=== PATIENT | female | born 1980 | race Caucasian/White ===

== ENCOUNTER 2016-06-19 16:59 | Emergency (ER) | payer OTHER ==
[~2016-06-19 16:59] MED LIST: AMOX500C PO; DOCU10CA PO; IBUP80TA PO; LEXA1TAB PO; LIDO1PAD EX; LINZ290C PO; MOTR200T44; MYLI40DR PO; PERCOCET PO; VICO5TAB16 PO
[2016-06-19] MEDS ORDERED: KETOROLAC 30 MG/ML VIAL (J1885) As Ordered ONE (17:57)
[2016-06-19] MEDS ORDERED: ACETAMINOPHEN 325 MG TAB As Ordered ONE (17:57)
[2016-06-19] MEDS ORDERED: TRIMETHOBENZAMIDE HCL INJ 200 MG/2 ML VIAL (J3250) As Ordered ONE (18:08)
[2016-06-19 18:15] LABS: BASO % 0.1 % (0.0-1.0); EOS # 0.1 K/mm3 (0.0-0.50); EOS % 0.8 % (0.0-3.0); LARGE UNSTAINED CELL # 0.1 K/mm3 (0.0-0.4); LARGE UNSTAINED CELL % 0.8 % (0.0-4.0); LYMPH # 0.5 K/mm3 (1.5-4.5); LYMPH % 3.9 % (24.0-44.0); MEAN CORPUSCULAR HEMOGLOBIN 31.6 pg (27.0-33.0); MEAN CORPUSCULAR HGB CONC 34.8 g/dl (32.0-36.5); MEAN CORPUSCULAR VOLUME 90.7 fl (80.0-96.0); MONO # 0.2 K/mm3 (0.0-0.8); MONO % 1.9 % (0.0-5.0); NEUTROPHILS # 11.1 K/mm3 (1.8-7.7); NEUTROPHILS % 92.5 % (36.0-66.0); PLATELET COUNT, AUTOMATED 286 k/mm3 (150-450); RED CELL DISTRIBUTION WIDTH 12.2 % (11.5-14.5)
[2016-06-19] MEDS ORDERED: GASTROGRAFIN SOLUTION 30ML (Q9963) As Ordered ONE (18:34)
--- NOTE | 2016-06-19 18:38 | REP ---
TWO VIEW CHEST: COMPARISON: 01/11/2004 There is no evidence of acute infiltrate. No pleural effusion is seen. The heart is normal in size. The mediastinal silhouette is unremarkable. The visualized osseous structures are intact. IMPRESSION: No acute pulmonary disease. Signed by Arnol Ames MD 06/19/2016 07:42 P
[2016-06-19 18:43] LABS: ALBUMIN 3.9 GM/DL (3.2-5.2); ALBUMIN/GLOBULIN RATIO 1.03 (1.00-1.93); ALKALINE PHOSPHATASE 67 U/L (45-117); ALT/SGPT 48 U/L (12-78); AMYLASE 23 U/L (25-115); ANION GAP 9 MEQ/L (8-16); AST/SGOT 21 U/L (15-37); BILIRUBIN,DIRECT 0.2 MG/DL (0.0-0.2); BILIRUBIN,TOTAL 1.5 MG/DL (0.2-1.0); BLOOD UREA NITROGEN 12 MG/DL (7-18); CALCIUM LEVEL 8.9 MG/DL (8.5-10.1); CARBON DIOXIDE LEVEL 26 MEQ/L (21-32); CHLORIDE LEVEL 104 MEQ/L (98-107); CREATININE FOR GFR 0.93 MG/DL (0.55-1.02); GLOMERULAR FILTRATION RATE > 60.0 (>60); GLUCOSE, FASTING 109 MG/DL (70-105); POTASSIUM SERUM 3.8 MEQ/L (3.5-5.1); SODIUM LEVEL 139 MEQ/L (136-145); TOTAL PROTEIN 7.7 GM/DL (6.4-8.2)
[2016-06-19] MEDS ORDERED: ISOVUE-370 76% 100ML VIAL (Q9967) As Ordered ONE (20:52)
--- NOTE | 2016-06-19 22:20 | REPUSA ---
CLINICAL HISTORY: Periumbilical pain TECHNIQUE : A CT of the abdomen and pelvis was performed following the administration of oral and int ravenous contrast from the level of the heart to the proximal femoral diaphyses. Multiplanar reformat s were also obtained in coronal and sagittal projections. COMPARISON: None FINDINGS: LOWER CHEST: The lung bases are clear. Heart is normal in size. No pleural or pericardial effusion is seen. LIVER: The liver is normal in size and contour. No hepatic lesion is seen. The portal and hepatic vei ns are patent. BILIARY SYSTEM: No intrahepatic biliary ductal dilatation is seen. The common duct is normal in calib er. The gallbladder is unremarkable with no focal or diffuse wall thickening seen. No pericholecystic fluid is seen. No calcified biliary calculi are identified. PANCREAS: The pancreas is normal in size, contour and density. No solid or cystic pancreatic mass is seen. No pancreatic duct dilatation is seen. SPLEEN: The spleen is normal in size and without focal lesion. ADRENALS: The adrenal glands are unremarkable. KIDNEYS/URETERS: The kidneys are normal in size and enhance normally. No calcified renal or ureteral calculi are seen. No suspicious renal mass or hydronephrosis is seen. The ureters are not dilated. URINARY BLADDER: The urinary bladder is unremarkable without calcified stone, wall thickening or dive rticula seen. UTERUS/ADNEXA: Uterus is absent. Bilateral adnexa. Within normal limits with corpus luteal cyst on le ft AORTA AND ILIAC ARTERIES: No aneurysmal dilatation of the aorta or iliac arteries is seen. INFERIOR VENA CAVA AND PELVIC VEINS: No deep venous thrombosis is seen. LYMPH NODES: No enlarged adenopathy. GASTROINTESTINAL: Stomach, duodenum , and bowel normal in caliber. PERITONEUM/RETROPERITONEUM: No ascites or suspicious fluid collection, extraluminal air, or suspiciou s mass. ABDOMINAL/PELVIC WALL: No hernia is identified. OSSEOUS STRUCTURES/SOFT TISSUES: No suspicious osseous lesion, acute fracture, or soft tissue abnorma lity. IMPRESSION : No acute intra-abdominal pelvic abnormality
[2016-06-19] MEDS ORDERED: ONDANSETRON 4MG/2ML VIAL (J2405) As Ordered ONE (22:50)
--- NOTE | 2016-06-19 23:01 | EDDOCDS ---
Nurse's Notes [facility] Name: Modesta Carson Age: 36 yrs Sex: Female : 1980 Arrival Date: 06/19/2016 Time: 16:59 Bed I1 / M1 Private MD: Alan [facility] [place] Diagnosis: Right lower quadrant abdominal tenderness;Diarrhea, unspecified;Acute upper respiratory infection, unspecified Presentation: 06/19 17:09 Presenting complaint: Patient states: Had some nasal congestion yesterday. Today has jo3 body aches and vomiting/diarrhea. Adult Sepsis Screening: The patient does not have new or worsening altered mentation. Patient's respiratory rate is less than 22. Systolic blood pressure is greater than 100. Patient has a qSOFA score of 0- Negative Sepsis Screen. Suicide/Homicide risk assessment- the patient denies having any suicidal and/or homicidal ideations and does not present with any other emotional, behavioral or mental health complaints. Status:. Status: The patient is a dependent. Transition of care: patient was not received from another setting of care. 17:09 Acuity: RAYSA Level 3 jo3 17:09 Method Of Arrival: Walkin/Carried/Asstd jo3 Triage Assessment: 17:12 General: Appears in no apparent distress, Behavior is appropriate for age, cooperative, jo3 pleasant. Pain: Pain currently is 8 out of 10 on a pain scale. HIV screening NA for this visit Offered previously. Neurological: Level of Consciousness is awake, alert, Oriented to person, place, time. Respiratory: Airway is patent Respiratory effort is even, unlabored. Derm: Skin is pink, warm & dry. HOSPITAL AIDE: 17:12 LMP N/A - Hysterectomy jo3 Historical: - Allergies: No known drug Allergies; - Home Meds: 1. Lexapro 20 mg Oral tab 1 tab once daily 2. Vitamin D 5000mg Oral daily 3. Linzess 145 mcg oral cap 1 cap once daily 4. Fish Oil 1,000 mg Oral cap daily - PMHx: IBS; Depression; Anxiety; - PSHx: Hysterectomy (2013); - Family history: Not pertinent. Screenin:53 Screening information is obtained from the patient. Fall risk: No risks identified. kc3 Assistance ADL's: requires no assistance with activities of daily living. Abuse/DV Screen: The patient / caregiver reports he/she is: not in a situation that causes fear, pain or injury. Nutritional screening: No deficits noted. home support is adequate. 22:58 Advance Directives: There is no active DNR order. mb9 Assessment: 19:06 General: Appears skin hot and dry. no resp distress noted. chest CTA. ABD soft and non jmk distended with bs + x 4. diffusely tender and describes nausea without active vomiting. GI: Bowel sounds present X 4 quads. Abd is tender to palpation X 4 quads. 19:38 General: Appears in no apparent distress, Behavior is appropriate for age, cooperative. mb9 Respiratory: Airway is patent Respiratory effort is even, unlabored. 21:14 Reassessment: Patient appears in no apparent distress at this time. General: Behavior mb9 is appropriate for age, cooperative. Respiratory: Airway is patent Respiratory effort is even, unlabored. 22:58 Reassessment: Patient appears in no apparent distress at this time. General: Appears in mb9 no apparent distress, Behavior is appropriate for age, cooperative. Respiratory: Airway is patent Respiratory effort is even, unlabored. GI: Reports nausea. Vital Signs: 17:01 BP 135 / 82; Pulse 123; Resp 18 S; Temp 100.2(O); Pulse Ox 97% on R/A; Weight 90.72 kg gr2 (R); Height 5 ft. 8 in. (172.72 cm) (R); Pain 4/10; 18:58 BP 123 / 69 LA Supine (auto/lg); Pulse 88; Resp 20; Temp 99.5; Pulse Ox 97% on R/A; bnb Pain 0/10; 22:58 BP 156 / 79; Pulse 74; Resp 17; Temp 98(O); Pulse Ox 99% ; mb9 17:01 Body Mass Index 30.41 (90.72 kg, 172.72 cm) gr2 Vitals: 17:01 Log In Time: June 19, 2016 at 17:01. gr2 ED Course: 17:01 Patient visited by Arabella Sandy. gr2 17:01 Alan [facility] [place] is Private Physician. gr2 17:01 Patient moved to Waiting gr2 17:02 Patient visited by Arabella Sandy. gr2 17:02 Patient moved to Pre RCE gr2 17:10 Triage Initiated jo3 17:16 Nikki Slaughter PA-C is PHCP. dt4 17:16 Martin Emerson MD is Attending Physician. dt4 17:16 Patient visited by Nikki Slaughter PA-C. dt4 17:16 Patient moved to Triage 1 ck1 17:28 Patient moved to I1 / M1 nb2 17:56 [facility] Payment Agreement was scanned into [employer] and attached to record. zo 18:12 PHCP role handed off by Nikki Slaughter PA-C mo1 18:12 Gabino Blake PA is PHCP. mo1 18:25 Patient visited by Beverly Chau RN. kc3 18:30 Inserted saline lock: 20 gauge in right antecubital area. jmk 18:54 Patient visited by Beverly Chau RN. kc3 18:58 Patient visited by Liliana Landers PCA. bnb 19:22 Chest, 2 View (pa\E\lat) Returned. EDMS 20:10 Patient visited by Gabino Marquis RN. mb9 20:27 Chest, 2 View (pa\E\lat) Returned. EDMS 21:14 Patient visited by Gabino Marquis RN. mb9 22:28 Alan [facility] [place] is Referral Physician. mo1 22:38 CT ABD & PELVIS: IV and Oral Contrast Returned. EDMS 22:58 The patient / caregiver is instructed regarding the plan of care and ED course. mb9 22:58 Discontinued IV lock intact, bleeding controlled, pressure dressing applied, No mb9 redness/swelling at site. No procedures done that require assistance. Administered Medications: 18:22 Drug: Tigan 200 mg [Tigan 100 mg/mL intramuscular solution (2 mL)] Route: IM; Site: kc3 right gluteus; 18:23 Drug: NS 0.9% 1000 ml [sodium chloride 0.9 % intravenous solution] Route: IV; Rate: kc3 bolus; Site: right antecubital; 18:23 Drug: ketorolac 30 mg [ketorolac 30 mg/mL (1 mL) injection solution (1 mL)] Route: IVP; kc3 Site: right antecubital; 18:23 Drug: Acetaminophen 975 mg [acetaminophen 325 mg tablet (3 tabs)] Route: PO; kc3 18:51 Drug: Diatrizoate Meglumine & Sodium 10 ml [diatrizoate meglumine and diat.sodium 66 kc3 %-10 % oral solution (10 mL)] Route: PO; 19:19 Drug: Diatrizoate Meglumine & Sodium 10 ml [diatrizoate meglumine and diat.sodium 66 mb9 %-10 % oral solution (10 mL)] Route: PO; 22:58 Drug: Ondansetron 4 mg [ondansetron HCl 2 mg/mL intravenous solution (2 mL)] Route: mb9 IVP; Site: right forearm; Order Results: Lab Order: Amylase; SPEC'M 06/19/16 18:01 Test: AMYLASE; Value: 23; Range: 25-115; Abnormal: Below low normal; Units: U/L; Status: F Lab Order: Basic Metabolic Profile; SPEC'M 06/19/16 18:01 Test: GLUCOSE, FASTING; Value: 109; Range: 70-105; Abnormal: Above high normal; Units: MG/DL; Status: F Test: BLOOD UREA NITROGEN; Value: 12; Range: 7-18; Units: MG/DL; Status: F Test: CREATININE FOR GFR; Value: 0.93; Range: 0.55-1.02; Units: MG/DL; Status: F Test: GLOMERULAR FILTRATION RATE; Value: > 60.0; Range: >60; Status: F Test: SODIUM LEVEL; Value: 139; Range: 136-145; Units: MEQ/L; Status: F Test: POTASSIUM SERUM; Value: 3.8; Range: 3.5-5.1; Units: MEQ/L; Status: F Test: CHLORIDE LEVEL; Value: 104; Range: 98-107; Units: MEQ/L; Status: F Test: CARBON DIOXIDE LEVEL; Value: 26; Range: 21-32; Units: MEQ/L; Status: F Test: ANION GAP; Value: 9; Range: 8-16; Units: MEQ/L; Status: F Test: CALCIUM LEVEL; Value: 8.9; Range: 8.5-10.1; Units: MG/DL; Status: F Test Note: ; Units are mL/min/1.73 m2 Chronic Kidney Disease Staging per NKF: Stage I & II GFR >=60 Normal to Mildly Decreased Stage III GFR 30-59 Moderately Decreased Stage IV GFR 15-29 Severely Decreased Stage V GFR <15 Very Little GFR Left ESRD GFR <15 on DIRECTOR OF PUPIL PERSONNEL PROGRAM Lab Order: CBC with Diff; SPEC'M 06/19/16 18:01 Test: WHITE BLOOD COUNT; Value: 12.0; Range: 4.0-10.0; Abnormal: Above high normal; Units: K/mm3; Status: F Test: RED BLOOD COUNT; Value: 5.11; Range: 4.00-5.40; Units: M/mm3; Status: F Test: HEMOGLOBIN; Value: 16.1; Range: 12.0-16.0; Abnormal: Above high normal; Units: g/dl; Status: F Test: HEMATOCRIT; Value: 46.4; Range: 36.0-47.0; Units: %; Status: F Test: MEAN CORPUSCULAR VOLUME; Value: 90.7; Range: 80.0-96.0; Units: fl; Status: F Test: MEAN CORPUSCULAR HEMOGLOBIN; Value: 31.6; Range: 27.0-33.0; Units: pg; Status: F Test: MEAN CORPUSCULAR HGB CONC; Value: 34.8; Range: 32.0-36.5; Units: g/dl; Status: F Test: RED CELL DISTRIBUTION WIDTH; Value: 12.2; Range: 11.5-14.5; Units: %; Status: F Test: PLATELET COUNT, AUTOMATED; Value: 286; Range: 150-450; Units: k/mm3; Status: F Test: NEUTROPHILS %; Value: 92.5; Range: 36.0-66.0; Abnormal: Above high normal; Units: %; Status: F Test: LYMPH %; Value: 3.9; Range: 24.0-44.0; Abnormal: Below low normal; Units: %; Status: F Test: MONO %; Value: 1.9; Range: 0.0-5.0; Units: %; Status: F Test: EOS %; Value: 0.8; Range: 0.0-3.0; Units: %; Status: F Test: BASO %; Value: 0.1; Range: 0.0-1.0; Units: %; Status: F Test: LARGE UNSTAINED CELL %; Value: 0.8; Range: 0.0-4.0; Units: %; Status: F Test: NEUTROPHILS #; Value: 11.1; Range: 1.8-7.7; Abnormal: Above high normal; Units: K/mm3; Status: F Test: LYMPH #; Value: 0.5; Range: 1.5-4.5; Abnormal: Below low normal; Units: K/mm3; Status: F Test: MONO #; Value: 0.2; Range: 0.0-0.8; Units: K/mm3; Status: F Test: EOS #; Value: 0.1; Range: 0.0-0.50; Units: K/mm3; Status: F Test: BASO #; Value: 0.0; Range: 0.0-0.2; Units: K/mm3; Status: F Test: LARGE UNSTAINED CELL #; Value: 0.1; Range: 0.0-0.4; Units: K/mm3; Status: F Lab Order: Lipase; [facility]' 06/19/16 18:01 Test: LIPASE; Value: 109; Range: 73-393; Units: U/L; Status: F Lab Order: Liver Profile; SPEC' 06/19/16 18:01 Test: AST/SGOT; Value: 21; Range: 15-37; Units: U/L; Status: F Test: ALT/SGPT; Value: 48; Range: 12-78; Units: U/L; Status: F Test: ALKALINE PHOSPHATASE; Value: 67; Range: 45-117; Units: U/L; Status: F Test: BILIRUBIN,TOTAL; Value: 1.5; Range: 0.2-1.0; Abnormal: Above high normal; Units: MG/DL; Status: F Test: BILIRUBIN,DIRECT; Value: 0.2; Range: 0.0-0.2; Units: MG/DL; Status: F Test: TOTAL PROTEIN; Value: 7.7; Range: 6.4-8.2; Units: GM/DL; Status: F Test: ALBUMIN; Value: 3.9; Range: 3.2-5.2; Units: GM/DL; Status: F Test: ALBUMIN/GLOBULIN RATIO; Value: 1.03; Range: 1.00-1.93; Status: F Lab Order: Urinalysis; SPEC' 06/19/16 19:08 Test: APPEARANCE, URINE; Value: HAZY; Range: CLEAR; Status: F Test: COLOR, URINE; Value: YELLOW; Range: YELLOW; Status: F Test: PH,URINE; Value: 5.0; Range: 5.0-9.0; Units: UNITS; Status: F Test: SPECIFIC GRAVITY URINE AUTO; Value: 1.023; Range: 1.002-1.035; Status: F Test: PROTEIN, URINE AUTO; Value: NEGATIVE; Range: NEGATIVE; Units: mg/dL; Status: F Test: GLUCOSE, URINE (UA) AUTO; Value: NEGATIVE; Range: NEGATIVE; Units: mg/dL; Status: F Test: KETONE, URINE AUTO; Value: TRACE; Range: NEGATIVE; Abnormal: Above high normal; Units: mg/dL; Status: F Test: UROBILINOGEN, URINE AUTO; Value: 2.0; Range: 0.0-2.0; Abnormal: Above high normal; Units: mg/dL; Status: F Test: BILIRUBIN, URINE AUTO; Value: NEGATIVE; Range: NEGATIVE; Status: F Test: NITRITE, URINE AUTO; Value: NEGATIVE; Range: NEGATIVE; Status: F Test: LEUKOCYTE ESTERASE, URINE AUTO; Value: NEGATIVE; Range: NEGATIVE; Status: F Test: BLOOD, URINE BLOOD; Value: NEGATIVE; Range: NEGATIVE; Status: F Test: WBC, URINE AUTO; Value: 1; Range: 0-3; Units: /HPF; Status: F Test: RBC, URINE AUTO; Value: 0; Range: 0-3; Units: /HPF; Status: F Test: BACTERIA, URINE AUTO; Value: NEGATIVE; Range: NEGATIVE; Status: F Test: SQUAMOUS EPITHELIAL CELL UR AU; Value: 1; Range: 0-6; Units: /HPF; Status: F Test: MUCUS, URINE; Value: SMALL; Range: NEGATIVE; Status: F Test: HYALINE CAST, URINE AUTO; Value: 0; Range: 0-1; Units: /LPF; Status: F Lab Order: CRP; SPEC'M 06/19/16 18:01 Test: C REACTIVE PROTEIN QUANTITATIV; Value: 3.76; Range: 0.00-0.30; Abnormal: Above high normal; Units: MG/DL; Status: F Lab Order: -Influenza A&B Rapid Antigen - Nose; SPEC'M 06/19/16 18:01 Test: INFLUENZA A RAPID SCR by ICA; Value: INFLUENZA A RESULTS NEGATIVE; Status: F Test: INFLUENZA A RAPID SCR by ICA; Value: Comments:; Status: F Test: INFLUENZA B RAPID SCR by ICA; Value: INFLUENZA B RESULTS NEGATIVE; Status: F Test Note: ; The Influenza test is a direct rapid immunoassay for the qualitative detection of Influenza viral antigen. Cell culture (Viral Culture) testing should be considered to confirm NEGATIVE results and to assist in detecting other viruses that can provide similar clinical symptoms. Please contact the lab within 24 hours ([phone]) if confirmatory testing is desired. Radiology Order: CT ABD & PELVIS: IV and Oral Contrast Test: CT ABD & PELVIS: IV and Oral Contrast REASON FOR EXAMINATION: PERIUMBILICAL PAIN; ; CLINICAL HISTORY: Periumbilical pain; TECHNIQUE : A CT of the abdomen and pelvis was performed following the administration of oral and int; ravenous contrast from the level of the heart to the proximal femoral diaphyses. Multiplanar reformat; s were also obtained in coronal and sagittal projections.; COMPARISON: None; FINDINGS:; LOWER CHEST: The lung bases are clear. Heart is normal in size. No pleural or pericardial effusion is; seen.; LIVER: The liver is normal in size and contour. No hepatic lesion is seen. The portal and hepatic vei; ns are patent.; BILIARY SYSTEM: No intrahepatic biliary ductal dilatation is seen. The common duct is normal in calib; er. The gallbladder is unremarkable with no focal or diffuse wall thickening seen. No pericholecystic; fluid is seen. No calcified biliary calculi are identified.; PANCREAS: The pancreas is normal in size, contour and density. No solid or cystic pancreatic mass is; seen. No pancreatic duct dilatation is seen.; SPLEEN: The spleen is normal in size and without focal lesion.; ADRENALS: The adrenal glands are unremarkable.; KIDNEYS/URETERS: The kidneys are normal in size and enhance normally. No calcified renal or ureteral; calculi are seen. No suspicious renal mass or hydronephrosis is seen. The ureters are not dilated.; URINARY BLADDER: The urinary bladder is unremarkable without calcified stone, wall thickening or dive; rticula seen.; UTERUS/ADNEXA: Uterus is absent. Bilateral adnexa. Within normal limits with corpus luteal cyst on le; ft; AORTA AND ILIAC ARTERIES: No aneurysmal dilatation of the aorta or iliac arteries is seen.; INFERIOR VENA CAVA AND PELVIC VEINS: No deep venous thrombosis is seen.; LYMPH NODES: No enlarged adenopathy.; GASTROINTESTINAL: Stomach, duodenum , and bowel normal in caliber.; PERITONEUM/RETROPERITONEUM: No ascites or suspicious fluid collection, extraluminal air, or suspiciou; s mass.; ABDOMINAL/PELVIC WALL: No hernia is identified.; OSSEOUS STRUCTURES/SOFT TISSUES: No suspicious osseous lesion, acute fracture, or soft tissue abnorma; lity.; IMPRESSION :; No acute intra-abdominal pelvic abnormality; ; Radiology Order: Chest, 2 View (pa\E\lat) Test: Chest, 2 View (pa\E\lat) REASON FOR EXAMINATION: FEVER;Cough; TWO VIEW CHEST:; ; COMPARISON: 01/11/2004; ; There is no evidence of acute infiltrate.; ; No pleural effusion is seen.; ; The heart is normal in size.; ; The mediastinal silhouette is unremarkable.; ; The visualized osseous structures are intact.; ; IMPRESSION:; ; No acute pulmonary disease.; ; ; Signed by; Arnol Ames MD 06/19/2016 07:42 P; Outcome: 22:28 Discharge ordered by Provider. mo1 22:58 Discharge Assessment: Patient awake, alert and oriented x 3. No cognitive and/or mb9 functional deficits noted. Patient verbalized understanding of disposition instructions. patient administered narcotics - no. The following High Risk Discharge criteria are identified: None. Discharged to home ambulatory. Condition: good Condition: stable Condition: improved. Discharge instructions given to patient, Instructed on discharge instructions, follow up and referral plans. medication usage, Demonstrated understanding of instructions, medications, Pt was receptive of discharge instructions/ teaching. No special radiology studies were completed. Property :Personal belongings accompany Pt. 23:00 Patient left the ED. mb9 Signatures: Dispatcher [employer] EDMS Yao Nevarez RN RN jmk Kim-Ashcraft, Connie, RN RN ck1 Modesta Haas RN RN jo3 Olin, Zoeann zo Raymond, Gainslee gr2 Gabino Blake PA PA mo1 Nikki Slaughter PA-C PA-C dt4 Gabino Marquis,RN RN mb9 Beverly Chau,HANK RN kc3 Keyla Kaba nb2 Liliana Landers, CLIENT ADVISOR CLIENT ADVISOR bnb MTDD
--- NOTE | 2016-06-19 23:01 | EDDOCDS ---
Physician Documentation [facility] Name: Modesta Carson Age: 36 yrs Sex: Female : 1980 Arrival Date: 06/19/2016 Time: 16:59 Bed I1 / M1 Private MD: RACH Phillips Disposition: 06/19/16 22:28 Discharged to Home/Self Care. Impression: Right lower quadrant abdominal tenderness, Diarrhea, unspecified, Acute upper respiratory infection, unspecified. - Condition is Stable. - Discharge Instructions: Abdominal Pain, Adult, Upper Respiratory Infection, Adult. - Prescriptions for ZOFRAN ODT 4 mg - dissolve 1 tablet by ORAL route 4 times per day As needed do not chew, do not swallow whole; 10 tablet. - Medication Reconciliation, Local Pharmacy Hours form. - Follow up: RACH Phillips; When: Call to arrange an appointment; Reason: Recheck today's complaints, Continuance of care. - Problem is new. - Symptoms are unchanged. Historical: - Allergies: No known drug Allergies; - Home Meds: 1. Lexapro 20 mg Oral tab 1 tab once daily 2. Vitamin D 5000mg Oral daily 3. Linzess 145 mcg oral cap 1 cap once daily 4. Fish Oil 1,000 mg Oral cap daily - PMHx: IBS; Depression; Anxiety; - PSHx: Hysterectomy (2013); - Family history: Not pertinent. 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 8 in. (172.72 cm) (R); Pain 4/10; 18:58 BP 123 / 69 LA Supine (auto/lg); Pulse 88; Resp 20; Temp 99.5; Pulse Ox 97% on R/A; bnb Pain 0/10; 22:58 BP 156 / 79; Pulse 74; Resp 17; Temp 98(O); Pulse Ox 99% ; mb9 17:01 Body Mass Index 30.41 (90.72 kg, 172.72 cm) gr2 MDM: 17:33 NS 0.9% 1000 ml IV at bolus once ordered. dt4 17:33 ketorolac 30 mg IVP once ordered. dt4 17:33 IV Saline Lock ordered. dt4 17:33 Undress patient appropriately for examination ordered. dt4 17:33 Obtain sample by nasopharyngeal swab ordered. dt4 17:33 Acetaminophen Tablet 975 mg PO once ordered. dt4 17:33 Tigan 200 mg IM once ordered. dt4 17:34 Amylase Ordered. EDMS 17:34 Basic Metabolic Profile Ordered. EDMS 17:34 CBC with Diff Ordered. EDMS 17:34 Lipase Ordered. EDMS 17:34 Liver Profile Ordered. EDMS 17:34 Urinalysis Ordered. EDMS 17:34 CRP Ordered. EDMS 17:34 Urine Culture Ordered. EDMS 17:34 -Influenza A&B Rapid Antigen - Nose Ordered. EDMS 17:35 Chest, 2 View (pa\E\lat) Ordered. EDMS 17:35 CT ABD & PELVIS: IV and Oral Contrast Ordered. EDMS 17:35 NOTHING BY MOUTH+DIET ordered. EDMS 17:56 Financial registration complete. zo 17:56 [facility] Payment Agreement was scanned into [employer] and attached to record. zo 18:19 CBC with Diff Reviewed. mo1 18:31 -Influenza A&B Rapid Antigen - Nose Reviewed. mo1 18:51 Diatrizoate Meglumine & Sodium Liquid 10 ml PO once; mix in 290cc of water ordered. kc3 18:51 Diatrizoate Meglumine & Sodium Liquid 10 ml PO once; mix in 290cc of water - given at kc3 1910 ordered. 19:10 CRP Reviewed. mo1 19:11 Liver Profile Reviewed. mo1 19:11 Basic Metabolic Profile Reviewed. mo1 19:11 Amylase Reviewed. mo1 19:11 Lipase Reviewed. mo1 19:25 Chest, 2 View (pa\E\lat) Reviewed. mo1 19:25 Urinalysis Reviewed. mo1 22:42 Chest, 2 View (pa\E\lat) Reviewed. mo1 22:42 CT ABD & PELVIS: IV and Oral Contrast Reviewed. mo1 22:50 Ondansetron 4 mg IVP once ordered. mo1 Administered Medications: 18:22 Drug: Tigan 200 mg [Tigan 100 mg/mL intramuscular solution (2 mL)] Route: IM; Site: kc3 right gluteus; 18:23 Drug: NS 0.9% 1000 ml [sodium chloride 0.9 % intravenous solution] Route: IV; Rate: kc3 bolus; Site: right antecubital; 18:23 Drug: ketorolac 30 mg [ketorolac 30 mg/mL (1 mL) injection solution (1 mL)] Route: IVP; kc3 Site: right antecubital; 18:23 Drug: Acetaminophen 975 mg [acetaminophen 325 mg tablet (3 tabs)] Route: PO; kc3 18:51 Drug: Diatrizoate Meglumine & Sodium 10 ml [diatrizoate meglumine and diat.sodium 66 kc3 %-10 % oral solution (10 mL)] Route: PO; 19:19 Drug: Diatrizoate Meglumine & Sodium 10 ml [diatrizoate meglumine and diat.sodium 66 mb9 %-10 % oral solution (10 mL)] Route: PO; 22:58 Drug: Ondansetron 4 mg [ondansetron HCl 2 mg/mL intravenous solution (2 mL)] Route: mb9 IVP; Site: right forearm; Signatures: Dispatcher [employer] EDYao Campbell,RN RN Modesta CobbRN RN jo3 Precious Mcdonough Michael, PA PA mo1 Nikki Slaughter, PATomasz PATomasz saeed4 Gabino Marquis,RN RN mb9 Beverly Chau RN RN kc3 The chart was reviewed and I authenticate all verbal orders and agree with the evaluation and treatment provided.Corrections: (The following items were deleted from the chart) 17:44 17:33 UCG by Nursing ordered. dixie conway Attachments: 17:56 [facility] [place] zo MTDD
--- NOTE | 2016-06-22 00:01 | EDDOCDS ---
Physician Documentation [facility] Name: Modesta Carson Age: 36 yrs Sex: Female : 1980 Arrival Date: 06/19/2016 Time: 16:59 Bed I1 / M1 Private MD: RACH Phillips Disposition: 06/19/16 22:28 Discharged to Home/Self Care. Impression: Right lower quadrant abdominal tenderness, Diarrhea, unspecified, Acute upper respiratory infection, unspecified. - Condition is Stable. - Discharge Instructions: Abdominal Pain, Adult, Upper Respiratory Infection, Adult. - Prescriptions for ZOFRAN ODT 4 mg - dissolve 1 tablet by ORAL route 4 times per day As needed do not chew, do not swallow whole; 10 tablet. - Medication Reconciliation, Local Pharmacy Hours form. - Follow up: RACH Phillips; When: Call to arrange an appointment; Reason: Recheck today's complaints, Continuance of care. - Problem is new. - Symptoms are unchanged. Historical: - Allergies: No known drug Allergies; - Home Meds: 1. Lexapro 20 mg Oral tab 1 tab once daily 2. Vitamin D 5000mg Oral daily 3. Linzess 145 mcg oral cap 1 cap once daily 4. Fish Oil 1,000 mg Oral cap daily - PMHx: IBS; Depression; Anxiety; - PSHx: Hysterectomy (2013); - Family history: Not pertinent. WELFARE OFFICER: 06/19 17:12 LMP N/A - Hysterectomy jo3 Vital Signs: 17:01 BP 135 / 82; Pulse 123; Resp 18 S; Temp 100.2(O); Pulse Ox 97% on R/A; Weight 90.72 kg gr2 / 200 lbs (R); Height 5 ft. 8 in. (172.72 cm) (R); Pain 4/10; 18:58 BP 123 / 69 LA Supine (auto/lg); Pulse 88; Resp 20; Temp 99.5; Pulse Ox 97% on R/A; bnb Pain 0/10; 22:58 BP 156 / 79; Pulse 74; Resp 17; Temp 98(O); Pulse Ox 99% ; mb9 17:01 Body Mass Index 30.41 (90.72 kg, 172.72 cm) gr2 MDM: 17:33 NS 0.9% 1000 ml IV at bolus once ordered. dt4 17:33 ketorolac 30 mg IVP once ordered. dt4 17:33 IV Saline Lock ordered. dt4 17:33 Undress patient appropriately for examination ordered. dt4 17:33 Obtain sample by nasopharyngeal swab ordered. dt4 17:33 Acetaminophen Tablet 975 mg PO once ordered. dt4 17:33 Tigan 200 mg IM once ordered. dt4 17:34 Amylase Ordered. EDMS 17:34 Basic Metabolic Profile Ordered. EDMS 17:34 CBC with Diff Ordered. EDMS 17:34 Lipase Ordered. EDMS 17:34 Liver Profile Ordered. EDMS 17:34 Urinalysis Ordered. EDMS 17:34 CRP Ordered. EDMS 17:34 Urine Culture Ordered. EDMS 17:34 -Influenza A&B Rapid Antigen - Nose Ordered. EDMS 17:35 Chest, 2 View (pa\E\lat) Ordered. EDMS 17:35 CT ABD & PELVIS: IV and Oral Contrast Ordered. EDMS 17:35 NOTHING BY MOUTH+DIET ordered. EDMS 17:56 Financial registration complete. zo 17:56 COUNT INCLUDES THE [facility] Payment Agreement was scanned into [employer] and attached to record. zo 18:19 CBC with Diff Reviewed. mo1 18:31 -Influenza A&B Rapid Antigen - Nose Reviewed. mo1 18:51 Diatrizoate Meglumine & Sodium Liquid 10 ml PO once; mix in 290cc of water ordered. kc3 18:51 Diatrizoate Meglumine & Sodium Liquid 10 ml PO once; mix in 290cc of water - given at kc3 1910 ordered. 19:10 CRP Reviewed. mo1 19:11 Liver Profile Reviewed. mo1 19:11 Basic Metabolic Profile Reviewed. mo1 19:11 Amylase Reviewed. mo1 19:11 Lipase Reviewed. mo1 19:25 Chest, 2 View (pa\E\lat) Reviewed. mo1 19:25 Urinalysis Reviewed. mo1 22:42 Chest, 2 View (pa\E\lat) Reviewed. mo1 22:42 CT ABD & PELVIS: IV and Oral Contrast Reviewed. mo1 22:50 Ondansetron 4 mg IVP once ordered. mo1 06/20 10:06 T-Sheet-- Draft Copy was scanned into [employer] and attached to record. gb 10:06 Radiology Report was scanned into [employer] and attached to record. gb Administered Medications: 06/19 18:22 Drug: Tigan 200 mg [Tigan 100 mg/mL intramuscular solution (2 mL)] Route: IM; Site: kc3 right gluteus; 18:23 Drug: NS 0.9% 1000 ml [sodium chloride 0.9 % intravenous solution] Route: IV; Rate: kc3 bolus; Site: right antecubital; 18:23 Drug: ketorolac 30 mg [ketorolac 30 mg/mL (1 mL) injection solution (1 mL)] Route: IVP; kc3 Site: right antecubital; 18:23 Drug: Acetaminophen 975 mg [acetaminophen 325 mg tablet (3 tabs)] Route: PO; kc3 18:51 Drug: Diatrizoate Meglumine & Sodium 10 ml [diatrizoate meglumine and diat.sodium 66 kc3 %-10 % oral solution (10 mL)] Route: PO; 19:19 Drug: Diatrizoate Meglumine & Sodium 10 ml [diatrizoate meglumine and diat.sodium 66 mb9 %-10 % oral solution (10 mL)] Route: PO; 22:58 Drug: Ondansetron 4 mg [ondansetron HCl 2 mg/mL intravenous solution (2 mL)] Route: mb9 IVP; Site: right forearm; Signatures: Dispatcher [employer] EDYao Campbell,RN Adelaida Purdy, Modesta Bee RN RN jo3 Olin, Zoeann zo O'Hagan, Michael, PA PA mo1 Tschudi, Diane, PA-Mat PA-Gabino Quarles RN RN mb9 Beverly Chau RN RN kc3 The chart was reviewed and I authenticate all verbal orders and agree with the evaluation and treatment provided.Corrections: (The following items were deleted from the chart) 17:44 17:33 UCG by Nursing ordered. dixie conway Attachments: 17:56 COUNT INCLUDES THE [facility] Payment Agreement zo 06/20 10:06 T-Sheet-- Draft Copy gb Chart Complete MTDD
--- NOTE | 2016-06-22 00:01 | EDDOCDS ---
Nurse's Notes [facility] Name: Modesta Carson Age: 36 yrs Sex: Female : 1980 Arrival Date: 06/19/2016 Time: 16:59 Bed I1 / M1 Private MD: Alan [facility] Diagnosis: Right lower quadrant abdominal tenderness;Diarrhea, unspecified;Acute upper respiratory infection, unspecified Presentation: 06/19 17:09 Presenting complaint: Patient states: Had some nasal congestion yesterday. Today has jo3 body aches and vomiting/diarrhea. Adult Sepsis Screening: The patient does not have new or worsening altered mentation. Patient's respiratory rate is less than 22. Systolic blood pressure is greater than 100. Patient has a qSOFA score of 0- Negative Sepsis Screen. Suicide/Homicide risk assessment- the patient denies having any suicidal and/or homicidal ideations and does not present with any other emotional, behavioral or mental health complaints. Status:. Status: The patient is a dependent. Transition of care: patient was not received from another setting of care. 17:09 Acuity: RAYSA Level 3 jo3 17:09 Method Of Arrival: Walkin/Carried/Asstd jo3 Triage Assessment: 17:12 General: Appears in no apparent distress, Behavior is appropriate for age, cooperative, jo3 pleasant. Pain: Pain currently is 8 out of 10 on a pain scale. HIV screening NA for this visit Offered previously. Neurological: Level of Consciousness is awake, alert, Oriented to person, place, time. Respiratory: Airway is patent Respiratory effort is even, unlabored. Derm: Skin is pink, warm & dry. SLATE PICKER: 17:12 LMP N/A - Hysterectomy jo3 Historical: - Allergies: No known drug Allergies; - Home Meds: 1. Lexapro 20 mg Oral tab 1 tab once daily 2. Vitamin D 5000mg Oral daily 3. Linzess 145 mcg oral cap 1 cap once daily 4. Fish Oil 1,000 mg Oral cap daily - PMHx: IBS; Depression; Anxiety; - PSHx: Hysterectomy (2013); - Family history: Not pertinent. Screenin:53 Screening information is obtained from the patient. Fall risk: No risks identified. kc3 Assistance ADL's: requires no assistance with activities of daily living. Abuse/DV Screen: The patient / caregiver reports he/she is: not in a situation that causes fear, pain or injury. Nutritional screening: No deficits noted. home support is adequate. 22:58 Advance Directives: There is no active DNR order. mb9 Assessment: 19:06 General: Appears skin hot and dry. no resp distress noted. chest CTA. ABD soft and non jmk distended with bs + x 4. diffusely tender and describes nausea without active vomiting. GI: Bowel sounds present X 4 quads. Abd is tender to palpation X 4 quads. 19:38 General: Appears in no apparent distress, Behavior is appropriate for age, cooperative. mb9 Respiratory: Airway is patent Respiratory effort is even, unlabored. 21:14 Reassessment: Patient appears in no apparent distress at this time. General: Behavior mb9 is appropriate for age, cooperative. Respiratory: Airway is patent Respiratory effort is even, unlabored. 22:58 Reassessment: Patient appears in no apparent distress at this time. General: Appears in mb9 no apparent distress, Behavior is appropriate for age, cooperative. Respiratory: Airway is patent Respiratory effort is even, unlabored. GI: Reports nausea. Vital Signs: 17:01 BP 135 / 82; Pulse 123; Resp 18 S; Temp 100.2(O); Pulse Ox 97% on R/A; Weight 90.72 kg gr2 (R); Height 5 ft. 8 in. (172.72 cm) (R); Pain 4/10; 18:58 BP 123 / 69 LA Supine (auto/lg); Pulse 88; Resp 20; Temp 99.5; Pulse Ox 97% on R/A; bnb Pain 0/10; 22:58 BP 156 / 79; Pulse 74; Resp 17; Temp 98(O); Pulse Ox 99% ; mb9 17:01 Body Mass Index 30.41 (90.72 kg, 172.72 cm) gr2 Vitals: 17:01 Log In Time: June 19, 2016 at 17:01. gr2 ED Course: 17:01 Patient visited by Arabella Sandy. gr2 17:01 Alan [facility] [place] Private Physician. gr2 17:01 Patient moved to Waiting gr2 17:02 Patient visited by Arabella Sandy. gr2 17:02 Patient moved to Pre RCE gr2 17:10 Triage Initiated jo3 17:16 Nikki Slaughter PA-C is PHCP. dt4 17:16 Martin Emerson MD is Attending Physician. dt4 17:16 Patient visited by Nikki Slaughter PA-C. dt4 17:16 Patient moved to Triage 1 ck1 17:28 Patient moved to I1 / M1 nb2 17:56 [facility] Payment Agreement was scanned into [employer] and attached to record. zo 18:12 PHCP role handed off by Nikki Slaughter PA-C mo1 18:12 Gabino Blake PA is PHCP. mo1 18:25 Patient visited by Beverly Chau RN. kc3 18:30 Inserted saline lock: 20 gauge in right antecubital area. jmk 18:54 Patient visited by Beverly Chau RN. kc3 18:58 Patient visited by Liliana Landers PCA. bnb 19:22 Chest, 2 View (pa\E\lat) Returned. EDMS 20:10 Patient visited by Gabino Marquis RN. mb9 20:27 Chest, 2 View (pa\E\lat) Returned. EDMS 21:14 Patient visited by Gabino Marquis RN. mb9 22:28 Alan [facility] [place] Referral Physician. mo1 22:38 CT ABD & PELVIS: IV and Oral Contrast Returned. EDMS 22:58 The patient / caregiver is instructed regarding the plan of care and ED course. mb9 22:58 Discontinued IV lock intact, bleeding controlled, pressure dressing applied, No mb9 redness/swelling at site. No procedures done that require assistance. 06/20 10:06 T-Sheet-- Draft Copy was scanned into [employer] and attached to record. gb 10:06 Radiology Report was scanned into [employer] and attached to record. gb Administered Medications: 06/19 18:22 Drug: Tigan 200 mg [Tigan 100 mg/mL intramuscular solution (2 mL)] Route: IM; Site: kc3 right gluteus; 18:23 Drug: NS 0.9% 1000 ml [sodium chloride 0.9 % intravenous solution] Route: IV; Rate: kc3 bolus; Site: right antecubital; 18:23 Drug: ketorolac 30 mg [ketorolac 30 mg/mL (1 mL) injection solution (1 mL)] Route: IVP; kc3 Site: right antecubital; 18:23 Drug: Acetaminophen 975 mg [acetaminophen 325 mg tablet (3 tabs)] Route: PO; kc3 18:51 Drug: Diatrizoate Meglumine & Sodium 10 ml [diatrizoate meglumine and diat.sodium 66 kc3 %-10 % oral solution (10 mL)] Route: PO; 19:19 Drug: Diatrizoate Meglumine & Sodium 10 ml [diatrizoate meglumine and diat.sodium 66 mb9 %-10 % oral solution (10 mL)] Route: PO; 22:58 Drug: Ondansetron 4 mg [ondansetron HCl 2 mg/mL intravenous solution (2 mL)] Route: mb9 IVP; Site: right forearm; Order Results: Lab Order: Amylase; SPEC'M 06/19/16 18:01 Test: AMYLASE; Value: 23; Range: 25-115; Abnormal: Below low normal; Units: U/L; Status: F Lab Order: Basic Metabolic Profile; SPEC' 06/19/16 18:01 Test: GLUCOSE, FASTING; Value: 109; Range: 70-105; Abnormal: Above high normal; Units: MG/DL; Status: F Test: BLOOD UREA NITROGEN; Value: 12; Range: 7-18; Units: MG/DL; Status: F Test: CREATININE FOR GFR; Value: 0.93; Range: 0.55-1.02; Units: MG/DL; Status: F Test: GLOMERULAR FILTRATION RATE; Value: > 60.0; Range: >60; Status: F Test: SODIUM LEVEL; Value: 139; Range: 136-145; Units: MEQ/L; Status: F Test: POTASSIUM SERUM; Value: 3.8; Range: 3.5-5.1; Units: MEQ/L; Status: F Test: CHLORIDE LEVEL; Value: 104; Range: 98-107; Units: MEQ/L; Status: F Test: CARBON DIOXIDE LEVEL; Value: 26; Range: 21-32; Units: MEQ/L; Status: F Test: ANION GAP; Value: 9; Range: 8-16; Units: MEQ/L; Status: F Test: CALCIUM LEVEL; Value: 8.9; Range: 8.5-10.1; Units: MG/DL; Status: F Test Note: ; Units are mL/min/1.73 m2 Chronic Kidney Disease Staging per NKF: Stage I & II GFR >=60 Normal to Mildly Decreased Stage III GFR 30-59 Moderately Decreased Stage IV GFR 15-29 Severely Decreased Stage V GFR <15 Very Little GFR Left ESRD GFR <15 on SECOND SHIFT SUPERVISOR Lab Order: CBC with Diff; SPEC'M 06/19/16 18:01 Test: WHITE BLOOD COUNT; Value: 12.0; Range: 4.0-10.0; Abnormal: Above high normal; Units: K/mm3; Status: F Test: RED BLOOD COUNT; Value: 5.11; Range: 4.00-5.40; Units: M/mm3; Status: F Test: HEMOGLOBIN; Value: 16.1; Range: 12.0-16.0; Abnormal: Above high normal; Units: g/dl; Status: F Test: HEMATOCRIT; Value: 46.4; Range: 36.0-47.0; Units: %; Status: F Test: MEAN CORPUSCULAR VOLUME; Value: 90.7; Range: 80.0-96.0; Units: fl; Status: F Test: MEAN CORPUSCULAR HEMOGLOBIN; Value: 31.6; Range: 27.0-33.0; Units: pg; Status: F Test: MEAN CORPUSCULAR HGB CONC; Value: 34.8; Range: 32.0-36.5; Units: g/dl; Status: F Test: RED CELL DISTRIBUTION WIDTH; Value: 12.2; Range: 11.5-14.5; Units: %; Status: F Test: PLATELET COUNT, AUTOMATED; Value: 286; Range: 150-450; Units: k/mm3; Status: F Test: NEUTROPHILS %; Value: 92.5; Range: 36.0-66.0; Abnormal: Above high normal; Units: %; Status: F Test: LYMPH %; Value: 3.9; Range: 24.0-44.0; Abnormal: Below low normal; Units: %; Status: F Test: MONO %; Value: 1.9; Range: 0.0-5.0; Units: %; Status: F Test: EOS %; Value: 0.8; Range: 0.0-3.0; Units: %; Status: F Test: BASO %; Value: 0.1; Range: 0.0-1.0; Units: %; Status: F Test: LARGE UNSTAINED CELL %; Value: 0.8; Range: 0.0-4.0; Units: %; Status: F Test: NEUTROPHILS #; Value: 11.1; Range: 1.8-7.7; Abnormal: Above high normal; Units: K/mm3; Status: F Test: LYMPH #; Value: 0.5; Range: 1.5-4.5; Abnormal: Below low normal; Units: K/mm3; Status: F Test: MONO #; Value: 0.2; Range: 0.0-0.8; Units: K/mm3; Status: F Test: EOS #; Value: 0.1; Range: 0.0-0.50; Units: K/mm3; Status: F Test: BASO #; Value: 0.0; Range: 0.0-0.2; Units: K/mm3; Status: F Test: LARGE UNSTAINED CELL #; Value: 0.1; Range: 0.0-0.4; Units: K/mm3; Status: F Lab Order: Lipase; [facility]' 06/19/16 18:01 Test: LIPASE; Value: 109; Range: 73-393; Units: U/L; Status: F Lab Order: Liver Profile; [facility] 06/19/16 18:01 Test: AST/SGOT; Value: 21; Range: 15-37; Units: U/L; Status: F Test: ALT/SGPT; Value: 48; Range: 12-78; Units: U/L; Status: F Test: ALKALINE PHOSPHATASE; Value: 67; Range: 45-117; Units: U/L; Status: F Test: BILIRUBIN,TOTAL; Value: 1.5; Range: 0.2-1.0; Abnormal: Above high normal; Units: MG/DL; Status: F Test: BILIRUBIN,DIRECT; Value: 0.2; Range: 0.0-0.2; Units: MG/DL; Status: F Test: TOTAL PROTEIN; Value: 7.7; Range: 6.4-8.2; Units: GM/DL; Status: F Test: ALBUMIN; Value: 3.9; Range: 3.2-5.2; Units: GM/DL; Status: F Test: ALBUMIN/GLOBULIN RATIO; Value: 1.03; Range: 1.00-1.93; Status: F Lab Order: Urinalysis; SPEC'M 06/19/16 19:08 Test: APPEARANCE, URINE; Value: HAZY; Range: CLEAR; Status: F Test: COLOR, URINE; Value: YELLOW; Range: YELLOW; Status: F Test: PH,URINE; Value: 5.0; Range: 5.0-9.0; Units: UNITS; Status: F Test: SPECIFIC GRAVITY URINE AUTO; Value: 1.023; Range: 1.002-1.035; Status: F Test: PROTEIN, URINE AUTO; Value: NEGATIVE; Range: NEGATIVE; Units: mg/dL; Status: F Test: GLUCOSE, URINE (UA) AUTO; Value: NEGATIVE; Range: NEGATIVE; Units: mg/dL; Status: F Test: KETONE, URINE AUTO; Value: TRACE; Range: NEGATIVE; Abnormal: Above high normal; Units: mg/dL; Status: F Test: UROBILINOGEN, URINE AUTO; Value: 2.0; Range: 0.0-2.0; Abnormal: Above high normal; Units: mg/dL; Status: F Test: BILIRUBIN, URINE AUTO; Value: NEGATIVE; Range: NEGATIVE; Status: F Test: NITRITE, URINE AUTO; Value: NEGATIVE; Range: NEGATIVE; Status: F Test: LEUKOCYTE ESTERASE, URINE AUTO; Value: NEGATIVE; Range: NEGATIVE; Status: F Test: BLOOD, URINE BLOOD; Value: NEGATIVE; Range: NEGATIVE; Status: F Test: WBC, URINE AUTO; Value: 1; Range: 0-3; Units: /HPF; Status: F Test: RBC, URINE AUTO; Value: 0; Range: 0-3; Units: /HPF; Status: F Test: BACTERIA, URINE AUTO; Value: NEGATIVE; Range: NEGATIVE; Status: F Test: SQUAMOUS EPITHELIAL CELL UR AU; Value: 1; Range: 0-6; Units: /HPF; Status: F Test: MUCUS, URINE; Value: SMALL; Range: NEGATIVE; Status: F Test: HYALINE CAST, URINE AUTO; Value: 0; Range: 0-1; Units: /LPF; Status: F Lab Order: Urine Culture; SPEC'M 06/19/16 19:08 Test: URINE CULTURE; Value: <EXTERNAL COMMENT eCWMed> FULL REPORT IN LAB NOTES (eCW and Medent).; Status: F Test: URINE CULTURE; Value: URINE CULTURE RESULT NO GROWTH; Status: F Lab Order: CRP; SPEC'M 06/19/16 18:01 Test: C REACTIVE PROTEIN QUANTITATIV; Value: 3.76; Range: 0.00-0.30; Abnormal: Above high normal; Units: MG/DL; Status: F Lab Order: -Influenza A&B Rapid Antigen - Nose; SPEC'M 06/19/16 18:01 Test: INFLUENZA A RAPID SCR by ICA; Value: INFLUENZA A RESULTS NEGATIVE; Status: F Test: INFLUENZA A RAPID SCR by ICA; Value: Comments:; Status: F Test: INFLUENZA B RAPID SCR by ICA; Value: INFLUENZA B RESULTS NEGATIVE; Status: F Test Note: ; The Influenza test is a direct rapid immunoassay for the qualitative detection of Influenza viral antigen. Cell culture (Viral Culture) testing should be considered to confirm NEGATIVE results and to assist in detecting other viruses that can provide similar clinical symptoms. Please contact the lab within 24 hours ([phone]) if confirmatory testing is desired. Radiology Order: CT ABD & PELVIS: IV and Oral Contrast Test: CT ABD & PELVIS: IV and Oral Contrast REASON FOR EXAMINATION: PERIUMBILICAL PAIN; ; CLINICAL HISTORY: Periumbilical pain; TECHNIQUE : A CT of the abdomen and pelvis was performed following the administration of oral and int; ravenous contrast from the level of the heart to the proximal femoral diaphyses. Multiplanar reformat; s were also obtained in coronal and sagittal projections.; COMPARISON: None; FINDINGS:; LOWER CHEST: The lung bases are clear. Heart is normal in size. No pleural or pericardial effusion is; seen.; LIVER: The liver is normal in size and contour. No hepatic lesion is seen. The portal and hepatic vei; ns are patent.; BILIARY SYSTEM: No intrahepatic biliary ductal dilatation is seen. The common duct is normal in calib; er. The gallbladder is unremarkable with no focal or diffuse wall thickening seen. No pericholecystic; fluid is seen. No calcified biliary calculi are identified.; PANCREAS: The pancreas is normal in size, contour and density. No solid or cystic pancreatic mass is; seen. No pancreatic duct dilatation is seen.; SPLEEN: The spleen is normal in size and without focal lesion.; ADRENALS: The adrenal glands are unremarkable.; KIDNEYS/URETERS: The kidneys are normal in size and enhance normally. No calcified renal or ureteral; calculi are seen. No suspicious renal mass or hydronephrosis is seen. The ureters are not dilated.; URINARY BLADDER: The urinary bladder is unremarkable without calcified stone, wall thickening or dive; rticula seen.; UTERUS/ADNEXA: Uterus is absent. Bilateral adnexa. Within normal limits with corpus luteal cyst on le; ft; AORTA AND ILIAC ARTERIES: No aneurysmal dilatation of the aorta or iliac arteries is seen.; INFERIOR VENA CAVA AND PELVIC VEINS: No deep venous thrombosis is seen.; LYMPH NODES: No enlarged adenopathy.; GASTROINTESTINAL: Stomach, duodenum , and bowel normal in caliber.; PERITONEUM/RETROPERITONEUM: No ascites or suspicious fluid collection, extraluminal air, or suspiciou; s mass.; ABDOMINAL/PELVIC WALL: No hernia is identified.; OSSEOUS STRUCTURES/SOFT TISSUES: No suspicious osseous lesion, acute fracture, or soft tissue abnorma; lity.; IMPRESSION :; No acute intra-abdominal pelvic abnormality; ; Radiology Order: Chest, 2 View (pa\E\lat) Test: Chest, 2 View (pa\E\lat) REASON FOR EXAMINATION: FEVER;Cough; TWO VIEW CHEST:; ; COMPARISON: 01/11/2004; ; There is no evidence of acute infiltrate.; ; No pleural effusion is seen.; ; The heart is normal in size.; ; The mediastinal silhouette is unremarkable.; ; The visualized osseous structures are intact.; ; IMPRESSION:; ; No acute pulmonary disease.; ; ; Signed by; Arnol Ames MD 06/19/2016 07:42 P; Outcome: 22:28 Discharge ordered by Provider. mo1 22:58 Discharge Assessment: Patient awake, alert and oriented x 3. No cognitive and/or mb9 functional deficits noted. Patient verbalized understanding of disposition instructions. patient administered narcotics - no. The following High Risk Discharge criteria are identified: None. Discharged to home ambulatory. Condition: good Condition: stable Condition: improved. Discharge instructions given to patient, Instructed on discharge instructions, follow up and referral plans. medication usage, Demonstrated understanding of instructions, medications, Pt was receptive of discharge instructions/ teaching. No special radiology studies were completed. Property :Personal belongings accompany Pt. 23:00 Patient left the ED. mb9 Signatures: Dispatcher MedHost EDMS Yao Nevarez,RN RN Adelaida Benson, Reg Reg gb GerryYoanna JoeRN RN ck1 Modesta HaasRN RN jo3 Precious Mcdonough Gainslee gr2 Gabino Blake PA PA mo1 Nikki Slaughter PAEvaristoC PA-C dt4 Gabino MarquisRN RN mb9 Beverly ChauRN RN john3 Keyla Kaba2 Liliana Landers, [employer] CLINICIAN bnb Chart Complete TAMIRD
--- NOTE | 2016-06-22 00:01 | EDDOCDS ---
Physician Documentation [facility] Name: Modesta Carson Age: 36 yrs Sex: Female : 1980 Arrival Date: 06/19/2016 Time: 16:59 Bed I1 / M1 Private MD: RACH Phillips Disposition: 06/19/16 22:28 Discharged to Home/Self Care. Impression: Right lower quadrant abdominal tenderness, Diarrhea, unspecified, Acute upper respiratory infection, unspecified. - Condition is Stable. - Discharge Instructions: Abdominal Pain, Adult, Upper Respiratory Infection, Adult. - Prescriptions for ZOFRAN ODT 4 mg - dissolve 1 tablet by ORAL route 4 times per day As needed do not chew, do not swallow whole; 10 tablet. - Medication Reconciliation, Local Pharmacy Hours form. - Follow up: RACH Phillips; When: Call to arrange an appointment; Reason: Recheck today's complaints, Continuance of care. - Problem is new. - Symptoms are unchanged. Historical: - Allergies: No known drug Allergies; - Home Meds: 1. Lexapro 20 mg Oral tab 1 tab once daily 2. Vitamin D 5000mg Oral daily 3. Linzess 145 mcg oral cap 1 cap once daily 4. Fish Oil 1,000 mg Oral cap daily - PMHx: IBS; Depression; Anxiety; - PSHx: Hysterectomy (2013); - Family history: Not pertinent. [employer]: 06/19 17:12 LMP N/A - Hysterectomy jo3 Vital Signs: 17:01 BP 135 / 82; Pulse 123; Resp 18 S; Temp 100.2(O); Pulse Ox 97% on R/A; Weight 90.72 kg gr2 / 200 lbs (R); Height 5 ft. 8 in. (172.72 cm) (R); Pain 4/10; 18:58 BP 123 / 69 LA Supine (auto/lg); Pulse 88; Resp 20; Temp 99.5; Pulse Ox 97% on R/A; bnb Pain 0/10; 22:58 BP 156 / 79; Pulse 74; Resp 17; Temp 98(O); Pulse Ox 99% ; mb9 17:01 Body Mass Index 30.41 (90.72 kg, 172.72 cm) gr2 MDM: 17:33 NS 0.9% 1000 ml IV at bolus once ordered. dt4 17:33 ketorolac 30 mg IVP once ordered. dt4 17:33 IV Saline Lock ordered. dt4 17:33 Undress patient appropriately for examination ordered. dt4 17:33 Obtain sample by nasopharyngeal swab ordered. dt4 17:33 Acetaminophen Tablet 975 mg PO once ordered. dt4 17:33 Tigan 200 mg IM once ordered. dt4 17:34 Amylase Ordered. EDMS 17:34 Basic Metabolic Profile Ordered. EDMS 17:34 CBC with Diff Ordered. EDMS 17:34 Lipase Ordered. EDMS 17:34 Liver Profile Ordered. EDMS 17:34 Urinalysis Ordered. EDMS 17:34 CRP Ordered. EDMS 17:34 Urine Culture Ordered. EDMS 17:34 -Influenza A&B Rapid Antigen - Nose Ordered. EDMS 17:35 Chest, 2 View (pa\E\lat) Ordered. EDMS 17:35 CT ABD & PELVIS: IV and Oral Contrast Ordered. EDMS 17:35 NOTHING BY MOUTH+DIET ordered. EDMS 17:56 Financial registration complete. zo 17:56 [facility] Payment Agreement was scanned into [employer] and attached to record. zo 18:19 CBC with Diff Reviewed. mo1 18:31 -Influenza A&B Rapid Antigen - Nose Reviewed. mo1 18:51 Diatrizoate Meglumine & Sodium Liquid 10 ml PO once; mix in 290cc of water ordered. kc3 18:51 Diatrizoate Meglumine & Sodium Liquid 10 ml PO once; mix in 290cc of water - given at kc3 1910 ordered. 19:10 CRP Reviewed. mo1 19:11 Liver Profile Reviewed. mo1 19:11 Basic Metabolic Profile Reviewed. mo1 19:11 Amylase Reviewed. mo1 19:11 Lipase Reviewed. mo1 19:25 Chest, 2 View (pa\E\lat) Reviewed. mo1 19:25 Urinalysis Reviewed. mo1 22:42 Chest, 2 View (pa\E\lat) Reviewed. mo1 22:42 CT ABD & PELVIS: IV and Oral Contrast Reviewed. mo1 22:50 Ondansetron 4 mg IVP once ordered. mo1 06/20 10:06 T-Sheet-- Draft Copy was scanned into [employer] and attached to record. gb 10:06 Radiology Report was scanned into [employer] and attached to record. gb Administered Medications: 06/19 18:22 Drug: Tigan 200 mg [Tigan 100 mg/mL intramuscular solution (2 mL)] Route: IM; Site: kc3 right gluteus; 18:23 Drug: NS 0.9% 1000 ml [sodium chloride 0.9 % intravenous solution] Route: IV; Rate: kc3 bolus; Site: right antecubital; 18:23 Drug: ketorolac 30 mg [ketorolac 30 mg/mL (1 mL) injection solution (1 mL)] Route: IVP; kc3 Site: right antecubital; 18:23 Drug: Acetaminophen 975 mg [acetaminophen 325 mg tablet (3 tabs)] Route: PO; kc3 18:51 Drug: Diatrizoate Meglumine & Sodium 10 ml [diatrizoate meglumine and diat.sodium 66 kc3 %-10 % oral solution (10 mL)] Route: PO; 19:19 Drug: Diatrizoate Meglumine & Sodium 10 ml [diatrizoate meglumine and diat.sodium 66 mb9 %-10 % oral solution (10 mL)] Route: PO; 22:58 Drug: Ondansetron 4 mg [ondansetron HCl 2 mg/mL intravenous solution (2 mL)] Route: mb9 IVP; Site: right forearm; Signatures: Dispatcher [employer] EDYao Campbell,RN Adelaida Purdy, Modesta Bee RN RN jo3 Olin, Zoeann zo O'Hagan, Michael, PA PA mo1 Tschudi, Diane, PA-Mat PA-Gabino Quarles RN RN mb9 Beverly Chau RN RN kc3 The chart was reviewed and I authenticate all verbal orders and agree with the evaluation and treatment provided.Corrections: (The following items were deleted from the chart) 17:44 17:33 UCG by Nursing ordered. dixie conway Attachments: 17:56 [facility] Payment Agreement zo 06/20 10:06 T-Sheet-- Draft Copy gb Chart Complete MTDD
== END 2016-06-19 23:00 | disposition home or self-care (01) ==
LOC: M ED 16:59
DX: K52.9 Noninfective gastroenteritis and colitis, unspecified (principal); E86.0 Dehydration; J06.9 Acute upper respiratory infection, unspecified; K58.9 Irritable bowel syndrome, unspecified; F33.9 Major depressive disorder, recurrent, unspecified; F41.9 Anxiety disorder, unspecified; Z79.899 Other long term (current) drug therapy
CPT/HCPCS: 36415; 71020; 74177; 80048; 80076; 81001; 82150; 83690; 85025; 86140; 87086; 87804; 96372; 96374; 96375; 99284; J1885; J2405; J3250; Q9963; Q9967

== ENCOUNTER 2016-08-25 23:52 | Emergency (ER) | payer OTHER ==
[~2016-08-25] VITALS: Ht 172.7 cm; Wt 90.7 kg
[2016-08-25 23:56] VITALS: BP 157/91
[2016-08-26] MEDS ORDERED: LEXA1TAB2 PO (00:04)
[2016-08-26] MEDS ORDERED: BUSP10TA PO (00:04)
[2016-08-26] MEDS ORDERED: VITA400C29 PO (00:04)
[2016-08-26] MEDS ORDERED: ZANA2CAP PO (00:04)
== END 2016-08-26 01:26 | disposition left against medical advice (07) ==
LOC: M ED 08-26 01:08
DX: R20.9 Unspecified disturbances of skin sensation (principal); Z53.21 Procedure and treatment not carried out due to patient leaving prior to being seen by health care provider

== ENCOUNTER 2016-08-28 13:44 | Emergency (ER) | payer OTHER ==
[~2016-08-28] VITALS: Ht 172.7 cm; Wt 90.7 kg
[2016-08-28] MEDS ORDERED: NS 1,000 ML IV ONE (15:45)
[2016-08-28] MEDS ORDERED: GASTROGRAFIN SOLUTION 30ML (Q9963) PO ONE ×2 (16:00)
[2016-08-28 16:33] LABS: BASO # 0.1 K/mm3 (0.0-0.2); EOS # 0.2 K/mm3 (0.0-0.50); EOS % 3.1 % (0.0-3.0); LARGE UNSTAINED CELL # 0.2 K/mm3 (0.0-0.4); LARGE UNSTAINED CELL % 2.3 % (0.0-4.0); LYMPH # 2.7 K/mm3 (1.5-4.5); LYMPH % 37.8 % (24.0-44.0); MEAN CORPUSCULAR HEMOGLOBIN 31.7 pg (27.0-33.0); MEAN CORPUSCULAR HGB CONC 34.6 g/dl (32.0-36.5); MEAN CORPUSCULAR VOLUME 91.5 fl (80.0-96.0); MONO # 0.4 K/mm3 (0.0-0.8); MONO % 5.6 % (0.0-5.0); NEUTROPHILS # 3.4 K/mm3 (1.8-7.7); NEUTROPHILS % 50.3 % (36.0-66.0); PLATELET COUNT, AUTOMATED 284 k/mm3 (150-450); RED CELL DISTRIBUTION WIDTH 12.6 % (11.5-14.5); WHITE BLOOD COUNT 6.7 K/mm3 (4.0-10.0)
[2016-08-28 17:01] LABS: ALBUMIN/GLOBULIN RATIO 1.33 (1.00-1.93); ALKALINE PHOSPHATASE 55 U/L (45-117); ALT/SGPT 41 U/L (12-78); ANION GAP 7 MEQ/L (8-16); AST/SGOT 19 U/L (15-37); BILIRUBIN,DIRECT 0.2 MG/DL (0.0-0.2); BILIRUBIN,TOTAL 0.7 MG/DL (0.2-1.0); BLOOD UREA NITROGEN 15 MG/DL (7-18); CALCIUM LEVEL 8.3 MG/DL (8.5-10.1); CARBON DIOXIDE LEVEL 28 MEQ/L (21-32); CHLORIDE LEVEL 104 MEQ/L (98-107); CREATININE FOR GFR 0.84 MG/DL (0.55-1.02); GLOMERULAR FILTRATION RATE > 60.0 (>60); GLUCOSE, FASTING 125 MG/DL (70-105); POTASSIUM SERUM 3.9 MEQ/L (3.5-5.1); SODIUM LEVEL 139 MEQ/L (136-145)
[2016-08-28] MEDS ORDERED: ISOVUE-370 76% 100ML VIAL (Q9967) As Ordered ONE (17:23)
[2016-08-28 17:37] LABS: INR 0.89
[2016-08-28] MEDS ORDERED: MORPHINE 4 MG/ML 1ML SYRINGE IV ONE (18:30)
[2016-08-28 19:07] VITALS: BP 114/77
--- NOTE | 2016-08-28 19:49 | REP ---
CT ABDOMEN PELVIS WITH IV AND ORAL CONTRAST: 08/28/2016: Clinical history: Right upper and right lower quadrant pain, diarrhea, rectal bleed. Comparison: 06/19/2016, CT with contrast. Technique: Bolus of 100 mL as Isovue-370 with oral Gastrografin mixture 10 mL in 290 mL flavored water for two doses per our bowel contrast protocol. Coronal and sagittal reconstructions after scanning through the abdomen pelvis performed. CT abdomen: Some minor dependent atelectatic changes posteriorly in the lower lung zones. No effusion, infiltrate or mass. Heart not enlarged. There is no hiatal hernia. No pericardial effusion or thickening. There is no hepatosplenomegaly, focal hepatic or splenic mass nor intrahepatic biliary dilatation. Gallbladder without calcified stone or mass. Pancreas and adrenal glands are normal. Kidneys show lobation without mass, cyst, stone or hydronephrosis. Ureters show normal course to the bladder without stone or dilatation. No aortic aneurysm. No periaortic or retroperitoneal pathologic adenopathy noted. The colon and small bowel loops are not dilated. The small bowel loops are not dilated. No inflammatory changes about colon or small bowel on the study today. Contrast reaches the distal ileum but not the terminal ileum or cecum. There are no inflammatory changes adjacent to the cecum that would suggest appendicitis. No abscess or ascites. Lung window review of all CT abdomen pelvis slices shows no perforation or free air. Bone windows show lumbar and lower thoracic spine without acute compression deformity or destructive lesion. There is no spondylolysis or spondylolisthesis. Visualized ribs were intact. CT pelvis: Sacrum, SI joints, iliac bones and hips are without acute finding. Bladder without wall thickening, mass or stone. The distal ureters are without dilatation or stone. Distal left colon was intact. There is a trace amount of free fluid in the pelvis which may be physiologic. Uterus absent. Vaginal cuff intact. No adnexal mass. Tubal clamps are noted in both sides of the pelvis. There is no ventral or inguinal hernia nor pathologic sized inguinal adenopathy. Distal small bowel loops or contrast or fluid-filled without acute inflammatory changes. Impression: 1. Status post hysterectomy and a trace amount of free fluid in the deep pelvis anterior to the rectum. This may be physiologic. I do not see adnexal mass or cyst. No free air. 2. No colitis, diverticulitis, stricture, mass or pericecal inflammatory change. 3. No adenopathy and the colon shows stool and gas scattered throughout without obstruction or acute finding. 4. Solid organs in the upper abdomen were unremarkable. Bones are intact. Lung bases clear. Signed by Jigar Temple MD 08/29/2016 02:50 P
== END 2016-08-28 19:15 | disposition home or self-care (01) ==
LOC: M ED 15:58
DX: K92.2 Gastrointestinal hemorrhage, unspecified (principal); K21.9 Gastro-esophageal reflux disease without esophagitis; K58.9 Irritable bowel syndrome, unspecified; F32.9 Major depressive disorder, single episode, unspecified; F41.9 Anxiety disorder, unspecified; M54.5 Low back pain; Z79.899 Other long term (current) drug therapy; M50.222 Other cervical disc displacement at C5-C6 level; M50.223 Other cervical disc displacement at C6-C7 level
CPT/HCPCS: 72125; 74177; 80048; 80076; 81001; 83690; 85025; 85610; 85730; 86850; 86900; 86901; 87086; 87507; 96374; 99283; Q9963; Q9967

== ENCOUNTER → 2016-08-28 | Outpatient (CLI) | payer OTHER ==
[~2016-08-28] MED LIST changes: +BUSP10TA PO; +LEXA1TAB2 PO; +VITA400C29 PO; +ZANA2CAP PO
--- NOTE | 2016-08-28 09:12 | REP ---
CT STUDY OF THE CERVICAL SPINE WITHOUT CONTRAST: HISTORY: Acute onset back and neck pain left shoulder pain and left hand numbness. Decreased sensation in the left C8 distribution. No comparison MR. No comparison plain radiographs available. TECHNIQUE: Helical scanning is acquired. 2 mm axial high resolution images are reformatted. Coronal and sagittal multiplanar re-formation images are generated and reviewed. CT FINDINGS: There is reversal of the normal cervical lordosis and slight straightening. Cervical vertebral body heights are preserved. Alignment is normal. There is mild disc space narrowing at the C5-6 disc level. Mild posterior osteophytic ridging is seen with mild bilateral neural foraminal narrowing left more so than right. There is no evidence of disc protrusion at C5-6. Canal size appears to be adequate. There is also mild uncovertebral spurring on the right less prominent. At C6-7, there is minimal disc space narrowing as well. Central disc bulging is seen at C6-7. No neural foraminal narrowing is seen. There is a small accessory ossicle at the superior articular facet of C7 on the left. This does not appear acute. No other significant radiographic abnormality is seen. No extra spinal abnormality is observed. No bony destructive lesion is seen. IMPRESSION: Degenerative disc changes C5-6 and C6-7. Left-sided neural foraminal narrowing at C5-6. There is a small old accessory ossicle at the left superior articular facet of C7. Signed by Ludin Barrientos MD 08/28/2016 10:43 A
== END ==
LOC: M RAD 07:15
PROVIDERS: ATTEND Physician Assistant
DX: M50.222 Other cervical disc displacement at C5-C6 level (principal); M50.223 Other cervical disc displacement at C6-C7 level

== ENCOUNTER 2016-09-03 14:09 | Emergency (ER) | payer OTHER ==
[~2016-09-03] VITALS: Ht 172.7 cm; Wt 90.7 kg
[2016-09-03 14:09] VITALS: BP 139/80
[2016-09-03] MEDS ORDERED: FISH100049 PO (14:16)
[2016-09-03] MEDS ORDERED: METHOCARBAMOL 500 MG TAB PO ONE (15:30)
[2016-09-03] MEDS ORDERED: IBUPROFEN 600 MG TAB PO ONE (15:30)
[2016-09-03] MEDS ORDERED: ROBA500T PO (15:31)
[2016-09-03] MEDS ORDERED: NORCOTAB PO (15:31)
== END 2016-09-03 15:50 | disposition home or self-care (01) ==
LOC: M ED 15:15
DX: M54.12 Radiculopathy, cervical region (principal); M54.5 Low back pain; M50.90 Cervical disc disorder, unspecified, unspecified cervical region; F33.9 Major depressive disorder, recurrent, unspecified; K58.9 Irritable bowel syndrome, unspecified; Q07.00 Arnold-Chiari syndrome without spina bifida or hydrocephalus; Z79.899 Other long term (current) drug therapy; Z87.891 Personal history of nicotine dependence

== ENCOUNTER 2016-10-05 13:56 | Emergency (ER) | payer OTHER ==
[~2016-10-05] VITALS: Ht 172.7 cm; Wt 86.2 kg
[2016-10-05 13:56] VITALS: BP 141/85
[~2016-10-05 13:56] MED LIST changes: +FISH100049 PO; +NORCOTAB PO; +ROBA500T PO
[2016-10-05] MEDS ORDERED: AMBI10TA PO (14:10)
[2016-10-05] MEDS ORDERED: NORCO, ANEXSIA 5/325MG TABLET (HYDROcodone/ACETAMINOPHEN) PO ONE (14:30)
[2016-10-05] MEDS ORDERED: IBUPROFEN 600 MG TAB PO ONE (14:30)
[2016-10-05] MEDS ORDERED: METHOCARBAMOL 500 MG TAB PO ONE (14:30)
[2016-10-05] MEDS ORDERED: ROBA500T PO (14:32)
[2016-10-05] MEDS ORDERED: NORCOTAB PO (14:32)
== END 2016-10-05 14:48 | disposition home or self-care (01) ==
LOC: M ED 14:42
DX: S39.012A Strain of muscle, fascia and tendon of lower back, initial encounter (principal); M54.16 Radiculopathy, lumbar region; M54.41 Lumbago with sciatica, right side; X58.XXXA Exposure to other specified factors, initial encounter; Y92.019 Unspecified place in single-family (private) house as the place of occurrence of the external cause; Y93.89 Activity, other specified; Y99.8 Other external cause status; Q07.00 Arnold-Chiari syndrome without spina bifida or hydrocephalus; K58.9 Irritable bowel syndrome, unspecified; G40.909 Epilepsy, unspecified, not intractable, without status epilepticus; Z90.79 Acquired absence of other genital organ(s); Z79.899 Other long term (current) drug therapy; Z85.41 Personal history of malignant neoplasm of cervix uteri

== ENCOUNTER 2016-10-08 22:17 | Emergency (ER) | payer OTHER ==
[~2016-10-08] VITALS: Ht 172.7 cm; Wt 90.7 kg
[2016-10-08 22:17] VITALS: BP 152/75
[~2016-10-08 22:17] MED LIST changes: +AMBI10TA PO
[2016-10-09] MEDS ORDERED: MAGN400T PO (16:24)
[2016-10-09] MEDS ORDERED: ESCI10TA2 PO (16:24)
[2016-10-09] MEDS ORDERED: ZOLP5TAB PO (16:24)
[2016-10-09] MEDS ORDERED: VITMTA PO (16:24)
[2016-10-09] MEDS ORDERED: TOPI50TA4 PO (16:24)
[2016-10-09] MEDS ORDERED: VITA500046 PO (16:24)
[2016-10-09] MEDS ORDERED: VITATAB11 PO (16:24)
== END 2016-10-09 01:36 | disposition left against medical advice (07) ==
LOC: M ED 23:38
DX: M54.9 Dorsalgia, unspecified (principal); Z53.21 Procedure and treatment not carried out due to patient leaving prior to being seen by health care provider

== ENCOUNTER 2016-10-09 11:50 | Inpatient (IN) | payer OTHER ==
[~2016-10-09] VITALS: Ht 172.7 cm; Wt 99.5 kg
[2016-10-09] MEDS ORDERED: NS 1,000 ML IV SCH (12:41)
[2016-10-09] MEDS ORDERED: MORPHINE 4 MG/ML 1ML SYRINGE IV ONE ×2 (12:45→15:00)
[2016-10-09 13:21] LABS: BASO # 0.1 K/mm3 (0.0-0.2); BASO % 0.8 % (0.0-1.0); EOS # 0.3 K/mm3 (0.0-0.50); EOS % 3.8 % (0.0-3.0); LARGE UNSTAINED CELL # 0.2 K/mm3 (0.0-0.4); LARGE UNSTAINED CELL % 2.1 % (0.0-4.0); LYMPH # 2.9 K/mm3 (1.5-4.5); LYMPH % 34.7 % (24.0-44.0); MEAN CORPUSCULAR HEMOGLOBIN 32.3 pg (27.0-33.0); MEAN CORPUSCULAR HGB CONC 34.6 g/dl (32.0-36.5); MEAN CORPUSCULAR VOLUME 93.4 fl (80.0-96.0); MONO # 0.4 K/mm3 (0.0-0.8); MONO % 5.1 % (0.0-5.0); NEUTROPHILS # 4.2 K/mm3 (1.8-7.7); NEUTROPHILS % 53.6 % (36.0-66.0); PLATELET COUNT, AUTOMATED 275 k/mm3 (150-450); RED CELL DISTRIBUTION WIDTH 12.7 % (11.5-14.5); WHITE BLOOD COUNT 7.8 K/mm3 (4.0-10.0)
[2016-10-09 13:27] LABS: ANION GAP 6 MEQ/L (8-16); BLOOD UREA NITROGEN 12 MG/DL (7-18); CALCIUM LEVEL 9.1 MG/DL (8.5-10.1); CARBON DIOXIDE LEVEL 26 MEQ/L (21-32); CHLORIDE LEVEL 107 MEQ/L (98-107); GLOMERULAR FILTRATION RATE > 60.0 (>60); GLUCOSE, FASTING 96 MG/DL (70-105); POTASSIUM SERUM 4.1 MEQ/L (3.5-5.1); SODIUM LEVEL 139 MEQ/L (136-145)
--- NOTE | 2016-10-09 15:11 | REP ---
MRI lumbar spine without contrast: History: Low back pain right lower extremity radicular pain. Numbness. Comparison study September 13, 2016. Technique: Sagittal and axial T1 and T2-weighted scans are acquired in the usual fashion with and without fat saturation. Sequences include spin echo, turbo spin-echo, and STIR imaging sequences. MRI findings: Incidental note is made of somewhat prominent common bile duct in the head of the pancreas measuring up to 8 mm in diameter. Recent CT study of the abdomen shows a 5-6 mm common bile duct caliber. There is straightening of the normal lumbar lordosis as before. Cortical and medullary bone signal intensity are normal. Lumbar vertebral body heights are preserved. Conus medullaris remains normal in position and appearance at L1. Axial and sagittal images at the L1-2 level show no significant abnormality. At L2-3, there is no evidence of disc herniation, central canal stenosis or neural foraminal narrowing. At L3-4, there is minimal disc bulging. No central canal stenosis or neural foraminal lesion is seen. At L4-5, there is broad-based disc bulge with small central annulus tear. Mild central canal stenosis is seen at L4-5. The midline sagittal AP dimension of the thecal sac at the 4-5 level is 7 mm. Pedicles are developmentally somewhat short. Facets are unremarkable. No neural foraminal compromise. No significant change from the comparison MR study of September 13, 2016. At L5-S1, there is a left central focal disc protrusion again noted, unchanged in size or appearance. This contacts the ventral margin of the thecal sac, but does not appear to compress it. There is minimal left-sided neural foraminal compromise due to facet hypertrophy, which is slightly more prominent on the left than the right at L5-S1. No central canal stenosis is seen. Impression: Diffuse disc bulging at L4-5 and left central disc protrusion at L5-S1, unchanged from the recent prior study of September 13, 2016. Left-sided neural foraminal narrowing at L5-S1, unchanged. Incidental note is made of a somewhat prominent common bile duct measuring up to 8 mm in transverse dimension. Recent CT study showed normal 6 mm dimension. Uncertain significance. Signed by Ludin Barrientos MD 10/09/2016 03:50 P
[2016-10-09] MEDS ORDERED: MAGN400T PO (16:24)
[2016-10-09] MEDS ORDERED: TOPI50TA4 PO (16:24)
[2016-10-09] MEDS ORDERED: VITA500046 PO (16:24)
[2016-10-09] MEDS ORDERED: VITATAB11 PO (16:24)
[2016-10-09] MEDS ORDERED: ESCI10TA2 PO (16:24)
[2016-10-09] MEDS ORDERED: ZOLP5TAB PO (16:24)
[2016-10-09] MEDS ORDERED: VITMTA PO (16:24)
[2016-10-09] MEDS ORDERED: ONDANSETRON 4MG/2ML VIAL (J2405) IV PRN (16:45)
[2016-10-09] MEDS ORDERED: ACETAMINOPHEN TAB 650MG DOSE (2X325MG) PO PRN (16:45)
[2016-10-09] MEDS: PERCOCET 5MG/325MG TAB PO PRN (17:38)
[2016-10-09 18:00] VITALS: BP 146/82
[2016-10-09 20:00] VITALS: BP 119/58
[2016-10-09] MEDS: SENOKOT S TAB PO SCH (20:56)
[2016-10-09] MEDS: busPIRone 10 MG TAB PO SCH (20:56)
[2016-10-09] MEDS: TOPIRAMATE (TopAMAX) 25 MG TAB PO SCH (20:56)
[2016-10-09] MEDS: MAGNESIUM OXIDE 400 MG TAB (MAG-OX) PO SCH (20:57)
[2016-10-09] MEDS: tiZANidine 4 MG TAB PO SCH (20:57)
[2016-10-09] MEDS: LIDOCAINE 5% OINT 30 GM TOP SCH (20:58)
--- NOTE | 2016-10-09 21:28 | HPE ---
DATE OF ADMISSION: 10/09/2016 PRIMARY CARE PROVIDER: Junior Russell CHIEF COMPLAINT: Lower back pain and unable to ambulate. HISTORY OF PRESENT ILLNESS: This is a 36-year-old female patient with underlying medical history of irritable bowel syndrome, gastroesophageal reflux disease (GERD), chronic back pain, which has been present since 2005, has been seen by multiple specialists. As per patient, on Friday, the patient acutely developed 10/10 lower back pain. As per patient, was shocking and worsening with bending over and movement with no significant relieving factors, unable to ambulate. Was seen in the emergency room and sent home with Percocet. Was seen on Friday with an episode of bowel incontinence. Denies any urinary incontinence and any further episodes of bowel incontinence. The patient reported also numbing sensation in the lateral aspect of the right lower thigh and also reported pain radiating down her right lower extremity. Denies any chest pain, pressure, discomfort. Denies any abdominal pain. Able to move bilateral lower extremities. Denies any fevers or chills. Denies any history of trauma to her back. ALLERGIES: No known drug allergies. PAST MEDICAL HISTORY: 1. Gastroesophageal reflux disease (GERD). 2. Irritable bowel syndrome. 3. Chronic back pain. PAST SURGICAL HISTORY: Hysterectomy. SOCIAL HISTORY: The patient works in [employer] on [address]. Denies smoking. Drinks one to two glasses of wine per week. Denies any illicit drug use. REVIEW OF SYSTEMS: Reported bilateral lower back pain, one episode of bowel incontinence. All other review of systems are negative. HOME MEDICATIONS: - vitamin B one tablet by mouth daily - buspirone 10 mg by mouth at night - vitamin D 5000 units by mouth daily - Lexapro 10 mg by mouth daily - fish oil one capsule by mouth daily - 290 mcg capsule by mouth daily - magnesium oxide 400 mg by mouth twice a day - multivitamin one tablet by mouth daily - Zanaflex 2 mg by mouth at night - topiramate 50 mg by mouth at night - Ambien 5 mg by mouth at night as needed PHYSICAL EXAMINATION: VITAL SIGNS: Temperature 97.9, pulse 65, respirations 20, blood pressure 146/82, pulse oximetry 97% on room air. GENERAL: The patient is alert and oriented times three, in no acute distress. Obese. PULMONARY: Bilaterally clear to auscultation. BACK: Lumbar, L4-L5, point tenderness. No deformities. CARDIAC: Regular rate and rhythm. Normal S1, S2. ABDOMEN: Soft and nontender and nondistended. EXTREMITIES: No edema in bilateral lower extremities. Straight leg test positive for right lower extremities. Able to move bilateral upper and lower extremities. Strength is symmetrical and intact. Sensation in bilateral upper and lower extremities is symmetrical and intact to light touch. Rectal tone intact. LABORATORY DATA: WBC 7.8, hemoglobin and hematocrit 14/40.6, platelets 275. Chemistry: Sodium 139, potassium 4.1, chloride 107, bicarbonate 26, BUN 12, creatinine 0.9. MRI of the lumbar spine showed diffuse disc bulging at L4-5, left central disc protrusion L5-S1, unchanged from previous examination from 09/13/2016. Left sided neural foraminal narrowing L5-S1, unchanged. Incidental note is made of somewhat prominent common bile duct measuring 8 mm in transverse dimension. ASSESSMENT AND PLAN: This is a 36-year-old female patient with underlying medical history of irritable bowel syndrome, gastroesophageal reflux disease (GERD), chronic lower back pain that presented with intractable lower back pain and unable to ambulate. 1. Intractable lower back pain, unable to ambulate with degenerative disc disease. MRI appreciated with no focal change. Consulted neurosurgery. Followup bladder volume and neuro checks. Pain medicine consulted. Pain medication as ordered. Bowel regimen as ordered. Physical therapy (PT). Neurosurgery consulted. 2. Depression. Continue current medications. 3. Obesity complicating care. 4. Deep vein thrombosis (DVT) prophylaxis. Lovenox subcutaneously. DISPOSITION PLANNING: Pending clinical improvement, neurosurgery consultation, pain management consultation and physical therapy (PT).
[2016-10-09] MEDS: zolPIDEM TARTRATE 5 MG TAB PO PRN (21:50)
[2016-10-09] MEDS: MORPHINE 2 MG/ML 1ML SYRINGE IV PRN (21:51)
[2016-10-10] VITALS: BP 114/59
[2016-10-10] MEDS: PERCOCET 5MG/325MG TAB PO PRN ×4 (07:12→20:25)
[2016-10-10 07:37] LABS: MEAN CORPUSCULAR HEMOGLOBIN 32.7 pg (27.0-33.0); MEAN CORPUSCULAR HGB CONC 35.2 g/dl (32.0-36.5); MEAN CORPUSCULAR VOLUME 93.1 fl (80.0-96.0); RED CELL DISTRIBUTION WIDTH 12.6 % (11.5-14.5); WHITE BLOOD COUNT 7.8 K/mm3 (4.0-10.0)
[2016-10-10 07:55] LABS: ANION GAP 7 MEQ/L (8-16); BLOOD UREA NITROGEN 11 MG/DL (7-18); CALCIUM LEVEL 7.8 MG/DL (8.5-10.1); CARBON DIOXIDE LEVEL 26 MEQ/L (21-32); CHLORIDE LEVEL 108 MEQ/L (98-107); CREATININE FOR GFR 0.89 MG/DL (0.55-1.02); GLOMERULAR FILTRATION RATE > 60.0 (>60); GLUCOSE, FASTING 93 MG/DL (70-105); POTASSIUM SERUM 4.2 MEQ/L (3.5-5.1); SODIUM LEVEL 141 MEQ/L (136-145)
[2016-10-10 08:00] VITALS: BP 131/86
[2016-10-10] MEDS: MORPHINE 2 MG/ML 1ML SYRINGE IV PRN ×5 (09:22→21:44)
[2016-10-10] MEDS: ENOXAPARIN 30 MG/0.3 ML SYR (J1650) SC SCH (09:23)
[2016-10-10] MEDS: OMEGA-3 1050MG CAPSULE PO SCH (09:23)
[2016-10-10] MEDS: VITAMIN D 1,000 INTERNATIONAL UNITS TABLET PO SCH (09:23)
[2016-10-10] MEDS: MULTIVITAMINS/MINERALS THERAP 1 TAB PO SCH (09:23)
[2016-10-10] MEDS: MAGNESIUM OXIDE 400 MG TAB (MAG-OX) PO SCH ×2 (09:23→20:24)
[2016-10-10] MEDS: VITAMIN B COMPLEX/VIT C CAP PO SCH (09:23)
[2016-10-10] MEDS: ESCITALOPRAM OXALATE 10 MG TAB (LEXAPRO) PO SCH (09:24)
[2016-10-10] MEDS: LIDOCAINE 5% OINT 30 GM TOP SCH ×2 (09:25→20:25)
--- NOTE | 2016-10-10 10:43 | IPN ---
DATE: 10/10/2016 36-year-old female, seen at bedside, resting comfortably. She feels that her back pain is a more better controlled today. She is having no issues with bladder or bowel incontinence and is having regular bowel movements, and no saddle paresthesias noted. OBJECTIVE: Temperature is 98.4, pulse 68, respiratory rate 16, blood pressure (BP) 131/86, SpO2 is 98% on room air. General: The patient appears to be in no acute distress. She is pleasant. HEENT: Unremarkable. Lungs: Clear. Heart: Regular rate and rhythm. Abdomen: Soft. Extremities: No edema. No calf tenderness. No motor or sensory deficits noted. LABORATORIES: White count 7.8, hemoglobin 13.4, platelets 247,000. Sodium 141 , chloride 108, bicarbonate 26, anion gap 7, BUN is 11, creatinine 0.89, glucose is 93. ASSESSMENT AND PLAN: 1. Intractable lower back pain, difficulty with ambulating, with degenerative disc disease. MRI did not show any focal change. Neurosurgery consult is pending at this time. Will continue with bladder volume checks as well as neuro checks. Pain medicine consult is in place as well. Bowel regimen ordered. Physical therapy (PT) evaluation and treatment as well is pending. 2. Depression. Continue with current medications. 3. Obesity. Can complicate medical care. 4. Gastroesophageal reflux disease (GERD) is stable. 5. Irritable bowel syndrome. No current issues. 6. Deep venous thrombosis (DVT) prophylaxis with Lovenox. DISPOSITION: We will see how she does with physical therapy. Anticipate further evaluations by pain management and neurosurgery. MARKUS
[2016-10-10] MEDS: SENOKOT S TAB PO SCH ×2 (11:15→20:23)
[2016-10-10] MEDS ORDERED: LIDOCAINE 1% SDV 5 ML VIAL As Ordered ONE (13:40)
[2016-10-10] MEDS ORDERED: LIDOCAINE 1% SDV 5 ML VIAL SC ONE (13:45)
--- NOTE | 2016-10-10 15:23 | REP ---
CERVICAL SPINE, SEVEN VIEW: HISTORY: Spondylosis. There is no acute fracture or subluxation. The C5-6 intervertebral disc is decreased in height consistent with disc degeneration. There is narrowing of the C5 neural foramina secondary to uncinate process hypertrophy. IMPRESSION: Degenerative change as described above. Signed by Jimbo Callahan MD 10/10/2016 03:36 P
--- NOTE | 2016-10-10 15:25 | REP ---
LUMBAR SPINE, SIX VIEWS: HISTORY: Spondylosis. COMPARISON: 08/23/2014 There is no acute fracture. The L4-5 and L5-S1 intervertebral discs are decreased in height consistent with disc degeneration. Osteophytes are present on L4 and L5. The facet joints are normal in appearance. There are 3 mm of retrolisthesis of L5 on S1. There is loss of the normal lordotic curve. IMPRESSION: Degenerative change as described above. Signed by Jimbo Callahan MD 10/10/2016 03:37 P
--- NOTE | 2016-10-10 15:26 | REP ---
Clinical: Right upper quadrant pain. Technique: Real time montilla scale ultrasound examination using curved array transducer. Findings: Liver demonstrates fatty infiltration without focal hepatic lesion. The pancreas is incompletely evaluated due to interposed bowel gas, but visualized portions appear normal. Gallbladder demonstrates small amount of layering sludge without wall thickening or pericholecystic fluid, but a sonographic Nieves's sign was elicited. No biliary ductal dilatation is appreciated and the common bile duct measures 6 mm diameter. Right kidney is normal in reniform shape without hydronephrosis and measures 12.5 x 5.6 x 4.0 cm. No ascites. Impression: 1. Layering sludge in the gallbladder with positive sonographic Nieves's sign is nonspecific and requires correlation. No associated biliary ductal dilatation. 2. Hepatosteatosis Signed by Channing Juarez MD 10/10/2016 03:17 P
[2016-10-10 16:00] VITALS: BP 138/87
[2016-10-10 20:00] VITALS: BP 127/79
[2016-10-10] MEDS: tiZANidine 4 MG TAB PO SCH (20:23)
[2016-10-10] MEDS: TOPIRAMATE (TopAMAX) 25 MG TAB PO SCH (20:23)
[2016-10-10] MEDS: busPIRone 10 MG TAB PO SCH (20:25)
[2016-10-10] MEDS: zolPIDEM TARTRATE 5 MG TAB PO PRN (21:43)
[2016-10-11] VITALS: BP 107/54
[2016-10-11] MEDS: MORPHINE 2 MG/ML 1ML SYRINGE IV PRN ×2 (01:03→07:31)
[2016-10-11] MEDS: PERCOCET 5MG/325MG TAB PO PRN ×3 (03:37→13:38)
[2016-10-11 06:48] LABS: MEAN CORPUSCULAR HEMOGLOBIN 32.3 pg (27.0-33.0); MEAN CORPUSCULAR HGB CONC 34.8 g/dl (32.0-36.5); MEAN CORPUSCULAR VOLUME 92.8 fl (80.0-96.0); RED CELL DISTRIBUTION WIDTH 12.5 % (11.5-14.5); WHITE BLOOD COUNT 6.8 K/mm3 (4.0-10.0)
[2016-10-11 07:05] LABS: ANION GAP 9 MEQ/L (8-16); BLOOD UREA NITROGEN 18 MG/DL (7-18); CALCIUM LEVEL 8.3 MG/DL (8.5-10.1); CARBON DIOXIDE LEVEL 25 MEQ/L (21-32); CHLORIDE LEVEL 108 MEQ/L (98-107); CREATININE FOR GFR 1.07 MG/DL (0.55-1.02); GLOMERULAR FILTRATION RATE > 60.0 (>60); GLUCOSE, FASTING 110 MG/DL (70-105); POTASSIUM SERUM 3.8 MEQ/L (3.5-5.1); SODIUM LEVEL 142 MEQ/L (136-145)
[2016-10-11 08:00] VITALS: BP 143/67
[2016-10-11] MEDS: LIDOCAINE 5% OINT 30 GM TOP SCH (09:00)
--- NOTE | 2016-10-11 09:09 | REP ---
MRI CERVICAL SPINE WITHOUT CONTRAST: FINDINGS: A disc bulge is present at the C5-6 level. There is minimal effacement of the thecal sac without spinal cord compression. The C5 neural foramina are patent. A disc bulge with associated osteophyte formation is present at the C6-7 level. There is minimal effacement of the thecal without spinal cord compression. Uncinate process hypertrophy is present on the left. This produces mild narrowing of the left C6 neural foramen. The left C6 neural foramen is patent. There is no other disc bulge or herniation. The remaining neural foramina are patent. The spinal cord is normal in signal intensity. Normal signal intensity is present in the cervical vertebral bodies. IMPRESSION: There is cervical spondylosis at the C5-6 and C6-7 levels without spinal cord compression. The findings at the C6-7 level are new. Signed by Jimbo Callahan MD 10/11/2016 09:18 A
--- NOTE | 2016-10-11 09:39 | REP ---
MR BRAIN WITHOUT CONTRAST: HISTORY: Elaina-Danlos Syndrome. There are no areas of abnormal signal intensity in the brain. There is no intraparenchymal hemorrhage, infarct, mass or midline shift. The ventricular system is normal in appearance. There is no extracerebral collection. The cerebellar tonsils extend 5 mm inferior through the foramen magnum consistent with cerebellar tonsillar ectopia. There is no syrinx in the visualized cervical spinal cord. The sinuses are clear. IMPRESSION: Cerebellar tonsillar ectopia. ? Signed by Jimbo Callahan MD 10/11/2016 09:43 A
[2016-10-11] MEDS: SENOKOT S TAB PO SCH (09:46)
[2016-10-11] MEDS: MULTIVITAMINS/MINERALS THERAP 1 TAB PO SCH (09:46)
[2016-10-11] MEDS: OMEGA-3 1050MG CAPSULE PO SCH (09:46)
[2016-10-11] MEDS: VITAMIN B COMPLEX/VIT C CAP PO SCH (09:46)
[2016-10-11] MEDS: MAGNESIUM OXIDE 400 MG TAB (MAG-OX) PO SCH (09:46)
[2016-10-11] MEDS: ESCITALOPRAM OXALATE 10 MG TAB (LEXAPRO) PO SCH (09:46)
[2016-10-11] MEDS: ENOXAPARIN 30 MG/0.3 ML SYR (J1650) SC SCH (09:47)
[2016-10-11] MEDS: VITAMIN D 1,000 INTERNATIONAL UNITS TABLET PO SCH (09:47)
[2016-10-11] MEDS ORDERED: PERCOCET 5MG/325MG TAB PO PRN (14:30)
[2016-10-11] MEDS ORDERED: PERCOCET 5MG/325MG TAB PO ONE (14:45)
[2016-10-11] MEDS ORDERED: PERCOCET PO (15:18)
[2016-10-11] MEDS ORDERED: LIDO5OI TOP (15:18)
[2016-10-11 16:45] VITALS: BP 116/60
--- NOTE | 2016-10-11 17:34 | DSES ---
DATE OF ADMISSION: 10/09/2016 DATE OF DISCHARGE: 10/11/2016 PRIMARY CARE PROVIDER: [facility] CONSULTATIONS: Dr. Singh as well as Pain Management/Tanesha Flores. PROCEDURES: None. COMPLICATIONS: None. SPECIAL TESTS AND IMAGIN. Brain MRI. 2. Cervical spine MRI spondylosis of C5-6, C5-7 without spinal cord compression. The findings at C6-7 are new. 3. Cervical spine x-ray degenerative changes were described. 4. Lumbar spine x-ray degenerative changes described. 5. Gallbladder ultrasound layering of sludge in gallbladder with positive sonographic Nieves sign, nonspecific and required correlation. No associated biliary duct dilation. 6. Lumbar spine MRI diffuse disc bulge of L4-5 and left central disc protrusion of L5-S1 unchanged from recent prior studies on 09/13/2016. Left sided neural foraminal narrowing of L5-S1, unchanged. Incidental note made of somewhat prominent common bile duct measuring 8 mm in transverse dimension. Recent CT scan showed a normal from 6 mm dimension with uncertain significance. COMPLICATIONS: None. ADMISSION/DISCHARGE DIAGNOSES: 1. Acute on chronic low back pain with intractable lower back pain now much improved with physical therapy, pain management and neurosurgery. 2. Depression. Stable. 3. Obesity, which can complicate medical care. 4. Abdominal pain with right upper quadrant pain and gallbladder sludge without any cholelithiasis or cholecystitis noted. 5. Gastroesophageal reflux disease (GERD), stable. 6. Irrigable bowel syndrome. BRIEF HOSPITAL COURSE: Ms. Carson is a 36-year-old female presented to the emergency department on 10/09/2016 with intractable back pain with known history of degenerative changes as well as recently being established with [facility] [place]. She was admitted for better pain control was given some morphine as well as Percocet as started on baclofen. MRI findings discussed above and Dr. Singh had seen the patient on evaluation as well. He was concerned that she may have some restless leg syndrome, possible sleep apnea which we need outpatient followup and can be scheduled through her primary care provider. Additional issues include Arnold Chiari malformation which she will need outpatient followup with Dr. Singh's office for. She did progress well did well with physical therapy on day of discharge was felt to be appropriate for discharge. She has not had any bladder or bowel and no saddle paresthesias. No motor or sensory deficits noted on exam. PHYSICAL EXAMINATION: VITALS: Temperature is 97.5, pulse 67, respiratory rate 18, BP 143/67, SPO2 is 95% on room air. GENERAL: The patient appears to be in no acute distress. She is alert and pleasant. HEENT: Unremarkable. LUNGS: Clear. HEART: Regular rhythm. ABDOMEN: Soft. EXTREMITIES: No edema and no calf tenderness. LABORATORY DATA: White count 6.8, hemoglobin 13.6, platelets 277. Sodium 142, potassium 3.8, chloride 108, bicarb 25, anion gap 8, BUN is 18, creatinine is 1.07, glucose 110, magnesium 2.0. DISCHARGE CONDITION: Good. DISPOSITION: Discharge to home. DISCHARGE MEDICATIONS: - Percocet 5/325 1-2 every 4-6 hours as needed, prescribed by pain management. - Flexor 10 mg three times a day a needed, prescribed by pain management. - vitamin B complex one daily - Buspirone 10 mg at night - vitamin D 5000 units daily - Lexapro 10 mg daily - fish oil 1 capsule daily - Linzess 290 mcg daily - mag oxide 4 mg twice a day - topiramate 50 mg at night - zolpidem 5 mg at night as needed for sleep - multivitamin 1 tablet daily - Zanaflex 2 mg at night DISCHARGE INSTRUCTIONS: Discharge to home. Activity as tolerated. Follow up with her primary care provider at [facility]. She was given some instructions on her dietary issues regarding gallbladder to avoid fatty fried foods. If her symptoms should become worse she may need to referral to general surgery but she does not demonstrate any signs of cholelithiasis or cholecystitis at this time. Keep followup with Dr. Singh, pain management as well as orthopedic followup which is scheduled for next week. She should seek medical attention if symptoms worsen or progress. She voices understanding. Discharge took 35 minutes.
--- NOTE | 2016-10-11 18:14 | CR.PDOC ---
[facility] Pain Clinic Consultation General Date of Consultation: 10/11/16 Consultation Report For: JADIEL CHACON DO Chief Complaint The patient is a 36-year-old female admitted with a reason for visit of Intractable Low Back Pain. Pain Management is asked to see for possible interventional therapy and other options for pain control. History of Present Illness Modesta Carson is a 36 year old white female admitted [facility] for intactible back pain on 10/09/16. She has experienced back pain for at least the last 10 years and has previously been offered surgical intervention. States that she has been to [facility] and has had interventional treatment several years ago which did help with her pain control. This most recent exacerbation of her back pain followed a daily walking and bending and pain has not returned to baseline. Was seen in the emergency room on 10/08/2016 and then returned on . She reports she did have an episode of bowel incontinence. States that she has been having increasing weakness, particularly in the right lower extremity, all which predated the increase in back pain. Notes sensory changes in the right leg from the hip to the foot. She is also noting pain at the right hip with radiation into the groin. Denies any recent falls or trauma. 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 Notes she is having some difficulty with urinary urgency. During her hospitalization she did have updated imaging done of the low back. She was also seen by Dr. Singh for neurosurgical evaluation. Following his evaluation. 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 Home Medications Scheduled B1/B2/B3/B5/B6 (Vitamin B Complex) 1 Tab Tab, 1 TAB PO DAILY, (Reported) Buspirone HCl (Buspirone HCl) 10 Mg Tab, 10 MG PO QHS, (Reported) Cholecalciferol (Vitamin D) 5,000 Unit Tab, 5,000 UNIT PO DAILY, (Reported) Escitalopram Oxalate (Escitalopram Oxalate) 10 Mg Tab, 10 MG PO DAILY, (Reported ) Fish Oil (Fish Oil 1000 mg) 1 Cap Cap, 1 CAP PO DAILY, (Reported) Linaclotide Base (Linzess) 290 Mcg Cap, 290 MCG PO DAILY, (Reported) Magnesium Oxide (Magnesium Oxide) 400 Mg Tab, 400 MG PO BID, (Reported) Multivitamins *[facility] STOCKED* (Thera M Plus *[facility] STOCKED*) 1 Tab Tab, 1 TAB PO DAILY, (Reported) Tizanidine Hydrochloride (Zanaflex) 2 Mg Cap, 2 MG PO QHS, (Reported) Topiramate (Topiramate) 50 Mg Tab, 50 MG PO QHS, (Reported) Scheduled PRN Zolpidem Tartrate (Zolpidem Tartrate) 5 Mg Tab, 5 MG PO QHS PRN for SLEEP, ( Reported) Allergies Coded Allergies: No Known Drug Allergy (Verified Allergy, Unknown, 08/21/12) Past Medical History Medical History Significant for GERD, irritable bowel syndrome. Denies coronary artery disease or cardiac murmurs. Denies asthma. Denies COPD. Denies migraines or seizures. Does note hyper flexible joints. Does note intermittent disc location of the right hip. Does have very high arches of both feet. Denies any skin rashes or irritation. Family History Family History Hyper flexible joints in several relatives. Otherwise noncontributory Social History Social History Denies tobacco use or any illicit substance use. Alcohol intake is 1-2 servings per week. Physical Examination Physical Examination Vital Signs/I&O Vital Signs Date Time Temp Pulse Resp B/P (MAP) Pulse Ox O2 Delivery O2 Flow Rate FiO2 10/11/16 16:45 97.2 60 16 116/60 (78) 100 Room Air I&O- Last 24 Hours up to 6 AM 10/11/16 06:00 Intake Total 1500 ml Output Total 2425 ml Balance -925 ml Recent Travel/Sick Contacts: Denies: Recent travel, Recent sick contacts General Exam: Positive: alert, attentive ENT EXAM: Positive: normocephalic Neck Exam: Positive: Full range of motion, Negative: Lymphadenopathy, Thyromegaly Chest Exam: Positive: Clear to auscultation, Negative: Wheezing, Rales Heart Exam: Positive: Regular rate and rhythm, Normal S1, S2, Negative: Murmurs, Rubs Abdominal Exam: Positive: Normal bowel sounds, Soft, Nondistended Extremity Exam: Positive: Other (high arches noted both feet.), Negative: Edema Skin Exam: Positive: Warm, Dry, Negative: Rashes, Lesions Neuro Exam: Positive: Other (decreased sensation noted over the anterior and lateral right thigh, calf and lateral aspect right foot. DTRs 1+ bilateral upper extremity 3+ right lower extremity 2+ left lower extremity) Psych Exam: Positive: Alert and oriented x 3 Inspection of spine Point tenderness with palpation over lumbar spinous processes and across the lumbosacral axis. Right side greater than left. Specific tenderness elicited with palpation over the right sacroiliac joint. Musculoskeletal Able to flex to 15 on able to extend spine to 5-10 only. Significant pain noted with rotation of spine to the right. Able to rise to a full upright position. Posture is upright. Gait is mildly antalgic with right leg limp noted. Pain is noted with Jigar's testing right side with pain radiating into the groin. Straight leg raise positive right side at 15. Laboratory Data CBC/BMP Laboratory Tests 10/11/16 06:31 Red Blood Count 4.20, Mean Corpuscular Volume 92.8, Mean Corpuscular Hemoglobin 32.3, Mean Corpuscular Hemoglobin Concent 34.8, Red Cell Distribution Width 12.5 , Calcium Level 8.3 L Diagnostic and Imaging Studies MRI lumbar spine completed on 10/09/2016. This demonstrates disc diffuse disc bulge at L4-5 and left central disc protrusion at L5-S1. There is left-sided neural foraminal narrowing at L5-S1. There is incidental note made of somewhat prominent common bile duct. At L4-5 there is a broad-based disc bulge with small central annulus tear. There is mild central canal stenosis seen at L4-5. There is straightening of the normal lumbar lordosis. Assessment 1. Lumbar disc displacement. 2. Lumbar radiculopathy. 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 I did discuss the option of the dural steroid block and she wishes to move forward with this. I did review with her the potential for infection, bleeding, increased pain or neuralgia, and potential for paralysis. She has had this type of intervention before and did find it helpful. I did also review her medications and I did speak with Dr. Jadiel Chacon. She has been on gabapentin in the past and did not like how it made her feel, but I have talked to her about the need for a neuroleptic pain medication and so would start her on gabapentin 300 mg twice a day. She has been on Flexeril in the past and this is also been helpful. We'll start her on Flexeril 10 mg every 8 hours. Finally, she does note the Percocet has been helpful to keep the pain under control. I will write scripts for this taken 1 every 4 hours as needed, maximum of 6 tablets per day for the next 5 days. We will plan to see her. In the clinic for a interlaminal lumbar epidural on October 15. I did discuss preprocedure requirements with the patient. I have called in her scripts to [facility]. She currently has an upcoming appointment at [facility] and she will keep that. We'll plan to see her in the office as noted above. We will follow her from there. Thank you [Laura], for allowing us to participate in the care of your patient, [Modesta Carson]. Should you have any questions we will be glad to discuss this with you at any time please contact us here at the pain center at [phone]. Nicolle Flores October 11, 2016 18:14
== END 2016-10-11 17:25 | disposition home or self-care (01) | DRG 551 ==
LOC: EDBD 11:50 → M ED 15:35 → M ED INP 16:45 → M PED 17:44
PROVIDERS: ADMIT Hospitalist; ATTEND Hospitalist
DX: M51.16 Intervertebral disc disorders with radiculopathy, lumbar region (principal); G93.5 Compression of brain; Q79.6 Ehlers-Danlos syndromes; M54.5 Low back pain; F32.9 Major depressive disorder, single episode, unspecified; E66.9 Obesity, unspecified; K21.9 Gastro-esophageal reflux disease without esophagitis; K58.9 Irritable bowel syndrome, unspecified; Z79.899 Other long term (current) drug therapy; Z90.710 Acquired absence of both cervix and uterus; Z68.33 Body mass index [BMI] 33.0-33.9, adult

== ENCOUNTER → 2016-10-15 | Outpatient (CLI) | payer OTHER ==
[~2016-10-15] MED LIST changes: +BUPIVACAINE HCL 0.25% 30 ML VIAL As Ordered ONE; +ESCI10TA2 PO; +ESCI20TA; +HYDR4TAB; +ISOVUE-M 300 61% 15ML VIAL (Q9967) As Ordered ONE; +LIDO5OI TOP; +LIDOCAINE 1% SDV INJ 30 ML VIAL As Ordered ONE; +MAGN400T PO; +MAGN400T2; +OMEP20CA3; +PREG50CA; +TIZANIDINE; +TOPI50TA4 PO; +TRIAMCINOLONE ACETONIDE SUSP 40 MG/ML VIAL (J3301) As Ordered ONE; +VITA500046 PO; +VITATAB11 PO; +VITMTA PO; +ZOLP5TAB PO
--- NOTE | 2016-10-16 17:48 | REP ---
FLUOROSCOPIC GUIDANCE: The images were reviewed with Dr. Ames. The patient has a history of low back pain. The portable C-ARM was provided in the OR by Dr. Smith for fluoroscopic guidance. 2 intraoperative fluoroscopic spot films were obtained for needle placement verification for right SI joint injection. The films are on the PACS system and are available for review. 15 seconds of fluoroscopic time was utilized for this procedure. Reviewed by DIONTE Mckeon 10/17/2016 12:36 PEdited and Signed by Arnol Ames MD 10/17/2016 07:22 P
--- NOTE | 2016-10-20 23:20 | ECWPNPC ---
PATIENT NAME: IMER FOOTE : 1980 GENDER: FEMALE VISIT DATE: 10/15/2016 DISCHARGE DATE: 10/15/16 1203 VISIT LOCKED DATE TIME: PHYSICIAN: CROW WILL RESOURCE: CROW WILL REASON FOR APPOINTMENT 1. INTERLAMINAL LE HISTORY OF PRESENT ILLNESS HISTORY OF PRESENT ILLNESS: PAIN THE PATIENT DESCRIBES THE PAIN... FALL RISK SCREENING: SCREENING :NO FALLS IN THE PAST YEAR CURRENT MEDICATIONS TAKING GABAPENTIN 300 MG CAPSULE 1 CAPSULE ORALLY BID TAKING CYCLOBENZAPRINE HCL 10 MG TABLET 1 TABLET NEEDED ORALLY THREE TIMES A DAY TAKING PERCOCET 10-325 MG TABLET 1 TABLET NEEDED ORALLY EVERY 4 HRS PRN PAIN MDD=6 TAKING LINZESS 290 MCG CAPSULE 1 CAPSULE ORALLY ONCE A DAY TAKING BUSPAR 10 MG 1 TABLET ORALLY DAILY TAKING LEXAPRO 10 MG TABLET 1 TABLET ORALLY ONCE A DAY TAKING ZANAFLEX 1 TABLET ORALLY EVERY BEDTIME TAKING AMBIEN 10 MG TABLET 1/2 TABLET AT BEDTIME NEEDED ORALLY TAKING MULTIVITAMIN 1 TABLET ORALLY DAILY TAKING VITAMIN B-12 1000 MCG TABLET 1 TABLET ORALLY ONCE A DAY DISCONTINUED LINZESS MEDICATION LIST REVIEWED AND RECONCILED WITH THE PATIENT ALLERGIES N.K.D.A. REVIEW OF SYSTEMS CONSTITUTIONAL: ANY CHANGE IN YOUR MEDICAL CONDITION? NO . CHILLS NO . FEVER NO . INFECTION: DO YOU HAVE NEW INFECTIONS? NO . DO YOU HAVE HISTORY OF MRSA? NO . MUSCULOSKELETAL: ANY NEW PATTERNS OF PAIN OR NUMBNESS? NO . GASTROENTEROLOGY: ANY NEW CHANGE IN BOWEL CONTROL? NO . GENITOURINARY: ANY NEW CHANGE IN BLADDER CONTROL? NO . IS THERE A CHANCE YOU COULD BE ? NO . HEMATOLOGY/LYMPH: DO YOU TAKE ANY BLOOD THINNERS? (FOR EXAMPLE- COUMADIN, PLAVIX, AGGRENOX, PLATEL, PRADAXA, OR XARELTO) NO . WHEN WAS YOUR LAST DOSE? DATE: TIME: . NEUROLOGY: HAVE YOU FALLEN IN THE PAST 6 MONTHS? NO . ANY NEW EXTREMITY NUMBNESS OR WEAKNESS? NO . CARDIOLOGY: DO YOU HAVE A PACEMAKER OR DEFIBRILLATOR? NO . RESPIRATORY: HAVE YOU BEEN SICK IN THE PAST WEEK? NO . FEVER NO . FLU LIKE SYMPTOMS? NO . COUGH NO . INTEGUMENTARY: DO YOU HAVE ANY RASHES OR OPEN SORES? NO . ALLERGIC/IMMUNO: ARE YOU ALLERGIC TO SHELLFISH OR IV DYE? NO . ANY NEW ALLERGIES? NO . PSYCHIATRIC: DO YOU HAVE THOUGHTS OF HURTING YOURSELF OR SOMEONE ELSE? NO . ARE YOU ABUSED, NEGLECTED, OR IN AN UNSAFE ENVIRONMENT? NO . ENDOCRINOLOGY: ARE YOU DIABETIC? NO . OTHER: DO YOU NEED ANY PRESCRIPTIONS? YES . IF YES, PLEASE LIST: PAIN MEDICATION . ANY NEW PROBLEMS WITH YOUR MEDICATIONS? NO . WHEN DID YOU LAST EAT? 2238 . WHEN DID YOU LAST DRINK? 0700 . WHAT DID YOU LAST DRINK? WATER . NAME OF PERSON DRIVING YOU HOME? LAURA JON . DO YOU HAVE ANY OTHER QUESTIONS OR CONCERNS NO . REVIEWED BY: PROVIDER: . VITAL SIGNS WT 200.0 LBS, HT 66", BMI 32.28 INDEX, BP 143/71 MM HG, HR 90 /MIN, RR 16 /MIN, TEMP 98.1 F, OXYGEN SAT % 96%, NA INITIALS TL 1012, REVIEWED BY: LS. ASSESSMENTS SACROILIITIS, NOT ELSEWHERE CLASSIFIED - M46.1 (PRIMARY) PROCEDURES PN SI PRE PROCEDURE DIAGNOSIS SACROILIITIS, SACROILIAC JOINT DYSFUNCTION POST PROCEDURE DIAGNOSIS SACROILIITIS, SACROILIAC JOINT DYSFUNCTION PROCEDURE RIGHT SACROILIAC JOINT BLOCK SURGEON DR. CROW WILL SITE INTERPRETER NONE ANESTHESIA LOCAL PRE PROCEDURE NOTE PATIENT WITH HISTORY OF CHRONIC LOW BACK PAIN. I EVALUATED THE PATIENT AND REVIEWED THE CHART. I WENT OVER THE RISKS, ALTERNATIVES, AND BENEFITS ASSOCIATED WITH THIS PROCEDURE. THE PATIENT WOULD LIKE TO PROCEED AND GAVE CONSENT TO PERFORM THE PROCEDURE. THE PATIENT DENIES UNEXPLAINABLE WEIGHT LOSS, FEVER, CHILLS, OR NEW CHANGES IN URINARY OR BOWEL CONTROL DESCRIPTION OF PROCEDURE THE PATIENT WAS BROUGHT TO THE PROCEDURE ROOM AND PLACED IN THE PRONE POSITION. THE LUMBOSACRAL AREA WAS CLEANED WITH CHLORAPREP SOLUTION AND DRAPED ASEPTICALLY. THE PROCEDURE WAS DONE UNDER STERILE CONDITIONS. I CHECKED LATERALITY AND THE LEVEL WHERE THE PROCEDURE WAS GOING TO BE PERFORMED WITH THE PATIENT AND THE SUPPORTING STAFF AT THE MOMENT OF THE TIME OUT IN THE PROCEDURE ROOM. UNDER FLUOROSCOPIC GUIDANCE, TARGET POINT WAS SELECTED AT THE LOWER BORDER OF THE RIGHT SACROILIAC JOINT. TARGET POINT WAS SELECTED AFTER MEDIAL ROTATION AND TILT OF THE MAGNIFIER OF THE C-ARM. LIDOCAINE WAS USED TO NUMB THE SKIN AND SUBCUTANEOUS TISSUE BELOW IT. A SPINAL NEEDLE, 22-GAUGE, WAS ADVANCED UNDER FLUOROSCOPIC GUIDANCE AND FOLLOWING PATIENT FEEDBACK UNTIL THE TARGET AREA WAS TOUCHED. THE POSITION OF THE NEEDLE WAS VERIFIED WITH AP AND LATERAL VIEWS. AFTER PROPER POSITION OF THE NEEDLE WAS ACHIEVED, ISOVUE M DYE 30%, 0.25 ML, WAS INJECTED SHOWING SPREAD OF THE DYE. THEN, A SOLUTION OF 20 MG OF KENALOG WAS INJECTED IN RIGHT JOINT WITH 3 ML OF BUPIVACAINE 0.125%. THERE WAS NO EVIDENCE OF BLOOD, PARESTHESIA OR CEREBROSPINAL FLUID DURING THE PROCEDURE. THE PATIENT WAS SENT TO THE RECOVERY ROOM. THE PATIENT WAS MOVING THE EXTREMITIES AND DOING WELL. THERE WAS NO COMPLICATION DURING THE PROCEDURE. FLUOROSCOPY TIME WAS 15 SECONDS POST PROCEDURE NOTE THE PATIENT WILL BE SEEN IN A FOLLOW UP IN THE NEXT FEW WEEKS. INSTRUCTIONS WERE GIVEN, QUESTIONS WERE ANSWERED, AND THE PATIENT EXPRESSED UNDERSTANDING AND AGREED WITH THE PLAN. I, DWIGHT SERRANO, DOCUMENTED THE ABOVE INFORMATION ACTING A SCRIBE FOR DR. WILL. I, DR. WILL, HAVE REVIEWED THE ABOVE DOCUMENT, SCRIBED BY DWIGHT SERRANO, AND I VERIFY THAT IT IS ACCURATE DIAGNOSTIC IMAGING [facility] FLUORO GUIDANCE (PAIN)[id number] PROCEDURE CODES 51010 INJECT SACROILIAC JOINT 6045F RADXPS IN END [id number] PXD DISPOSITION & COMMUNICATION FOLLOW UP 3 WEEKS ELECTRONICALLY SIGNED BY CROW WILL MD ON 10/20/2016 AT 05:35 PM EDT DISCLAIMER : THIS IS A VISIT SUMMARY EXTRACTED FROM THE [employer] CHART. IT IS NOT A COPY OF THE [employer] PROGRESS NOTE. MTDD
== END ==
LOC: M PAIN 09:50
PROVIDERS: ATTEND Anesthesiology
DX: G89.29 Other chronic pain (principal); M46.1 Sacroiliitis, not elsewhere classified; Z79.891 Long term (current) use of opiate analgesic; Z79.899 Other long term (current) drug therapy
CPT/HCPCS: G0260; J3301; Q9967

== ENCOUNTER → 2016-10-22 | Outpatient (CLI) | payer OTHER ==
[~2016-10-22] MED LIST changes: -BUPIVACAINE HCL 0.25% 30 ML VIAL As Ordered ONE; -ISOVUE-M 300 61% 15ML VIAL (Q9967) As Ordered ONE; -LIDOCAINE 1% SDV INJ 30 ML VIAL As Ordered ONE; -TRIAMCINOLONE ACETONIDE SUSP 40 MG/ML VIAL (J3301) As Ordered ONE
--- NOTE | 2016-10-24 23:39 | ECWPNPC ---
PATIENT NAME: IMER FOOTE : 1980 GENDER: FEMALE VISIT DATE: 10/22/2016 DISCHARGE DATE: 10/22/16 1222 VISIT LOCKED DATE TIME: PHYSICIAN: JACK ROYAL RESOURCE: JACK ROYAL REASON FOR APPOINTMENT 1. POST PROCEDURE HISTORY OF PRESENT ILLNESS HISTORY OF PRESENT ILLNESS: PAIN THE PATIENT DESCRIBES THE PAIN... FALL RISK SCREENING: SCREENING :NO FALLS IN THE PAST YEAR TODAY'S VISIT: NOTES: S/P RIGHT SIJ ON 10/15/16 DURING INPATIENT HOSPITAL STAY. . RATES PAIN TODAY 8-9/10. HAD NUMBNESS OVER THE INJECTION AREA BUT THEN PAIN RETURNED COMPLETELY. CAN NOT STAND OR WALK LEG MOVING INCREASES PAIN. NUMBNESS OVER LATERAL RIGHT FOOT. IS NOW STARTING TO HAVE PAIN IN LEFT SACRUM/HIP. HAS HAD MULTIPLE FALLS SINCE HOSPITAL STAY. HAS JUST STARTED ON LYRICA. HAS BEEN OVERTAKING HER PAIN MEDS AND IS NOT GETTING ANY RELIEF. DID SEE HER PCP MALLORY RING AT [facility], WHO TOLD HER AND HER THAT SHE DOES NOT BELIEVE THE PATIENT HAS YOKO DANLOS SYNDROME. IMER WANTS TO MOVE AHEAD WITH EPIDURAL INJECTION LEO.. CURRENT MEDICATIONS TAKING LINZESS 290 MCG CAPSULE 1 CAPSULE ORALLY ONCE A DAY TAKING BUSPAR 10 MG 1 TABLET ORALLY DAILY TAKING LEXAPRO 10 MG TABLET 1 TABLET ORALLY ONCE A DAY TAKING ZANAFLEX 1 TABLET ORALLY EVERY BEDTIME TAKING MULTIVITAMIN 1 TABLET ORALLY DAILY TAKING VITAMIN B-12 1000 MCG TABLET 1 TABLET ORALLY ONCE A DAY TAKING PERCOCET 10-325 MG TABLET 1 TABLET NEEDED ORALLY EVERY 4 HRS PRN PAIN MDD=6 TAKING MAGNESIUM 27 500 (27 MG) MG TABLET 1 TABLET ORALLY BID TAKING VITAMIN D 1000 UNIT TABLET 1 TABLET ORALLY ONCE A DAY TAKING LYRICA 50 MG CAPSULE 1 CAPSULE ORALLY THREE TIMES A DAY FOR 1 WEEK AND THEN TWICE A DAY NOT-TAKING GABAPENTIN 300 MG CAPSULE 1 CAPSULE ORALLY BID NOT-TAKING CYCLOBENZAPRINE HCL 10 MG TABLET 1 TABLET NEEDED ORALLY THREE TIMES A DAY NOT-TAKING AMBIEN 10 MG TABLET 1/2 TABLET AT BEDTIME NEEDED ORALLY MEDICATION LIST REVIEWED AND RECONCILED WITH THE PATIENT ALLERGIES N.K.D.A. REVIEW OF SYSTEMS CONSTITUTIONAL: ANY CHANGE IN YOUR MEDICAL CONDITION? NO . CHILLS NO . FEVER NO . INFECTION: DO YOU HAVE NEW INFECTIONS? NO . DO YOU HAVE HISTORY OF MRSA? NO . MUSCULOSKELETAL: ANY NEW PATTERNS OF PAIN OR NUMBNESS? NO . GASTROENTEROLOGY: ANY NEW CHANGE IN BOWEL CONTROL? NO . GENITOURINARY: ANY NEW CHANGE IN BLADDER CONTROL? YES, SOME URINARY INCONTINENCE, HAPPENENING ABOUT ONCE A DAY . IS THERE A CHANCE YOU COULD BE ? NO . HEMATOLOGY/LYMPH: DO YOU TAKE ANY BLOOD THINNERS? (FOR EXAMPLE- COUMADIN, PLAVIX, AGGRENOX, PLATEL, PRADAXA, OR XARELTO) NO . WHEN WAS YOUR LAST DOSE? DATE: TIME: . NEUROLOGY: HAVE YOU FALLEN IN THE PAST 6 MONTHS? YES . ANY NEW EXTREMITY NUMBNESS OR WEAKNESS? NO . CARDIOLOGY: DO YOU HAVE A PACEMAKER OR DEFIBRILLATOR? NO . RESPIRATORY: HAVE YOU BEEN SICK IN THE PAST WEEK? NO . FEVER NO . FLU LIKE SYMPTOMS? NO . COUGH NO . INTEGUMENTARY: DO YOU HAVE ANY RASHES OR OPEN SORES? NO . ALLERGIC/IMMUNO: ARE YOU ALLERGIC TO SHELLFISH OR IV DYE? NO . ANY NEW ALLERGIES? NO . PSYCHIATRIC: DO YOU HAVE THOUGHTS OF HURTING YOURSELF OR SOMEONE ELSE? NO . ARE YOU ABUSED, NEGLECTED, OR IN AN UNSAFE ENVIRONMENT? NO . ENDOCRINOLOGY: ARE YOU DIABETIC? NO . OTHER: DO YOU NEED ANY PRESCRIPTIONS? YES . IF YES, PLEASE LIST: &QUOT;STRONGER MEDS&QUOT; . ANY NEW PROBLEMS WITH YOUR MEDICATIONS? NO . WHEN DID YOU LAST EAT? ____ . WHEN DID YOU LAST DRINK? ____ . WHAT DID YOU LAST DRINK? ____ . NAME OF PERSON DRIVING YOU HOME? ____ . DO YOU HAVE ANY OTHER QUESTIONS OR CONCERNS NO . REVIEWED BY: PROVIDER: JACK ROYAL CALENDERING SUPERVISOR . VITAL SIGNS WT 200.0 LBS, HT 66", BMI 32.28 INDEX, BP 164/105 MM HG, HR 88 /MIN, RR 16 /MIN, TEMP 96.4 F, OXYGEN SAT % 96%, NA INITIALS TL 1056, REVIEWED BY: CSPATIENT'S BP IS ELEVATED, 164/105, PT STATES SHE IS IN ALOT OF PAIN, RN Bob AWARE- TL. EXAMINATION GENERAL EXAMINATION: GENERAL APPEARANCE:APPEARS VERY UNCOMFORTABLE. PSYCHALERT , ORIENTED X 3 , WEEPING, FRUSTRATED. LUNGS:CLEAR TO AUSCULTATION BILATERALLY. HEART:HEART RATE REGULAR, RAPID. MUSCULOSKELETAL:MUSCLE STRENGTH TESTING 5/5 BILATERAL UPPER EXTREMITIES AND LEFT LOWER EXTREMITY, 4+/5 RIGHT LOWER EXTREMITY DISTALLY AND PROXIMALLY. EXQUISITE TENDER NESS OVER LUMBAR SPINOUS PROCESSES AND PARTICULARLY AT THE RIGHT SACRUM. PAIN WITH SLR AT 10 DEGREES ON RIGHT. GAIT STIFF, SOME WEAKNESS WITH FLEXION RIGHT FOOT. . NEUROLOGIC EXAM:DTR'S 3+ BILATERAL LOWER EXTREMITY ON RIGHT - NO DEFICEIT ON LEFT. ASSESSMENTS SACROILIITIS, NOT ELSEWHERE CLASSIFIED - M46.1 (PRIMARY) LUMBAR DISC DISPLACEMENT WITHOUT MYELOPATHY - M51.26 LUMBAR RADICULOPATHY - M54.16 TREATMENT SACROILIITIS, NOT ELSEWHERE CLASSIFIED NOTES: NEED WRITTEN DOCULMENTATION FROM PRIMARY CARE THAT PATIENT DOES NOT HAVE YOKO DANLOS - WHEN OBTAINED CAN MOVE FORWARD WITH LUMBAR EPIDURAL. STOP OXYCODONE. START HTDROMORPHONE 4 MG 1 TAB EVERY 6 HRS NEEDED FOR PAIN MAX 4 PER DAY. CONTINUE LYRICAPATIENT DOESN'T WANT ANY TEACHING INFORMATION ABOUT THE HYDROMORPHONE. SHE ALSO STATES SHE HAS HAD EPIDURALS IN THE PAST AND DOESN'T WANT ANY TEACHING INFORMATION. PROCEDURE CODES FA211 ESTABILISHED PATIENT [facility] CHARGE DISPOSITION & COMMUNICATION FOLLOW UP AFTER INJECTION (REASON: CHECK AUTH FOR INTRALAMINAL EPIDURAL L4-5, L5-S1) ELECTRONICALLY SIGNED BY BENJY CUELLAR ON 10/24/2016 AT 02:03 PM EDT DISCLAIMER : THIS IS A VISIT SUMMARY EXTRACTED FROM THE [employer] CHART. IT IS NOT A COPY OF THE [employer] PROGRESS NOTE. MARKUS
== END ==
LOC: M PAIN 10:00
PROVIDERS: ATTEND Nurse Practitioner Family
DX: G89.29 Other chronic pain (principal); M46.1 Sacroiliitis, not elsewhere classified; M51.26 Other intervertebral disc displacement, lumbar region; M54.16 Radiculopathy, lumbar region; Z79.891 Long term (current) use of opiate analgesic; Z79.899 Other long term (current) drug therapy

== ENCOUNTER → 2016-10-25 | Outpatient (CLI) | payer OTHER ==
[~2016-10-25] MED LIST changes: +ISOVUE-M 300 61% 15ML VIAL (Q9967) As Ordered ONE; +LIDOCAINE 1% SDV INJ 30 ML VIAL As Ordered ONE; +NAPR500T PO; +SKEL-29 PO; +diazePAM 5 MG TAB As Ordered ONE; +methylPREDNISolone SUSP 40 MG/ML (DEPO-medrol) VIAL (J1030) As Ordered ONE; +oxyCODONE 5MG TAB As Ordered ONE
--- NOTE | 2016-10-25 10:42 | REP ---
Partial lumbar spine series: Single view. History: Lumbar epidural steroid injection for pain. 9 seconds of fluoroscopy time is reported. Findings: A single last image hold fluoroscopic spot radiograph of the lumbar spine documents needle position and contrast injection associated with lumbar epidural injection procedure. Signed by Ludin Barrientos MD 10/25/2016 01:19 P
--- NOTE | 2016-11-03 23:25 | ECWPNPC ---
PATIENT NAME: IMER FOOTE : 1980 GENDER: FEMALE VISIT DATE: 10/25/2016 DISCHARGE DATE: 10/25/16 1055 VISIT LOCKED DATE TIME: PHYSICIAN: CROW WILL RESOURCE: CROW WILL REASON FOR APPOINTMENT 1. LUMBAR INTRALAMINER EPI HISTORY OF PRESENT ILLNESS HISTORY OF PRESENT ILLNESS: PAIN THE PATIENT DESCRIBES THE PAIN... FALL RISK SCREENING: SCREENING :NO FALLS IN THE PAST YEAR CURRENT MEDICATIONS TAKING LINZESS 290 MCG CAPSULE 1 CAPSULE ORALLY ONCE A DAY, NOTES: 10/24/16699 TAKING BUSPAR 10 MG 1 TABLET ORALLY DAILY, NOTES: 10/24/161899 TAKING ZANAFLEX 4 MG TABLET 1 TABLET ORALLY EVERY BEDTIME, NOTES: 10/24/161899 TAKING LEXAPRO 10 MG TABLET 1 TABLET ORALLY ONCE A DAY, NOTES: 10/24/16699 TAKING MULTIVITAMIN 1 TABLET ORALLY DAILY, NOTES: 10/24/16699 TAKING VITAMIN B-12 1000 MCG TABLET 1 TABLET ORALLY ONCE A DAY, NOTES: 10/24/16699 TAKING MAGNESIUM 27 500 (27 MG) MG TABLET 1 TABLET ORALLY BID, NOTES: 10/24/161899 TAKING VITAMIN D 1000 UNIT TABLET 1 TABLET ORALLY ONCE A DAY, NOTES: 10/24/16699 TAKING LYRICA 50 MG CAPSULE 1 CAPSULE ORALLY THREE TIMES A DAY FOR 1 WEEK AND THEN TWICE A DAY, NOTES: 10/24/181899 TAKING HYDROMORPHONE HCL 4 MG TABLET 1 TABLET NEEDED ORALLY EVERY 6 HRS, NOTES: 10/24/161899 NOT-TAKING PERCOCET 10-325 MG TABLET 1 TABLET NEEDED ORALLY EVERY 4 HRS PRN PAIN MDD=6 NOT-TAKING GABAPENTIN 300 MG CAPSULE 1 CAPSULE ORALLY BID NOT-TAKING CYCLOBENZAPRINE HCL 10 MG TABLET 1 TABLET NEEDED ORALLY THREE TIMES A DAY NOT-TAKING AMBIEN 10 MG TABLET 1/2 TABLET AT BEDTIME NEEDED ORALLY MEDICATION LIST REVIEWED AND RECONCILED WITH THE PATIENT PAST MEDICAL HISTORY CHRONIC PAIN ANXIETY DEPRESSION ALLERGIES N.K.D.A. SOCIAL HISTORY GENERAL: TOBACCO USE ARE YOU A:NONSMOKER REVIEW OF SYSTEMS CONSTITUTIONAL: ANY CHANGE IN YOUR MEDICAL CONDITION? NO . CHILLS NO . FEVER NO . INFECTION: DO YOU HAVE NEW INFECTIONS? NO . DO YOU HAVE HISTORY OF MRSA? NO . MUSCULOSKELETAL: ANY NEW PATTERNS OF PAIN OR NUMBNESS? NO . GASTROENTEROLOGY: ANY NEW CHANGE IN BOWEL CONTROL? NO . GENITOURINARY: ANY NEW CHANGE IN BLADDER CONTROL? NO . IS THERE A CHANCE YOU COULD BE ? NO . HEMATOLOGY/LYMPH: DO YOU TAKE ANY BLOOD THINNERS? (FOR EXAMPLE- COUMADIN, PLAVIX, AGGRENOX, PLATEL, PRADAXA, OR XARELTO) NO . WHEN WAS YOUR LAST DOSE? DATE: TIME: . NEUROLOGY: HAVE YOU FALLEN IN THE PAST 6 MONTHS? NO . ANY NEW EXTREMITY NUMBNESS OR WEAKNESS? NO . CARDIOLOGY: DO YOU HAVE A PACEMAKER OR DEFIBRILLATOR? NO . RESPIRATORY: HAVE YOU BEEN SICK IN THE PAST WEEK? NO . FEVER NO . FLU LIKE SYMPTOMS? NO . COUGH NO . INTEGUMENTARY: DO YOU HAVE ANY RASHES OR OPEN SORES? NO . ALLERGIC/IMMUNO: ARE YOU ALLERGIC TO SHELLFISH OR IV DYE? NO . ANY NEW ALLERGIES? NO . PSYCHIATRIC: DO YOU HAVE THOUGHTS OF HURTING YOURSELF OR SOMEONE ELSE? NO . ARE YOU ABUSED, NEGLECTED, OR IN AN UNSAFE ENVIRONMENT? NO . ENDOCRINOLOGY: ARE YOU DIABETIC? NO . OTHER: DO YOU NEED ANY PRESCRIPTIONS? NO . IF YES, PLEASE LIST: ____ . ANY NEW PROBLEMS WITH YOUR MEDICATIONS? NO . WHEN DID YOU LAST EAT? 1500 . WHEN DID YOU LAST DRINK? BEFORE MIDNIGHT . WHAT DID YOU LAST DRINK? WATER . NAME OF PERSON DRIVING YOU HOME? LAURA JON . DO YOU HAVE ANY OTHER QUESTIONS OR CONCERNS NO . REVIEWED BY: PROVIDER: . VITAL SIGNS WT 200.0 LBS, HT 66", BMI 32.28 INDEX, BP 133/87 MM HG, HR 71 /MIN, RR 16 /MIN, TEMP 96.6 F, OXYGEN SAT % 97%, NA INITIALS TL 0906, REVIEWED BY: LS. ASSESSMENTS INTERVERTEBRAL DISC DISORDERS WITH RADICULOPATHY, LUMBOSACRAL REGION - M51.17 (PRIMARY) PROCEDURES PRE PROCEDURE DIAGNOSIS LUMBOSACRAL DISC DISORDER WITH RADICULOPATHY, LUMBOSACRAL RADICULOPATHY POST PROCEDURE DIAGNOSIS LUMBOSACRAL DISC DISORDER WITH RADICULOPATHY , LUMBOSACRAL RADICULOPATHY PROCEDURE L5-S1 LUMBAR EPIDURAL STEROID INJECTION UNDER FLUOROSCOPIC GUIDANCE SURGEON DR. CROW WILL PHOTOGRAMMETRIC TECH NONE ANESTHESIA LOCAL PRE PROCEDURE NOTE THE PATIENT HAS A HISTORY OF CHRONIC LOW BACK PAIN. I EVALUATE THE PATIENT AND REVIEWED THE CHART. I WENT OVER THE RISKS, ALTERNATIVES, AND BENEFITS ASSOCIATED WITH THIS PROCEDURE. THE PATIENT WOULD LIKE TO PROCEED AND GIVE CONSENT TO PERFORMED THE PROCEDURE. THE PATIENT DENIES UNEXPLAINABLE WEIGHT LOSS, FEVER, CHILLS, OR NEW CHANGES IN URINARY OR BOWEL CONTROL. DESCRIPTION OF PROCEDURE THE PATIENT WAS BROUGHT TO THE PROCEDURE ROOM AND PLACED IN THE PRONE POSITION. THE LUMBOSACRAL AREA WAS CLEANED WITH BETADINE SOLUTION AND DRAPED ASEPTICALLY. THE PROCEDURE WAS DONE UNDER STERILE CONDITIONS. I CHECKED LATERALITY AND THE LEVEL WHERE THE PROCEDURE WAS GOING TO BE PERFORMED WITH THE PATIENT AND THE SUPPORTING STAFF AT THE MOMENT OF THE TIME OUT IN THE PROCEDURE ROOM. UNDER FLUOROSCOPIC GUIDANCE, THE TARGET POINT WAS SELECTED AT THE INTERLAMINAR LEVEL OF L5-S1. LIDOCAINE WAS USED TO NUMB THE SKIN AND THE SUBCUTANEOUS TISSUE BELOW IT. EPIDURAL TUOHY NEEDLE, 17-GAUGE, WAS ADVANCED UNDER FLUOROSCOPIC GUIDANCE AND FOLLOWING PATIENT FEEDBACK UNTIL THE EPIDURAL SPACE WAS REACHED, 7 CM DEEP INTO THE SKIN BY THE LOSS OF RESISTANCE TECHNIQUE. ISOVUE M DYE 30%, 0.25 ML, WAS INJECTED SHOWING ADEQUATE SPREAD OF THE DYE. THEN, A SOLUTION OF 3 ML OF NORMAL SALINE WITH DEPO-MEDROL 60 MG WAS INJECTED SLOWLY FOLLOWING PATIENT FEEDBACK. THERE WAS NO EVIDENCE OF BLOOD, PARESTHESIA OR CEREBROSPINAL FLUID DURING THE PROCEDURE. THE PATIENT WAS SENT TO THE RECOVERY ROOM. THE PATIENT WAS MOVING THE EXTREMITIES AND DOING WELL. THERE WAS NO COMPLICATION DURING THE PROCEDURE. FLUOROSCOPY TIME WAS 9 SECONDS. POST PROCEDURE NOTE THE PATIENT WILL BE SEEN IN A FOLLOW UP IN THE NEXT FEW WEEKS. INSTRUCTIONS WERE GIVEN, QUESTIONS WERE ANSWERED, AND THE PATIENT EXPRESSED UNDERSTANDING AND AGREES WITH THE PLAN. I, MEGHNA PEDERSEN, DOCUMENTED THE ABOVE INFORMATION ACTING A SCRIBE FOR DR. WILL. I HAVE REVIEWED THE ABOVE DOCUMENT, WRITTEN BY MEGHNA PEDERSEN SCRIBE AND I VERIFY THAT IT IS ACCURATE DIAGNOSTIC IMAGING [facility] FLUORO GUIDE SPINE INJECTION (PAIN)[id number] PROCEDURE CODES 27749 LUMBAR/SACRAL W/ IMAGING 6045F RADXPS IN END [id number] PXD DISPOSITION & COMMUNICATION FOLLOW UP 3 WEEKS ELECTRONICALLY SIGNED BY CROW WILL MD ON 11/03/2016 AT 03:31 PM EDT DISCLAIMER : THIS IS A VISIT SUMMARY EXTRACTED FROM THE [employer] CHART. IT IS NOT A COPY OF THE [employer] PROGRESS NOTE. MTDD
== END ==
LOC: M PAIN 09:00
PROVIDERS: ATTEND Anesthesiology
DX: G89.29 Other chronic pain (principal); M51.17 Intervertebral disc disorders with radiculopathy, lumbosacral region; F41.9 Anxiety disorder, unspecified; F32.9 Major depressive disorder, single episode, unspecified; Z79.899 Other long term (current) drug therapy; Z79.891 Long term (current) use of opiate analgesic
CPT/HCPCS: 62323; J1030; Q9967

== ENCOUNTER 2016-11-04 17:59 | Emergency (ER) | payer OTHER ==
[~2016-11-04] VITALS: Ht 172.7 cm; Wt 95.5 kg
[~2016-11-04 17:59] MED LIST changes: -ESCI20TA; -HYDR4TAB; -ISOVUE-M 300 61% 15ML VIAL (Q9967) As Ordered ONE; -LIDO5OI TOP; +LIDO5OIN28 TOP; -LIDOCAINE 1% SDV INJ 30 ML VIAL As Ordered ONE; -MAGN400T2; -NAPR500T PO; -OMEP20CA3; -PREG50CA; -SKEL-29 PO; -TIZANIDINE; -TOPI50TA4 PO; +TOPI50TA9 PO; +VITA-110 PO; -VITA400C29 PO; -diazePAM 5 MG TAB As Ordered ONE; -methylPREDNISolone SUSP 40 MG/ML (DEPO-medrol) VIAL (J1030) As Ordered ONE; -oxyCODONE 5MG TAB As Ordered ONE
[2016-11-04] MEDS ORDERED: HYDR4TAB (18:14)
[2016-11-04] MEDS ORDERED: TIZANIDINE (18:14)
[2016-11-04] MEDS ORDERED: PREG50CA (18:14)
[2016-11-04] MEDS ORDERED: OMEP20CA3 (18:14)
[2016-11-04] MEDS ORDERED: MAGN400T2 (18:14)
[2016-11-04] MEDS ORDERED: ESCI20TA (18:14)
[2016-11-04] MEDS ORDERED: KETOROLAC 60 MG/2 ML VIAL (J1885) IM ONE (20:30)
--- NOTE | 2016-11-04 21:00 | REPUSA ---
CT of the cervical spine Clinical history: Pain. Technique: Multiple axial CT images were obtained through the cervical spine without administration o f contrast. Coronal and sagittal 3-D reconstructed images were also obtained. Comparison: None. Findings: The cervical vertebral bodies are in satisfactory positioning and alignment. No fractures or dislocat ions are demonstrated. The odontoid process is intact. Intervertebral disc spaces are well-maintained . There is no evidence of facet subluxation. The neural foramen appear grossly patent. The cervical c ranial junction is intact. The cervical spinal canal demonstrates normal caliber and contour without evidence of spinal stenosis. The surrounding soft tissues are within normal limits. Impression: Unremarkable CT examination of the cervical spine.
[2016-11-04] MEDS ORDERED: NAPR500T PO (21:07)
[2016-11-04] MEDS ORDERED: SKEL800T97 PO (21:07)
[2016-11-04 21:13] VITALS: BP 168/76
== END 2016-11-04 21:14 | disposition home or self-care (01) ==
LOC: M ED 19:07
DX: S16.1XXA Strain of muscle, fascia and tendon at neck level, initial encounter (principal); V43.52XA Car driver injured in collision with other type car in traffic accident, initial encounter; Y92.410 Unspecified street and highway as the place of occurrence of the external cause; M50.20 Other cervical disc displacement, unspecified cervical region; R56.9 Unspecified convulsions; N80.9 Endometriosis, unspecified; Z85.41 Personal history of malignant neoplasm of cervix uteri; Z79.899 Other long term (current) drug therapy
CPT/HCPCS: 72125; 96372; 99283; J1885; J3360

== ENCOUNTER → 2016-11-08 | Outpatient (CLI) | payer OTHER ==
[~2016-11-08] MED LIST changes: +ESCI20TA; +HYDR4TAB; +MAGN400T2; +NAPR500T PO; +OMEP20CA3; +PREG50CA; +SKEL800T97 PO; +TIZANIDINE
--- NOTE | 2016-11-27 01:07 | ECWPNPC ---
PATIENT NAME: IMER FOOTE : 1980 GENDER: FEMALE VISIT DATE: 11/08/2016 DISCHARGE DATE: 11/08/16 1002 VISIT LOCKED DATE TIME: PHYSICIAN: JACK ROYAL RESOURCE: JACK ROYAL REASON FOR APPOINTMENT 1. POST LESI HISTORY OF PRESENT ILLNESS HISTORY OF PRESENT ILLNESS: PAIN THE PATIENT DESCRIBES THE PAIN... FALL RISK SCREENING: SCREENING :NO FALLS IN THE PAST YEAR TODAY'S VISIT: NOTES: RATES PAIN TODAY 10. IS S/P LESB ON 10/25/16. REPORTS PAIN LEVEL PRIOR TO INJECTION WAS 8-9/10 AND POST INJECTION WAS 8-9/10. PAIN REMAINS CENTERED RIGHT SIDE LOW BACK/FLANK AREA WITH RADIATION TO RIGHT LEG TO LEVEL OF THE FOOT. REPORTS THAT SHE DID FALL [address] MEDELLIN AT [facility] 11/07/16. HE IS RECOMMENDING A DCS AND SHE WILL PURSUE THIS THROUGH THEM. IS NOTING THROBBING SHOOTING PAIN GOING ACROSS THE BACK.. CURRENT MEDICATIONS TAKING LINZESS 290 MCG CAPSULE 1 CAPSULE ORALLY ONCE A DAY TAKING BUSPAR 10 MG 1 TABLET ORALLY DAILY TAKING ZANAFLEX 4 MG TABLET 1 TABLET ORALLY EVERY BEDTIME TAKING LEXAPRO 10 MG TABLET 1 TABLET ORALLY ONCE A DAY TAKING MULTIVITAMIN 1 TABLET ORALLY DAILY TAKING VITAMIN B-12 1000 MCG TABLET 1 TABLET ORALLY ONCE A DAY TAKING MAGNESIUM 27 500 (27 MG) MG TABLET 1 TABLET ORALLY BID TAKING VITAMIN D 1000 UNIT TABLET 1 TABLET ORALLY ONCE A DAY TAKING LYRICA 50 MG CAPSULE 1 CAPSULE ORALLY BID TAKING HYDROMORPHONE HCL 4 MG TABLET 1 TABLET NEEDED ORALLY EVERY 6 HRS NOT-TAKING PERCOCET 10-325 MG TABLET 1 TABLET NEEDED ORALLY EVERY 4 HRS PRN PAIN MDD=6 NOT-TAKING GABAPENTIN 300 MG CAPSULE 1 CAPSULE ORALLY BID NOT-TAKING CYCLOBENZAPRINE HCL 10 MG TABLET 1 TABLET NEEDED ORALLY THREE TIMES A DAY NOT-TAKING AMBIEN 10 MG TABLET 1/2 TABLET AT BEDTIME NEEDED ORALLY MEDICATION LIST REVIEWED AND RECONCILED WITH THE PATIENT PAST MEDICAL HISTORY CHRONIC PAIN ANXIETY DEPRESSION REVIEW OF SYSTEMS REVIEWED BY: PROVIDER: JACK TEMPLE . CONSTITUTIONAL: ANY CHANGE IN YOUR MEDICAL CONDITION? NO . CHILLS NO . FEVER NO . INFECTION: DO YOU HAVE NEW INFECTIONS? NO . DO YOU HAVE HISTORY OF MRSA? NO . MUSCULOSKELETAL: ANY NEW PATTERNS OF PAIN OR NUMBNESS? NO . GASTROENTEROLOGY: ANY NEW CHANGE IN BOWEL CONTROL? NO - CONSTIPATION UNDER CONTROL WITH MEDS. . GENITOURINARY: ANY NEW CHANGE IN BLADDER CONTROL? NO . IS THERE A CHANCE YOU COULD BE ? NO . HEMATOLOGY/LYMPH: DO YOU TAKE ANY BLOOD THINNERS? (FOR EXAMPLE- COUMADIN, PLAVIX, AGGRENOX, PLATEL, PRADAXA, OR XARELTO) NO . WHEN WAS YOUR LAST DOSE? DATE: TIME: . NEUROLOGY: HAVE YOU FALLEN IN THE PAST 6 MONTHS? YES,, LEG HURTS POST FALL (RIGHT) . ANY NEW EXTREMITY NUMBNESS OR WEAKNESS? NO . CARDIOLOGY: DO YOU HAVE A PACEMAKER OR DEFIBRILLATOR? NO . RESPIRATORY: HAVE YOU BEEN SICK IN THE PAST WEEK? NO . FEVER NO . FLU LIKE SYMPTOMS? NO . COUGH NO . INTEGUMENTARY: DO YOU HAVE ANY RASHES OR OPEN SORES? NO . ALLERGIC/IMMUNO: ARE YOU ALLERGIC TO SHELLFISH OR IV DYE? NO . ANY NEW ALLERGIES? NO . PSYCHIATRIC: DO YOU HAVE THOUGHTS OF HURTING YOURSELF OR SOMEONE ELSE? NO . ARE YOU ABUSED, NEGLECTED, OR IN AN UNSAFE ENVIRONMENT? NO . ENDOCRINOLOGY: ARE YOU DIABETIC? NO . OTHER: DO YOU NEED ANY PRESCRIPTIONS? YES . IF YES, PLEASE LIST: HYDROMORPHONE . ANY NEW PROBLEMS WITH YOUR MEDICATIONS? NO . WHEN DID YOU LAST EAT? ____ . WHEN DID YOU LAST DRINK? ____ . WHAT DID YOU LAST DRINK? ____ . NAME OF PERSON DRIVING YOU HOME? ____ . DO YOU HAVE ANY OTHER QUESTIONS OR CONCERNS NO . VITAL SIGNS WT 200 LBS, HT 66", BMI 32.28 INDEX, BP 139/90 MM HG, HR 76 /MIN, RR 18 /MIN, TEMP 97.2 F, OXYGEN SAT % 95, REVIEWED BY: NL. EXAMINATION GENERAL EXAMINATION: PSYCHALERT , ORIENTED X 3 , APPROPRIATE MOOD AND AFFECT . LUNGS:CLEAR TO AUSCULTATION BILATERALLY. HEART:HEART RATE REGULAR, RAPID. MUSCULOSKELETAL:MUSCLE STRENGTH TESTING 5/5 BILATERAL UPPER EXTREMITIES AND LEFT LOWER EXTREMITY, 5-/5 RIGHT LOWER EXTREMITY DISTALLY AND PROXIMALLY. EXQUISITE TENDER NESS OVER LUMBAR SPINOUS PROCESSES AND PARTICULARLY AT THE RIGHT . NEUROLOGIC EXAM:DTR'S 3+ BILATERAL LOWER EXTREMITY ON RIGHT - NO DEFICEIT ON LEFT. ASSESSMENTS SACROILIITIS, NOT ELSEWHERE CLASSIFIED - M46.1 (PRIMARY) LUMBAR DISC DISPLACEMENT WITHOUT MYELOPATHY - M51.26 LUMBAR RADICULOPATHY - M54.16 TREATMENT SACROILIITIS, NOT ELSEWHERE CLASSIFIED NOTES: TRANSFORAMINAL EPIDURAL RIGHT L4-5. [id number] WRITTEN FOR LYRICA AT 100 MG TWICE A DAY AND HYDROMORPHONE UP TO 4 TIMES A DAYCONSIDER YOGA. CLINICAL NOTES: ISTOP REGISTRY REVIEWED AND NO CONTROLLED SUBATNACES ARE LISTED HER MEDS ARE PROVIDED THROUGH [facility] [address]. BRINGS IN MEDICATIONS WHICH IS APPROPRIATE FOR WHAT WAS DISPENSED. AFTER SCRIPT WAS WRITTEN FOR LYRICA RECEIVED CALL FROM [facility] STATING THAT SHE HAD RECEIVED INCREASED DOSE OF LYRICA FROM HER PRIMARY CARE ON POST - SHE TOOKSCRIPT AND LEFT THE PHARMACY. WILL DISCUSS AT HER NEXT VISIT. PROCEDURE CODES FA211 ESTABILISHED PATIENT [facility] CHARGE DISPOSITION & COMMUNICATION FOLLOW UP JORGE DR LACIE MASON FOR [facility] OFFICE NOTES/F/U IN 1 MONTH (REASON: CHECK AUTHTRANSFORAMINAL EPIDURAL RIGHT L4-5. L5-S1) ELECTRONICALLY SIGNED BY BENJY CUELLAR ON 11/26/2016 AT 06:32 PM EDT DISCLAIMER : THIS IS A VISIT SUMMARY EXTRACTED FROM THE [employer] CHART. IT IS NOT A COPY OF THE [employer] PROGRESS NOTE. MARKUS
== END ==
LOC: M PAIN 09:20
PROVIDERS: ATTEND Nurse Practitioner Family
DX: M46.1 Sacroiliitis, not elsewhere classified (principal); M51.26 Other intervertebral disc displacement, lumbar region; M54.16 Radiculopathy, lumbar region; G89.29 Other chronic pain; F41.9 Anxiety disorder, unspecified; F32.9 Major depressive disorder, single episode, unspecified; Z79.891 Long term (current) use of opiate analgesic; Z79.899 Other long term (current) drug therapy

== ENCOUNTER → 2016-11-22 | Outpatient (CLI) | payer OTHER ==
[~2016-11-22] MED LIST changes: +BUPIVACAINE HCL 0.25% 30 ML VIAL As Ordered ONE; +ISOVUE-M 300 61% 15ML VIAL (Q9967) As Ordered ONE; +LIDOCAINE 1% SDV INJ 30 ML VIAL As Ordered ONE; +MIDAZOLAM INJ 2 MG/2 ML VIAL (J2250) As Ordered ONE; +dexameTHASONE 10 MG/1 ML VIAL PRES.FREE (J1100) As Ordered ONE; +fentaNYL 100 MCG/2 ML INJECTION (J3010) As Ordered ONE
--- NOTE | 2016-11-22 16:34 | REP ---
Partial lumbar spine series: 37 views . History: Injection procedure for pain. 1 minute 10 seconds of fluoroscopy time is reported. Findings: A sequence of three fluoroscopically obtained last image hold procedural spot radiographs of the lumbar spine document needle position and contrast injection associated with injection procedure. Signed by Ludin Barrientos MD 11/22/2016 04:26 P
--- NOTE | 2016-12-01 23:40 | ECWPNPC ---
PATIENT NAME: IMER FOOTE : 1980 GENDER: FEMALE VISIT DATE: 11/22/2016 DISCHARGE DATE: 11/22/16 1623 VISIT LOCKED DATE TIME: PHYSICIAN: CROW WILL RESOURCE: CROW WILL REASON FOR APPOINTMENT 1. TRANFORAMINAL HISTORY OF PRESENT ILLNESS HISTORY OF PRESENT ILLNESS: PAIN THE PATIENT DESCRIBES THE PAIN... FALL RISK SCREENING: SCREENING :NO FALLS IN THE PAST YEAR CURRENT MEDICATIONS TAKING LINZESS 290 MCG CAPSULE 1 CAPSULE ORALLY ONCE A DAY, NOTES: 11-21-16 AM TAKING BUSPAR 10 MG 1 TABLET ORALLY DAILY, NOTES: 11-20-16 PM TAKING ZANAFLEX 4 MG TABLET 1 TABLET ORALLY EVERY BEDTIME, NOTES: 11-20-16 PM TAKING LEXAPRO 10 MG TABLET 1 TABLET ORALLY ONCE A DAY, NOTES: 11-21-16 AM TAKING MULTIVITAMIN 1 TABLET ORALLY DAILY, NOTES: 11-21-16 TAKING VITAMIN B-12 1000 MCG TABLET 1 TABLET ORALLY ONCE A DAY, NOTES: 11-21-16 TAKING MAGNESIUM 27 500 (27 MG) MG TABLET 1 TABLET ORALLY BID, NOTES: 11-21-16 TAKING VITAMIN D 1000 UNIT TABLET 1 TABLET ORALLY ONCE A DAY, NOTES: 11-21-16 TAKING LYRICA 50 MG CAPSULE 1 CAPSULE ORALLY BID, NOTES: 11-21-16 AM TAKING HYDROMORPHONE HCL 4 MG TABLET 1 TABLET NEEDED ORALLY EVERY 6 HRS, NOTES: 11-21-161999 DISCONTINUED PERCOCET 10-325 MG TABLET 1 TABLET NEEDED ORALLY EVERY 4 HRS PRN PAIN MDD=6 DISCONTINUED GABAPENTIN 300 MG CAPSULE 1 CAPSULE ORALLY BID DISCONTINUED CYCLOBENZAPRINE HCL 10 MG TABLET 1 TABLET NEEDED ORALLY THREE TIMES A DAY DISCONTINUED AMBIEN 10 MG TABLET 1/2 TABLET AT BEDTIME NEEDED ORALLY MEDICATION LIST REVIEWED AND RECONCILED WITH THE PATIENT PAST MEDICAL HISTORY CHRONIC PAIN ANXIETY DEPRESSION ALLERGIES N.K.D.A. REVIEW OF SYSTEMS REVIEWED BY: PROVIDER: . CONSTITUTIONAL: ANY CHANGE IN YOUR MEDICAL CONDITION? NO . CHILLS NO . FEVER NO . INFECTION: DO YOU HAVE NEW INFECTIONS? NO . DO YOU HAVE HISTORY OF MRSA? NO . MUSCULOSKELETAL: ANY NEW PATTERNS OF PAIN OR NUMBNESS? NO . GASTROENTEROLOGY: ANY NEW CHANGE IN BOWEL CONTROL? YES, CONSTIPATION . GENITOURINARY: ANY NEW CHANGE IN BLADDER CONTROL? NO . IS THERE A CHANCE YOU COULD BE ? NO . HEMATOLOGY/LYMPH: DO YOU TAKE ANY BLOOD THINNERS? (FOR EXAMPLE- COUMADIN, PLAVIX, AGGRENOX, PLATEL, PRADAXA, OR XARELTO) NO . WHEN WAS YOUR LAST DOSE? DATE: TIME: . NEUROLOGY: HAVE YOU FALLEN IN THE PAST 6 MONTHS? YES . ANY NEW EXTREMITY NUMBNESS OR WEAKNESS? NO . CARDIOLOGY: DO YOU HAVE A PACEMAKER OR DEFIBRILLATOR? NO . RESPIRATORY: HAVE YOU BEEN SICK IN THE PAST WEEK? NO . FEVER NO . FLU LIKE SYMPTOMS? NO . COUGH NO . INTEGUMENTARY: DO YOU HAVE ANY RASHES OR OPEN SORES? NO . ALLERGIC/IMMUNO: ARE YOU ALLERGIC TO SHELLFISH OR IV DYE? NO . ANY NEW ALLERGIES? NO . PSYCHIATRIC: DO YOU HAVE THOUGHTS OF HURTING YOURSELF OR SOMEONE ELSE? NO . ARE YOU ABUSED, NEGLECTED, OR IN AN UNSAFE ENVIRONMENT? NO . ENDOCRINOLOGY: ARE YOU DIABETIC? NO . OTHER: DO YOU NEED ANY PRESCRIPTIONS? NO . IF YES, PLEASE LIST: ____ . ANY NEW PROBLEMS WITH YOUR MEDICATIONS? NO . WHEN DID YOU LAST EAT? 11-21-16 10:30 PM . WHEN DID YOU LAST DRINK? 11-21-16 10:30PM . WHAT DID YOU LAST DRINK? WATER . NAME OF PERSON DRIVING YOU HOME? SIL SINCLAIR . DO YOU HAVE ANY OTHER QUESTIONS OR CONCERNS NO . VITAL SIGNS WT 200 LBS, HT 66", BMI 32.28 INDEX, BP 143/80 MM HG, HR 73 /MIN, RR 18 /MIN, TEMP 97.7 F, OXYGEN SAT % 96%, NA INITIALS SC 11:59, REVIEWED BY: CM. ASSESSMENTS INTERVERTEBRAL DISC DISORDERS WITH RADICULOPATHY, LUMBAR REGION - M51.16 (PRIMARY) PROCEDURES PN LUMBAR TRANSFORAMINAL BLOCKS PRE PROCEDURE DIAGNOSIS LUMBAR DISC DISORDER WITH RADICULOPATHY POST PROCEDURE DIAGNOSIS LUMBAR DISC DISORDER WITH RADICULOPATHY PROCEDURE RIGHT L4 AND RIGHT L5 TRANSFORAMINAL EPIDURAL STEROID INJECTION UNDER FLUOROSCOPIC GUIDANCE SURGEON DR CROW WILL BOW TACKER NONE ANESTHESIA LOCAL WITH IV SEDATION PRE PROCEDURE NOTE PATIENT WITH HISTORY OF CHRONIC LOW BACK PAIN. I EVALUATE THE PATIENT AND REVIEWED THE CHART. I WENT OVER THE RISKS, ALTERNATIVES, AND BENEFITS ASSOCIATED WITH THIS PROCEDURE. PATIENT WOULD LIKE TO MOVE FORWARD WITH IV SEDATION DUE TO DISCOMFORT, PAIN AND ANXIETY ASSOCIATED WITH THE PROCEDURE. THE PATIENT WOULD LIKE TO PROCEED AND GIVE CONSENT TO PERFORMED THE PROCEDURE. THE PATIENT DENIES UNEXPLAINABLE WEIGHT LOSS, FEVER, CHILLS, OR CHANGES IN URINARY OR BOWEL CONTROL DESCRIPTION OF PROCEDURE THE PATIENT WAS BROUGHT TO THE PROCEDURE ROOM AND PLACED IN THE PRONE POSITION. THE LUMBOSACRAL AREA WAS CLEANED WITH BETADINE SOLUTION AND DRAPED ASEPTICALLY. THE PROCEDURE WAS DONE UNDER STERILE CONDITIONS. I CHECKED LATERALITY AND THE LEVEL WHERE THE PROCEDURE WAS GOING TO BE PERFORMED WITH THE PATIENT AND THE SUPPORTING STAFF AT THE MOMENT OF THE TIME OUT IN THE PROCEDURE ROOM. UNDER FLUOROSCOPIC GUIDANCE, TARGETS WERE SELECTED AT THE RIGHT TRANSFORAMINAL OPENING OF L4 AND THE RIGHT TRANSFORAMINAL OPENING OF L5. TARGET POINT WAS SELECTED AFTER LATERAL ROTATION AND TILT OF THE MAGNIFIER OF THE C-ARM. LIDOCAINE 0.5% WAS USED TO NUMB THE SKIN AND THE SUBCUTANEOUS TISSUE BELOW IT. AN EPIMED INTRODUCER 18-GAUGE WAS ADVANCED UNTIL WE WENT CLOSE TO THE SELECTED TRANSFORAMINAL OPENINGS. AFTER PROPER POSITION OF THE NEEDLES WAS ACHIEVED, A 22-GAUGE EPIMED NEEDLE WAS PLACED INSIDE OF THE INTRODUCER AND ADVANCED TO THE TRANSFORAMINAL OPENING OF THE SELECTED SITES. WHEN PROPER POSITION OF THE NEEDLE WAS ACHIEVED, ISOVUE M DYE 30%, 0.25 ML, WAS INJECTED SHOWING ADEQUATE SPREAD OF THE DYE. THIS WAS DONE UNDER DIGITAL SUBTRACTION AND ANGIOGRAPHY. THERE WAS NO VASCULAR UPDATE. THEN, A SOLUTION OF 2 ML OF BUPIVACAINE 0.25% AND DEXAMETHASONE 10 MG WAS INJECTED AT EACH SITE. PATIENT RECEIVED VERSED 2 MG AND FENTANYL 100 MCG IV DIVIDED DOSES THERE WAS NO EVIDENCE OF BLOOD, PARESTHESIA OR CEREBROSPINAL FLUID DURING THE PROCEDURE. THE PATIENT WAS SENT TO THE RECOVERY ROOM. THE PATIENT WAS MOVING THE EXTREMITIES AND DOING WELL. THERE WAS NO COMPLICATION DURING THE PROCEDURE. FLUOROSCOPY TIME WAS 1 MINUTE 10 SECONDS. FACE TO FACE TIME WAS 23 MINUTES POST PROCEDURE NOTE THE PROCEDURE DONE WAS DISCUSSED WITH THE PATIENT. THE PATIENT WILL BE SEEN IN A FOLLOW UP IN THE NEXT FEW WEEKS. INSTRUCTIONS WERE GIVEN, QUESTIONS WERE ANSWERED, AND THE PATIENT EXPRESSED UNDERSTANDING AND AGREES WITH THE PLAN. I, DWIGHT SERRANO, DOCUMENTED THE ABOVE INFORMATION ACTING A SCRIBE FOR DR. WILL. I HAVE REVIEWED THE ABOVE DOCUMENT, WRITTEN BY DWIGHT GRANADOS AND I VERIFY THAT IT IS ACCURATE DIAGNOSTIC IMAGING [facility] FLUORO GUIDE SPINE INJECTION (PAIN)[id number] PROCEDURE CODES 99284 INJ FORAMEN EPIDURAL L/S 51772 INJ FORAMEN EPIDURAL ADD-ON 6045F RADXPS IN END [id number] PXD 69580 MOD SED SAME PHYS/QHP 5/>YRS 70045 MOD SED SAME PHYS/QHP EA DISPOSITION & COMMUNICATION FOLLOW UP 3 WEEKS ELECTRONICALLY SIGNED BY CROW WILL MD ON 12/01/2016 AT 10:09 PM EDT DISCLAIMER : THIS IS A VISIT SUMMARY EXTRACTED FROM THE [employer] CHART. IT IS NOT A COPY OF THE [employer] PROGRESS NOTE. MTDD
== END ==
LOC: M PAIN 11:40
PROVIDERS: ATTEND Anesthesiology
DX: G89.29 Other chronic pain (principal); M51.16 Intervertebral disc disorders with radiculopathy, lumbar region; F41.9 Anxiety disorder, unspecified; F32.9 Major depressive disorder, single episode, unspecified; Z79.899 Other long term (current) drug therapy; Z79.891 Long term (current) use of opiate analgesic
CPT/HCPCS: 64483; 64484; 99152; 99153; J1100; J2250; J3010; Q9967

== ENCOUNTER → 2016-12-12 | Outpatient (CLI) | payer OTHER ==
[~2016-12-12] MED LIST changes: -BUPIVACAINE HCL 0.25% 30 ML VIAL As Ordered ONE; -ISOVUE-M 300 61% 15ML VIAL (Q9967) As Ordered ONE; -LIDOCAINE 1% SDV INJ 30 ML VIAL As Ordered ONE; -MIDAZOLAM INJ 2 MG/2 ML VIAL (J2250) As Ordered ONE; -dexameTHASONE 10 MG/1 ML VIAL PRES.FREE (J1100) As Ordered ONE; -fentaNYL 100 MCG/2 ML INJECTION (J3010) As Ordered ONE
--- NOTE | 2016-12-13 10:06 | REP ---
REASON: History of Chiari I malformation. COMPARISON: 10/10/2016 which was normal with the exception of 5 mm of cerebellar tonsillar ectopia. Gadolinium utilized for today 15 mL of ProHance. Patient has also been experiencing symptoms suggestive of a demyelinating disorder as per history. There is no change in the craniovertebral junction. There is cerebellar tonsillar ectopia. The ventricles and sulci are unchanged. There are no extra-axial fluid collections. There is no shift of the midline structures. There is no mass effect on the noncontrast scan and there are no enhancing mass lesions on the postcontrast scan. The deep cerebral white matter is unchanged and again seen to be within normal limits. The orbital and petrous structures, cerebellopontine angles, and posterior fossa are again seen to be within normal limits. The sella turcica, cavernous, and paracavernous structures are again seen to be normal. The visualized portions of the paranasal sinuses and mastoid air cells are again seen to be clear. IMPRESSION: 1. There is unchanged cerebellar tonsillar ectopia. 2. The examination is otherwise within normal limits and essentially unchanged from the prior exam. Signed by Popeye Roberto DO 12/13/2016 10:51 A
== END ==
LOC: M RAD 16:36
PROVIDERS: ATTEND Psychiatry & Neurology Psychiatry
DX: Q04.8 Other specified congenital malformations of brain (principal)
CPT/HCPCS: 70553; A9576

== ENCOUNTER → 2016-12-20 | Outpatient (CLI) | payer OTHER ==
--- NOTE | 2017-01-10 01:49 | ECWPNPC ---
PATIENT NAME: IMER FOOTE : 1980 GENDER: FEMALE VISIT DATE: 12/20/2016 DISCHARGE DATE: 12/20/16 1003 VISIT LOCKED DATE TIME: PHYSICIAN: JACK ROYAL RESOURCE: JACK ROYAL REASON FOR APPOINTMENT 1. POST TRANSFORAMINAL HISTORY OF PRESENT ILLNESS HISTORY OF PRESENT ILLNESS: PAIN THE PATIENT DESCRIBES THE PAIN... FALL RISK SCREENING: SCREENING :NO FALLS IN THE PAST YEAR TODAY'S VISIT: NOTES: IS S/P RIGHT L4 AND L5 TRANSFORMANINAL EPIDURAL INJECTION REPORTS HAD NO RELIEF. PAIN CONTINUES TO RADIATE DOWN THE RIGHT LEG TO THE LEVEL OF FOOT. RIGHT LEG FEELS WEAK, AND HAS A FALL DOWN THE STAIRS. REPORTS THAT HYDROMORPHONE PRODUCED SEVERE CONSTIPATION. ALSO REPORTS THAT MEMORY WAS EFFECTED. IS NOT SURE ABOUT THE LYRICA. IS WORKING WITH SURGEON TO MOVE FORWARD WITH [facility]. HAS PSYCH EVAL SCHED. . CURRENT MEDICATIONS TAKING LINZESS 290 MCG CAPSULE 1 CAPSULE ORALLY ONCE A DAY TAKING ZANAFLEX 4 MG TABLET 1 TABLET ORALLY EVERY BEDTIME TAKING LEXAPRO 10 MG TABLET 1 TABLET ORALLY ONCE A DAY TAKING MAGNESIUM 27 500 (27 MG) MG TABLET 1 TABLET ORALLY BID TAKING VITAMIN D 1000 UNIT TABLET 1 TABLET ORALLY ONCE A DAY TAKING LYRICA 50 MG CAPSULE 1 CAPSULE ORALLY BID TAKING EFFEXOR XR 150 MG CAPSULE EXTENDED RELEASE 24 HOUR 1 CAPSULE WITH FOOD ORALLY ONCE A DAY, NOTES: WORKING HER WAY UP ON THIS NOT-TAKING BUSPAR 10 MG 1 TABLET ORALLY DAILY NOT-TAKING MULTIVITAMIN 1 TABLET ORALLY DAILY NOT-TAKING VITAMIN B-12 1000 MCG TABLET 1 TABLET ORALLY ONCE A DAY, NOTES: ON INJECTION NOW/ DOSE UNKNOWN NOT-TAKING HYDROMORPHONE HCL 4 MG TABLET 1 TABLET NEEDED ORALLY EVERY 6 HRS MEDICATION LIST REVIEWED AND RECONCILED WITH THE PATIENT PAST MEDICAL HISTORY CHRONIC PAIN ANXIETY DEPRESSION ALLERGIES N.K.D.A. REVIEW OF SYSTEMS REVIEWED BY: PROVIDER: JACK TEMPLE . CONSTITUTIONAL: ANY CHANGE IN YOUR MEDICAL CONDITION? NO . CHILLS NO . FEVER NO . INFECTION: DO YOU HAVE NEW INFECTIONS? NO . DO YOU HAVE HISTORY OF MRSA? NO . MUSCULOSKELETAL: ANY NEW PATTERNS OF PAIN OR NUMBNESS? NO . GASTROENTEROLOGY: ANY NEW CHANGE IN BOWEL CONTROL? NO . GENITOURINARY: ANY NEW CHANGE IN BLADDER CONTROL? NO . IS THERE A CHANCE YOU COULD BE ? NO . HEMATOLOGY/LYMPH: DO YOU TAKE ANY BLOOD THINNERS? (FOR EXAMPLE- COUMADIN, PLAVIX, AGGRENOX, PLATEL, PRADAXA, OR XARELTO) NO . WHEN WAS YOUR LAST DOSE? DATE: TIME: . NEUROLOGY: HAVE YOU FALLEN IN THE PAST 6 MONTHS? YES, NOT SINCE SHE WAS HERE LAST . ANY NEW EXTREMITY NUMBNESS OR WEAKNESS? NO . CARDIOLOGY: DO YOU HAVE A PACEMAKER OR DEFIBRILLATOR? NO . RESPIRATORY: HAVE YOU BEEN SICK IN THE PAST WEEK? NO . FEVER NO . FLU LIKE SYMPTOMS? NO . COUGH NO . INTEGUMENTARY: DO YOU HAVE ANY RASHES OR OPEN SORES? NO . ALLERGIC/IMMUNO: ARE YOU ALLERGIC TO SHELLFISH OR IV DYE? NO . ANY NEW ALLERGIES? NO . PSYCHIATRIC: DO YOU HAVE THOUGHTS OF HURTING YOURSELF OR SOMEONE ELSE? NO . ARE YOU ABUSED, NEGLECTED, OR IN AN UNSAFE ENVIRONMENT? NO . ENDOCRINOLOGY: ARE YOU DIABETIC? NO . OTHER: DO YOU NEED ANY PRESCRIPTIONS? NOT TAKING HYDROMORPHONE DUE TO CONSTIPATION/ MAY NEED SOMETHING ELSE . IF YES, PLEASE LIST: ____ . ANY NEW PROBLEMS WITH YOUR MEDICATIONS? NO . WHEN DID YOU LAST EAT? ____ . WHEN DID YOU LAST DRINK? ____ . WHAT DID YOU LAST DRINK? ____ . NAME OF PERSON DRIVING YOU HOME? ____ . DO YOU HAVE ANY OTHER QUESTIONS OR CONCERNS NO . VITAL SIGNS WT 214.6 LBS, HT 66", BMI 34.63 INDEX, BP 140/82 MM HG, HR 91 /MIN, RR 18 /MIN, TEMP 97.5 F, OXYGEN SAT % 96%, NA INITIALS SC 09:18, REVIEWED BY: NL. EXAMINATION GENERAL EXAMINATION: PSYCHALERT , ORIENTED X 3 , APPROPRIATE MOOD AND AFFECT . LUNGS:CLEAR TO AUSCULTATION BILATERALLY. HEART:HEART RATE REGULAR, RAPID. MUSCULOSKELETAL:MUSCLE STRENGTH TESTING 5/5 BILATERAL UPPER EXTREMITIES AND LEFT LOWER EXTREMITY, 5-/5 RIGHT LOWER EXTREMITY DISTALLY AND PROXIMALLY. EXQUISITE TENDER NESS OVER LUMBAR SPINOUS PROCESSES AND PARTICULARLY AT THE RIGHT . NEUROLOGIC EXAM:DTR'S 3+ BILATERAL LOWER EXTREMITY ON RIGHT - NO DEFICEIT ON LEFT. ASSESSMENTS INTERVERTEBRAL DISC DISORDERS WITH RADICULOPATHY, LUMBAR REGION - M51.16 (PRIMARY) LUMBAR DISC DISPLACEMENT WITHOUT MYELOPATHY - M51.26 TREATMENT INTERVERTEBRAL DISC DISORDERS WITH RADICULOPATHY, LUMBAR REGION NOTES: CONTINUE LYRICA AT 100 MG TWICE A DAY. CONTINUE WITH SOS FOR DCS. PROCEDURE CODES FA211 ESTABILISHED PATIENT [facility] FAC[facility] CHARGE DISPOSITION & COMMUNICATION FOLLOW UP CALL IF APPT NEEDED (REASON: BACK PAIN) ELECTRONICALLY SIGNED BY BENJY CUELLAR ON 01/09/2017 AT 08:45 AM EDT DISCLAIMER : THIS IS A VISIT SUMMARY EXTRACTED FROM THE [employer] CHART. IT IS NOT A COPY OF THE [employer] PROGRESS NOTE. MARKUS
== END ==
LOC: M PAIN 09:00
PROVIDERS: ATTEND Nurse Practitioner Family
DX: G89.29 Other chronic pain (principal); M51.16 Intervertebral disc disorders with radiculopathy, lumbar region; F41.9 Anxiety disorder, unspecified; F32.9 Major depressive disorder, single episode, unspecified; Z79.899 Other long term (current) drug therapy

== ENCOUNTER → 2017-02-18 | Outpatient (CLI) | payer OTHER ==
--- NOTE | 2017-02-19 08:33 | REP ---
CT THORACIC SPINE WITHOUT CONTRAST: HISTORY: Dorsal column stimulator placement. There is no acute fracture or subluxation. There is no disc bulge or herniation. The spinal canal and neural foramina are patent. The intervertebral discs and vertebral bodies are normal in height. IMPRESSION: There is no acute fracture or subluxation. Signed by Jimbo Callahan MD 02/19/2017 08:34 A
== END ==
LOC: M RAD 16:53
PROVIDERS: ATTEND Neurological Surgery
DX: Z01.818 Encounter for other preprocedural examination (principal); M51.26 Other intervertebral disc displacement, lumbar region

== ENCOUNTER → 2017-09-09 | Outpatient (CLI) | payer OTHER, SELFPAY | LOC: M PAIN 08:45 | DX: M51.16 Intervertebral disc disorders with radiculopathy, lumbar region (principal); M51.26 Other intervertebral disc displacement, lumbar region; F41.9 Anxiety disorder, unspecified; F32.9 Major depressive disorder, single episode, unspecified; Z79.899 Other long term (current) drug therapy; Z96.89 Presence of other specified functional implants | CPT/HCPCS: G0463 ==

== ENCOUNTER 2017-09-10 17:05 | Emergency (ER) | payer OTHER ==
[2017-09-10] MEDS: PERCOCET 5MG/325MG TAB PO (18:20)
[2017-09-10] MEDS: MORPHINE 4 MG/ML 1ML VIAL/SYRINGE (J2270) IM (19:30)
[2017-09-10] MEDS: predniSONE 20 MG TAB PO (20:59)
== END 2017-09-10 21:02 | disposition home or self-care (01) ==
LOC: M ED 17:05
DX: M54.42 Lumbago with sciatica, left side (principal); F41.9 Anxiety disorder, unspecified; F33.9 Major depressive disorder, recurrent, unspecified; Z87.891 Personal history of nicotine dependence; Z96.89 Presence of other specified functional implants; Z88.8 Allergy status to other drugs, medicaments and biological substances; Z79.899 Other long term (current) drug therapy
CPT/HCPCS: J2270

== ENCOUNTER → 2017-09-30 | Outpatient (CLI) | payer OTHER | LOC: M RAD 15:56 | DX: M51.16 Intervertebral disc disorders with radiculopathy, lumbar region (principal); Z53.9 Procedure and treatment not carried out, unspecified reason ==

== ENCOUNTER 2017-10-16 20:40 | Emergency (ER) | payer OTHER ==
[2017-10-16 21:16] LABS: BASO # 0.1 10^3/uL (0.0-0.2); BASO % 0.5 % (0.0-1.0); EOS % 0.1 % (0.0-3.0); HEMATOCRIT 39.9 % (36.0-47.0); HEMOGLOBIN 14.1 g/dl (12.0-15.5); IMMATURE GRANULOCYTE % 0.3 % (0-3.0); LYMPH # 2.6 10^3/uL (1.5-4.5); LYMPH % 20.4 % (24.0-44.0); MEAN CORPUSCULAR HEMOGLOBIN 31.6 pg (27.0-33.0); MEAN CORPUSCULAR HGB CONC 35.3 g/dl (32.0-36.5); MEAN CORPUSCULAR VOLUME 89.5 fl (80.0-96.0); MONO # 0.8 10^3/uL (0.0-0.8); MONO % 6.4 % (0.0-5.0); NEUTROPHILS # 9.1 10^3/uL (1.8-7.7); NEUTROPHILS % 72.3 % (36.0-66.0); PLATELET COUNT, AUTOMATED 312 10^3/uL (150-450); RED BLOOD COUNT 4.46 10^6/uL (4.00-5.40); WHITE BLOOD COUNT 12.6 10^3/uL (4.0-10.0)
[2017-10-16] MEDS: NS 1,000 ML IV (21:21)
[2017-10-16 21:33] LABS: CONTROL LINE HCG INT CTR LINE PRESENT; HCG, SERUM QUALITATIVE NEGATIVE (NEGATIVE)
[2017-10-16] MEDS: GI COCKTAIL 50ML BTL(HYOSCYAMINE/MAALOX/LIDOCAINE VISCOUS)(1:3:1) PO (21:36)
[2017-10-16] MEDS: METOPROLOL TART 25 MG TABLET PO (21:36)
[2017-10-16] MEDS: NITROGLYCERIN 0.4 MG SUBL TABLET SL ×3 (21:36→21:46)
[2017-10-16] MEDS: ASPIRIN 81 MG CHEW TABLET PO (21:37)
[2017-10-16 22:02] LABS: ANION GAP 7 MEQ/L (8-16); BLOOD UREA NITROGEN 9 MG/DL (7-18); CALCIUM LEVEL 8.4 MG/DL (8.5-10.1); CARBON DIOXIDE LEVEL 28 MEQ/L (21-32); CHLORIDE LEVEL 104 MEQ/L (98-107); CK-MB VALUE MASS 1.4 NG/ML (<3.6); CPK CREATINE PHOSPHOKINASE 144 U/L (26-192); GLOMERULAR FILTRATION RATE > 60.0 (>60); GLUCOSE, FASTING 199 MG/DL (70-100); LIPASE 155 U/L (73-393); MB/CK RELATIVE INDEX 0.97 (< OR =4); POTASSIUM SERUM 3.4 MEQ/L (3.5-5.1); SODIUM LEVEL 139 MEQ/L (136-145); TROPONIN I < 0.02 NG/ML (< 0.10)
[2017-10-16] MEDS: LABETALOL HCL 100 MG/20 ML VIAL IV (22:20)
[2017-10-16] MEDS: hydrALAZINE INJ 20 MG/ML VIAL IV (22:25)
[2017-10-16] MEDS: clonazePAM 0.5 MG TAB PO (22:30)
[2017-10-16] MEDS ORDERED: PILL CRUSHER/CUTTER 1 EACH XX (22:34)
== END 2017-10-16 23:55 | disposition home or self-care (01) ==
LOC: M ED 20:40
DX: I10 Essential (primary) hypertension (principal); R07.89 Other chest pain; R11.2 Nausea with vomiting, unspecified; F17.200 Nicotine dependence, unspecified, uncomplicated; Z88.8 Allergy status to other drugs, medicaments and biological substances; Z79.899 Other long term (current) drug therapy
CPT/HCPCS: 71045

== ENCOUNTER 2017-10-20 11:57 | Emergency (ER) | payer OTHER ==
[2017-10-20] MEDS: METOCLOPRAMIDE INJ 10MG/2ML VIAL (J2765) IV ×2 (13:23)
[2017-10-20 13:29] LABS: BASO % 0.3 % (0.0-1.0); EOS % 0.1 % (0.0-3.0); HEMATOCRIT 44.1 % (36.0-47.0); HEMOGLOBIN 15.4 g/dl (12.0-15.5); IMMATURE GRANULOCYTE % 0.3 % (0-3.0); LYMPH % 16.9 % (24.0-44.0); MEAN CORPUSCULAR HEMOGLOBIN 31.2 pg (27.0-33.0); MEAN CORPUSCULAR HGB CONC 34.9 g/dl (32.0-36.5); MEAN CORPUSCULAR VOLUME 89.3 fl (80.0-96.0); MONO # 0.7 10^3/uL (0.0-0.8); MONO % 5.8 % (0.0-5.0); NEUTROPHILS # 8.8 10^3/uL (1.8-7.7); NEUTROPHILS % 76.6 % (36.0-66.0); PLATELET COUNT, AUTOMATED 345 10^3/uL (150-450); RED BLOOD COUNT 4.94 10^6/uL (4.00-5.40); RED CELL DISTRIBUTION WIDTH 12.1 % (11.5-14.5); WHITE BLOOD COUNT 11.5 10^3/uL (4.0-10.0)
[2017-10-20 13:51] LABS: ALBUMIN/GLOBULIN RATIO 1.05 (1.00-1.93); ALKALINE PHOSPHATASE 78 U/L (45-117); ALT/SGPT 82 U/L (12-78); AMYLASE 22 U/L (25-115); ANION GAP 8 MEQ/L (8-16); AST/SGOT 48 U/L (7-37); BILIRUBIN,DIRECT 0.2 MG/DL (0.0-0.2); BILIRUBIN,TOTAL 0.8 MG/DL (0.2-1.0); BLOOD UREA NITROGEN 8 MG/DL (7-18); CALCIUM LEVEL 9.4 MG/DL (8.5-10.1); CARBON DIOXIDE LEVEL 28 MEQ/L (21-32); CHLORIDE LEVEL 102 MEQ/L (98-107); CREATININE FOR GFR 0.68 MG/DL (0.55-1.30); GLOMERULAR FILTRATION RATE > 60.0 (>60); GLUCOSE, FASTING 99 MG/DL (70-100); LIPASE 135 U/L (73-393); POTASSIUM SERUM 3.9 MEQ/L (3.5-5.1); SODIUM LEVEL 138 MEQ/L (136-145); TOTAL PROTEIN 7.8 GM/DL (6.4-8.2)
[2017-10-20] MEDS: LOSARTAN 50 MG TAB PO ×2 (14:53)
[2017-10-20] MEDS: hydroCHLOROthiazide 12.5 MG CAPSULE PO ×2 (14:53)
[2017-10-20] MEDS: MAGNESIUM CITRATE 300 ML BTL PO ×2 (15:10)
[2017-10-20 15:44] LABS: HEPATITIS B SURFACE ANTIGEN NEGATIVE (NEGATIVE)
[2017-10-20 16:11] LABS: HEPATITIS B CORE ANTIBODY IGM NEGATIVE (NEGATIVE)
[2017-10-20 16:11] LABS: HEPATITIS C VIRUS ABY INDEX < 0.0 INDEX (<0.8)
[2017-10-20 16:15] LABS: HEPATITIS A ANTIBODY IGM NEGATIVE (NEGATIVE)
== END 2017-10-20 15:10 | disposition home or self-care (01) ==
LOC: M ED 11:57
DX: K59.00 Constipation, unspecified (principal); I10 Essential (primary) hypertension; K58.9 Irritable bowel syndrome, unspecified; N80.9 Endometriosis, unspecified; Z96.9 Presence of functional implant, unspecified; Z79.899 Other long term (current) drug therapy; Z88.8 Allergy status to other drugs, medicaments and biological substances; F17.210 Nicotine dependence, cigarettes, uncomplicated
CPT/HCPCS: J2765

== ENCOUNTER → 2017-11-05 | Outpatient (CLI) | payer OTHER | LOC: M PAIN 14:30 | DX: M51.16 Intervertebral disc disorders with radiculopathy, lumbar region (principal); M51.26 Other intervertebral disc displacement, lumbar region; F41.9 Anxiety disorder, unspecified; F32.9 Major depressive disorder, single episode, unspecified; R20.2 Paresthesia of skin; Z79.891 Long term (current) use of opiate analgesic; Z79.899 Other long term (current) drug therapy; Z88.8 Allergy status to other drugs, medicaments and biological substances | CPT/HCPCS: G0463 ==

== ENCOUNTER → 2018-02-25 | Outpatient (CLI) | payer OTHER | LOC: M PAIN 10:15 | DX: G89.29 Other chronic pain (principal); M51.16 Intervertebral disc disorders with radiculopathy, lumbar region; M51.26 Other intervertebral disc displacement, lumbar region; Z79.891 Long term (current) use of opiate analgesic; F41.9 Anxiety disorder, unspecified; F32.9 Major depressive disorder, single episode, unspecified; Z87.891 Personal history of nicotine dependence; Z79.899 Other long term (current) drug therapy; Z88.8 Allergy status to other drugs, medicaments and biological substances | CPT/HCPCS: G0463 ==

== ENCOUNTER 2018-06-10 18:54 | Emergency (ER) | payer OTHER ==
[~2018-06-10] VITALS: Ht 172.7 cm; Wt 90.9 kg
[~2018-06-10 18:54] MED LIST changes: +EFFE150C2 PO; +FLEEENE4 PR; +LOSA100T8 PO; +LOSARTAN-HCTZ; +METH1TAB40; +MIRA3350 PO; +NAPR-50 PO; -NAPR500T PO; +OXYC1TAB23 PO; +PEPT262T2 PO; +PERC5TAB12 PO; +PRED20TA PO; +PREG100CA; -TIZANIDINE; +TIZANIDINE PO; +TRAM50TA2; +TUMS500C PO; +ZOFR4TAB14 PO
[2018-06-10] MEDS ORDERED: CYCL10TA (19:02)
--- NOTE | 2018-06-10 21:22 | REP ---
Clinical: Fall. Pain. Technique: AP, inlet, and lateral views of the sacrum and coccyx. Findings: The bilateral sacroiliac joints appear intact and normal/symmetric. The sacrum and coccyx are intact and without evidence for acute fracture or dislocation. Impression: Normal sacral coccygeal x-rays. Electronically Signed by Channing Juarez MD 06/10/2018 09:13 P
[2018-06-10] MEDS ORDERED: KETOROLAC TROMETHAMINE 10 MG TAB PO ONE (21:45)
[2018-06-10] MEDS ORDERED: METHOCARBAMOL 750 MG TAB PO ONE (21:45)
[2018-06-10] MEDS ORDERED: PERCOCET 5MG/325MG TAB PO ONE (21:45)
[2018-06-10] MEDS ORDERED: ROBA500T PO (22:33)
[2018-06-10] MEDS ORDERED: PERC5TAB12 PO (22:33)
[2018-06-10] MEDS ORDERED: KETO10TAB PO (22:33)
[2018-06-10 22:40] VITALS: BP 137/90
== END 2018-06-10 22:42 | disposition home or self-care (01) ==
LOC: M ED 18:54
DX: S30.0XXA Contusion of lower back and pelvis, initial encounter (principal); S39.012A Strain of muscle, fascia and tendon of lower back, initial encounter; X50.1XXA Overexertion from prolonged static or awkward postures, initial encounter

== ENCOUNTER → 2019-07-14 | Outpatient (CLI) | payer OTHER ==
[~2019-07-14] MED LIST changes: +CYCL10TA; +HYDR-3715 PO; +KETO10TAB PO; -MAGN400T PO; +MAGN400T3 PO; -NAPR-50 PO; +NAPR-837 PO; -NORCOTAB PO; +OMEP1CAP73; -OMEP20CA3; -VICO5TAB16 PO; +VICO5TAB17 PO
--- NOTE | 2019-07-14 12:43 | REP ---
Right middle finger five views: There is a nondisplaced fracture at the base of the distal phalange. There is no dislocation. Mineralization and joint spaces are normal. No foreign bodies or calcifications. Impression: Nondisplaced fracture the base of the distal phalange. Electronically Signed by Arnol Oliveira MD 07/14/2019 12:35 P
== END ==
LOC: M LRY 12:18
PROVIDERS: ATTEND Nurse Practitioner Family
DX: S62.662A Nondisplaced fracture of distal phalanx of right middle finger, initial encounter for closed fracture (principal); X58.XXXA Exposure to other specified factors, initial encounter; Y92.89 Other specified places as the place of occurrence of the external cause
CPT/HCPCS: 73140; G0463

== ENCOUNTER → 2020-06-21 | Outpatient (CLI) | payer OTHER ==
[~2020-06-21] MED LIST changes: +CYCL-707; -CYCL10TA; +ESCI10TA16 PO; -ESCI10TA2 PO; -ESCI20TA; +ESCI20TA16; +METH-1164; -METH1TAB40
== END ==
LOC: M LABSMTC 13:14
PROVIDERS: ATTEND Family Medicine
DX: Z20.822 Contact with and (suspected) exposure to COVID-19 (principal)
CPT/HCPCS: C9803; U0003

== ENCOUNTER → 2020-09-14 | Outpatient (CLI) | payer OTHER ==
--- NOTE | 2020-09-16 02:11 | ECWPNPC ---
PATIENT NAME: IMER JON : 1980 GENDER: FEMALE VISIT DATE: 09/14/2020 DISCHARGE DATE: 09/14/20925 VISIT LOCKED DATE TIME: PHYSICIAN: BOO BHATTI RESOURCE: BOO BHATTI REASON FOR APPOINTMENT 1. LOW BACK HISTORY OF PRESENT ILLNESS DEPRESSION SCREENING: PHQ-2 (2015 EDITION) LITTLE INTEREST OR PLEASURE IN DOING THINGS?NOT AT ALL FEELING DOWN, DEPRESSED, OR HOPELESS?SEVERAL DAYS TOTAL SCORE1 40-YEAR-OLD FEMALE IN FOR INITIAL PAIN CONSULT REGARDING LOW BACK PAIN. 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 PATIENT HAS RECEIVED INJECTIONS IN THE PAST AND FOUND THEM BENEFICIAL. SHE RATES HER PAIN CURRENTLY AT A 7 OUT OF 10 AND DESCRIBES IT SHOOTING AND ELECTRIC FEELING. GENERAL: - -. FALL RISK SCREENING: SCREENING ONE FALL REPORTED IN THE LAST YEAR WITHOUT INJURY.. PAIN SCREENING: PATIENT HAS A COMPLAINT OF ACUTE OR CHRONIC PAIN :YES LOCATION OF PAIN:LOW BACK, LEFT HIP, RIGHT HIP INTENSITY OF PAIN (SCALE OF 1 TO 10):7 WHAT DOES YOUR PAIN FEEL LIKE:SHOOTING, OTHER ELECTRICITY DURATION:CONTINOUS, AWAKENS FROM SLEEP PAIN IS INCREASED BY:ACTIVITIES, PROLONGED STANDING PROLONGED SITTING PAIN IS DECREASED BY:USE OF PAIN MEDICATIONS NURSING NOTE: - -. PAIN CENTER INTAKE QUESTIONS: DO YOU HAVE A HISTORY OF MRSA? :NO DO YOU TAKE A BLOOD THINNERS? :NO DO YOU HAVE ANY BLEEDING DISORDERS? :NO ANY NEW NUMBNESS OR WEAKNESS IN YOUR LEGS OR ARMS? :NO ANY PACEMAKER,DEFIBRILLATOR, OR DORSAL COLUMN STIMULATOR? :NO DO YOU HAVE ANY RASHES OR OPEN SORES? :YES RASH ON INNER LEFT ARM ARE YOU ALLERGIC TO IV DYE? :NO ARE YOU DIABETIC? :NO ANY NEW PROBLEMS WITH YOUR MEDICATIONS? :NO HAVE YOU RECEIVED A VACCINE IN THE PAST 30 DAYS? :NO DO YOU PLAN TO RECEIVE A VACCINE IN THE NEXT 21 DAYS? :NO DO YOU NEED ANY PRESCRIPTION? :NO DO YOU TAKE ANY IMMUNOSUPPRESSIVE MEDICATIONS? :NO IS THERE A CHANCE YOU COULD BE ? :NO ARE YOU BREAST FEEDING? :NO CURRENT MEDICATIONS TAKING OXYCODONE-ACETAMINOPHEN 5-325 MG TABLET 1 TABLET NEEDED ORALLY EVERY 6 HRS TAKING ADDERALL 10 MG TABLET 1 TABLET ORALLY TWICE A DAY TAKING TRILEPTAL 150 MG TABLET 1 TABLET ORALLY TWICE A DAY TAKING LINZESS 290 MCG CAPSULE 1 CAPSULE ORALLY ONCE A DAY TAKING OMEPRAZOLE 20 MG CAPSULE DELAYED RELEASE 1 CAPSULE ORALLY ONCE A DAY TAKING LEXAPRO 20 MG TABLET 1 TABLET ORALLY ONCE A DAY NOT-TAKING VITAMIN B COMPLEX-C - CAPSULE 1 CAP ORALLY DAILY NOT-TAKING FISH OIL 1000 MG CAPSULE 1 CAPSULE ORALLY ONCE A DAY NOT-TAKING CALCIUM POLYCARBOPHIL 625 MG TABLET 2 TABLETS NEEDED ORALLY ONCE DAILY NOT-TAKING OXCARBAZEPINE 150 MG TABLET 1 TABLET ORALLY TWICE A DAY NOT-TAKING ESCITALOPRAM OXALATE 20 MG TABLET 1 TABLET ORALLY ONCE A DAY NOT-TAKING EFFEXOR TABLET ORALLY , NOTES: 50MG DAILY MEDICATION LIST REVIEWED AND RECONCILED WITH THE PATIENT PAST MEDICAL HISTORY CHRONIC PAIN ANXIETY DEPRESSION BREAST CANCER PANCREATIC CANCER BIPOLAR II DISORDER HTN STROKE ALLERGIES GABAPENTIN: NAUSEA/VOMITING - ALLERGY HYDROMORPHONE HCL: CONFUSION, MEMORY LOSS - SIDE EFFECTS SURGICAL HISTORY REMOVAL OF DCS PARTIAL HYSTERECTOMY 2013 TUBAL LIGATION 2012 ECTOPIC 2011 DISCETOMY 2019 DORSAL STIMULATOR IMPLANT 2017 COLONOSCOPY 2007 ENDOSCOPY 2006 FAMILY HISTORY FATHER: ALIVE MOTHER: ALIVE SIBLINGS: ALIVE 1 BROTHER(S) , 1 SISTER(S) - HEALTHY. 1 SON(S) , 1 DAUGHTER(S) - HEALTHY. SOCIAL HISTORY GENERAL: TOBACCO USE ARE YOU A:FORMER SMOKER SMOKING CESSATION INFORMATION GIVEN09/14/2020 VAPORYES DAILY LATEX QUESTIONNAIRE LATEX ALLERGY : HAVE YOU EVER DEVELOPED ANY TYPE OF REACTION AFTER HANDLING LATEX PRODUCTS SUCH RUBBER GLOVES, CONDOMS, DIAPHRAGMS, BALLOONS, SOCKS, OR UNDERWEAR?NO LATEX ALLERGY : HAVE YOU EVER DEVELOPED ANY TYPE OF REACTION DURING OR AFTER DENTAL APPOINTMENT, VAGINAL/RECTAL EXAMINATION, SURGICAL PROCEDURE, OR ANY OTHER EXPOSURE?NO LATEX RISK : HAVE YOU EVER HAD ANY DIFFICULTY BREATHING OR HIVES AFTER EATING OR HANDLING ANY FRUITS, OR VEGETABLES; SUCH KIWI, BANANAS, STONE FRUITS, OR CHESTNUTSNO LATEX RISK : DO YOU HAVE A PREVIOUS PERSONAL HISTORY OF MORE THAN NINE SURGERIES, SPINA BIFIDA, OR REPEATED CATHERIZATIONS? NO LATEX RISK : ARE YOU FREQUENTLY EXPOSED TO LATEX PRODUCTS IN YOUR OCCUPATION?NO DATE ASKED : 09/14/2020 ALCOHOL USE: OCCASIONAL. RECREATIONAL DRUG USE DRUG USE?NO CAFFEINE CAFFEINE USE?YES HOW OFTEN AND HOW MUCH? 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 EXERCISE: WALKS. - WAS THE PROVIDER NOTIFIED OF ANY PERTINENT INFO?YES HAS THE PATIENT BEEN EDUCATED REGARDING HIS/HER PLAN OF CARE?YES HAS THE PATIENT BEEN EDUCATED REGARDING PAIN, THE RISK FOR PAIN, THE IMPORTANCE OF EFFECTIVE PAIN MANAGEMENT, AND THE PAIN ASSESSMENT PROCESS?YES ADVANCE DIRECTIVE ADVANCE DIRECTIVE DISCUSSED WITH PATIENT:NO YFN LUCAS - [phone] HOSPITALIZATION/MAJOR DIAGNOSTIC PROCEDURE BLOOD CLOT IN SPINE DUE TO REMOVAL OF DCS, OVERNIGHT STAY 12/2017 REVIEW OF SYSTEMS CONSTITUTIONAL: ANY RECENT FEVER NO . CHILLS NO . WEIGHT CHANGE OF UNKNOWN REASONS NO . MUSCULOSKELETAL: ANY UNUSUAL JOINT PAIN OR SWELLING NOT MENTIONED NO . SYSTEMIC LUPUS NO . ANY NEUROMUSCULAR DISORDER NOT MENTIONED NO . LYME DISEASE NO . GASTROENTEROLOGY: ANY NEW CHANGE IN BOWEL CONTROL? NO . HISTORY OF LIVER DISORDER NOT MENTIONED NO . HISTORY OF UNUSUAL ABDOMINAL PAIN OR CRAMPING NOT MENTIONED NO . NO CONSTIPATION. GENITOURINARY: ANY NEW CHANGE IN BLADDER CONTROL? NO . ANY RENAL/KIDNEY CONDITON NOT MENTIONED NO . NEUROLOGY: HISTORY OF TBI NOT MENTIONED NO . OTHER NEW NUMBNESS OR PAIN PATTERNS NOT MENTIONED NO . NEW ONSET DIZZINESS OR NEUROLOGICAL CHANGES NOT MENTIONED NO . HISTORY OF SEVERE HEADACHES NOT MENTIONED NO . HISTORY OF STROKE OR NEUROLOGICAL DISORDER NOT MENTIONED NO . CARDIOLOGY: HEART SURGERY NO . CONGESTIVE HEART FAILURE/FLUID OVERLOAD NOT MENTIONED NO . HISTORY OF CHEST PAIN,IRREGULAR HEART BEAT NOT MENTIONED NO . RESPIRATORY: SHORTNESS OF BREATH ON EXERTION, WHEEZES, UNUSUAL COUGH NOT MENTIONED NO . ENDOCRINOLOGY: ADRENAL GLAND OR THYROID DISORDERS NOT MENTIONED NO . UNUSUAL URINATION, DIZZINESS OR LETHARGY NOT MENTIONED NO . VITAL SIGNS WT 213.4 LBS, HT 66", BMI 34.44 INDEX, BP 146/101 MM HG, HR 96 /MIN, RR 18 /MIN, TEMP 96.0 F, OXYGEN SAT % 98%, SAFE IN ENV? (Y/N) YES, NA INITIALS AW [id number] KUMARI MA. EXAMINATION GENERAL EXAMINATION: GENERALNO ACUTE DISTRESS, WELL NOURISHED AND HYDRATED. PSYCHAPPROPRIATE MOOD AND AFFECT . LUNGS:CLEAR TO AUSCULTATION BILATERALLY, NO WHEEZES, RHONCHI, RALES. HEART:NO MURMURS, REGULAR RATE AND RHYTHM. BACK:POINT TENDER ALONG LUMBAR SPINE, SURROUNDING SKIN SHOWS NO ERYTHEMA, ECCHYMOSIS, INCREASED WARMTH, AND/OR SKIN ERUPTIONS NOTED. POSITIVE MODIFIED SLR RIGHT SIDE . MUSCULOSKELETAL:NOTABLE WEAKNESS OF THE RIGHT LOWER EXTREMITY, LEFT LOWER EXTREMITY WITHIN NORMAL LIMITS . ASSESSMENTS INTERVERTEBRAL DISC DISORDERS WITH RADICULOPATHY, LUMBOSACRAL REGION - M51.17 (PRIMARY), RISK: (NULL) TREATMENT INTERVERTEBRAL DISC DISORDERS WITH RADICULOPATHY, LUMBOSACRAL REGION MED: PAIN NORCO TABLET 5MG/325MG ORALLY HYDROCODONE/ACETAMINOPHEN (ORDERED FOR 09/22/2020) MEDICATION: VALIUM TAB 5MG ORALLY (DIAZEPAM) (ORDERED FOR 09/22/2020) SALINE LOCK (ORDERED FOR 09/22/2020) NOTES: 40-YEAR-OLD FEMALE IN FOR INITIAL PAIN CONSULT REGARDING LOW BACK PAIN. GIVEN PRESENTING SYMPTOMS AND RESULTS OF PHYSICAL EXAMINATION RECOMMENDED LUMBAR EPIDURAL STEROID INJECTIONS WITH POSTPROCEDURAL FOLLOW-UP. PATIENT HAS EXPRESSED UNDERSTANDING OF AND WAS IN AGREEMENT WITH TREATMENT PLAN. GIVEN TIME TO ASK QUESTIONS AND EXPRESS CONCERNS. CLINICAL NOTES: PREPROCEDURE AND PROCEDURE INFORMATION PRINTED AND PROVIDED TO PATIENT. PATIENT VERBALIZED UNDERSTANDING. KATIE KUMARI MA. PROCEDURE CODES FA211 ESTABILISHED PATIENT [facility] FACILITY CHARGE DISPOSITION & COMMUNICATION FOLLOW UP POST PROCEDURE (REASON: LUMBAR EPIDURAL STEROID INJECTION ) ELECTRONICALLY SIGNED BY MAVERICK ULLOA ON 09/15/2020 AT 08:30 AM EDT DISCLAIMER : THIS IS A VISIT SUMMARY EXTRACTED FROM THE [employer] CHART. IT IS NOT A COPY OF THE [employer] PROGRESS NOTE. MARKUS
== END ==
LOC: M PAIN 08:30
PROVIDERS: ATTEND Family Medicine
DX: M51.17 Intervertebral disc disorders with radiculopathy, lumbosacral region (principal); F17.290 Nicotine dependence, other tobacco product, uncomplicated; Z86.59 Personal history of other mental and behavioral disorders; Z88.5 Allergy status to narcotic agent; Z88.8 Allergy status to other drugs, medicaments and biological substances; Z79.899 Other long term (current) drug therapy

== ENCOUNTER → 2020-09-23 | Outpatient (CLI) | payer OTHER | LOC: M LABSMTC 10:32 | PROVIDERS: ATTEND Anesthesiology | DX: Z01.812 Encounter for preprocedural laboratory examination (principal) ==

== ENCOUNTER → 2020-09-28 | Outpatient (CLI) | payer OTHER ==
[~2020-09-28] MED LIST changes: +ISOVUE-M 300 61% 15ML VIAL As Ordered ONE; +LIDOCAINE 1% SDV 30ML VIAL As Ordered ONE; +diazePAM 5MG TABLET As Ordered ONE; +methylPREDNISolone SUSP 40MG/ML 1ML VIAL (DEPO MEDROL) As Ordered ONE; +oxyCODONE 5MG TAB As Ordered ONE
--- NOTE | 2020-09-29 02:36 | REP ---
INDICATION: LUMBAR EPIDURAL STEROID INJECTION. COMPARISON: None. TECHNIQUE: Intraoperative fluoroscopic imaging using portable C-arm technique. FINDINGS: Images demonstrate catheter and contrast overlying the the sacral epidural space. Total fluoroscopic time 8.7 seconds. IMPRESSION: Status post epidural injection. <Electronically signed by Channing Juarez > 09/29/20 0236
--- NOTE | 2020-09-29 23:58 | ECWPNPC ---
PATIENT NAME: IMER JON : 1980 GENDER: FEMALE VISIT DATE: 09/28/2020 DISCHARGE DATE: 09/28/20 1322 VISIT LOCKED DATE TIME: PHYSICIAN: CROW WILL MD RESOURCE: CROW WILL MD REASON FOR APPOINTMENT 1. CAUDAL EPIDURAL STEROID INJECTION HISTORY OF PRESENT ILLNESS GENERAL: -. FALL RISK SCREENING: SCREENING : 1 FALL REPORTED IN THE LAST YEAR; DISCUSSED PREVIOUSLY. PAIN SCREENING: PATIENT HAS A COMPLAINT OF ACUTE OR CHRONIC PAIN :YES LOCATION OF PAIN:LOW BACK, LEG(S), FEET RIGHT LEG, LEFT BUTTOCKS INTENSITY OF PAIN (SCALE OF 1 TO 10):8 WHAT DOES YOUR PAIN FEEL LIKE:ACHING, CONTINOUS TINGLING IN RIGHT FOOT DURATION:CONTINOUS, CONSTANT, STEADY, ALL DAY PAIN IS INCREASED BY:ACTIVITIES, OTHERS BENDING, WALKING, PROLONGED SITTING PAIN IS DECREASED BY:OTHERS LAYING DOWN, HEAT NURSING NOTE: -. PAIN CENTER INTAKE QUESTIONS: DO YOU HAVE A HISTORY OF MRSA? :NO DO YOU TAKE A BLOOD THINNERS? :NO DO YOU HAVE ANY BLEEDING DISORDERS? :NO BLOOD CLOTS AFTER DCS REVISION. ANY NEW NUMBNESS OR WEAKNESS IN YOUR LEGS OR ARMS? :YES NEW RIGHT FOOT TINGLING ANY PACEMAKER,DEFIBRILLATOR, OR DORSAL COLUMN STIMULATOR? :NO DO YOU HAVE ANY RASHES OR OPEN SORES? :YES RASH TO ARMS - BEING FOLLOWED - NO INFECTION ARE YOU ALLERGIC TO IV DYE? :NO ARE YOU DIABETIC? :NO ANY NEW PROBLEMS WITH YOUR MEDICATIONS? :NO HAVE YOU RECEIVED A VACCINE IN THE PAST 30 DAYS? :NO DO YOU PLAN TO RECEIVE A VACCINE IN THE NEXT 21 DAYS? :NO DO YOU TAKE ANY IMMUNOSUPPRESSIVE MEDICATIONS? :NO ANY HISTORY OF SEIZURES? :NO ANY HISTORY OF CARDIAC ISSUES OR EVENTS? :NO DO YOU HAVE ANY KIDNEY OR LIVER DISEASE? :YES FATTY LIVER DO YOU HAVE SLEEP APNEA? :NO ANY RECENT HEAD INJURY? :NO DO YOU HAVE ANY NEW INFECTIONS? :NO IS THERE A CHANCE YOU COULD BE ? :NO ARE YOU BREAST FEEDING? :NO WHEN DID YOU LAST EAT? : 0300 WHEN DID YOU LAST DRINK? : 0300 WHAT DID YOU LAST DRINK? : WATER NAME OF PERSON DRIVING YOU HOME? : , LAURA DO YOU HAVE ANY OTHER QUESTIONS OR CONCERNS? : - CURRENT MEDICATIONS TAKING OXYCODONE-ACETAMINOPHEN 5-325 MG TABLET 1 TABLET NEEDED ORALLY EVERY 6 HRS, NOTES: 09/27/20 1200 TAKING ADDERALL 10 MG TABLET 1 TABLET ORALLY TWICE A DAY TAKING TRILEPTAL 150 MG TABLET 1 TABLET ORALLY TWICE A DAY, NOTES: 09/27/20 1200 TAKING LINZESS 290 MCG CAPSULE 1 CAPSULE ORALLY ONCE A DAY TAKING OMEPRAZOLE 20 MG CAPSULE DELAYED RELEASE 1 CAPSULE ORALLY ONCE A DAY TAKING LEXAPRO 20 MG TABLET 1 TABLET ORALLY ONCE A DAY NOT-TAKING VITAMIN B COMPLEX-C - CAPSULE 1 CAP ORALLY DAILY NOT-TAKING FISH OIL 1000 MG CAPSULE 1 CAPSULE ORALLY ONCE A DAY NOT-TAKING CALCIUM POLYCARBOPHIL 625 MG TABLET 2 TABLETS NEEDED ORALLY ONCE DAILY NOT-TAKING OXCARBAZEPINE 150 MG TABLET 1 TABLET ORALLY TWICE A DAY NOT-TAKING ESCITALOPRAM OXALATE 20 MG TABLET 1 TABLET ORALLY ONCE A DAY NOT-TAKING EFFEXOR TABLET ORALLY , NOTES: 50MG DAILY MEDICATION LIST REVIEWED AND RECONCILED WITH THE PATIENT PAST MEDICAL HISTORY CHRONIC PAIN ANXIETY DEPRESSION BREAST CANCER PANCREATIC CANCER BIPOLAR II DISORDER HTN ALLERGIES GABAPENTIN: NAUSEA/VOMITING - ALLERGY HYDROMORPHONE HCL: CONFUSION, MEMORY LOSS - SIDE EFFECTS SOCIAL HISTORY GENERAL: TOBACCO USE ARE YOU A:FORMER SMOKER SMOKING CESSATION INFORMATION GIVEN09/14/2020 [employer] DAILY LATEX QUESTIONNAIRE LATEX ALLERGY : HAVE YOU EVER DEVELOPED ANY TYPE OF REACTION AFTER HANDLING LATEX PRODUCTS SUCH RUBBER GLOVES, CONDOMS, DIAPHRAGMS, BALLOONS, SOCKS, OR UNDERWEAR?NO LATEX ALLERGY : HAVE YOU EVER DEVELOPED ANY TYPE OF REACTION DURING OR AFTER DENTAL APPOINTMENT, VAGINAL/RECTAL EXAMINATION, SURGICAL PROCEDURE, OR ANY OTHER EXPOSURE?NO LATEX RISK : HAVE YOU EVER HAD ANY DIFFICULTY BREATHING OR HIVES AFTER EATING OR HANDLING ANY FRUITS, OR VEGETABLES; SUCH KIWI, BANANAS, STONE FRUITS, OR CHESTNUTSNO LATEX RISK : DO YOU HAVE A PREVIOUS PERSONAL HISTORY OF MORE THAN NINE SURGERIES, SPINA BIFIDA, OR REPEATED CATHERIZATIONS? NO LATEX RISK : ARE YOU FREQUENTLY EXPOSED TO LATEX PRODUCTS IN YOUR OCCUPATION?NO DATE ASKED : 09/14/2020 ALCOHOL USE: OCCASIONAL. RECREATIONAL DRUG USE DRUG USE?NO CAFFEINE CAFFEINE USE?YES HOW OFTEN AND HOW MUCH? 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 EXERCISE: WALKS. - WAS THE PROVIDER NOTIFIED OF ANY PERTINENT INFO?YES HAS THE PATIENT BEEN EDUCATED REGARDING HIS/HER PLAN OF CARE?YES HAS THE PATIENT BEEN EDUCATED REGARDING PAIN, THE RISK FOR PAIN, THE IMPORTANCE OF EFFECTIVE PAIN MANAGEMENT, AND THE PAIN ASSESSMENT PROCESS?YES ADVANCE DIRECTIVE ADVANCE DIRECTIVE DISCUSSED WITH PATIENT:NO YFN LUCAS - [phone] VITAL SIGNS WT 210.6 LBS, HT 66", BMI 33.99 INDEX, BP 139/96 MM HG, HR 94 /MIN, RR 18 /MIN, TEMP 97.7 F, OXYGEN SAT % 99%, SAFE IN ENV? (Y/N) YES, NA INITIALS MS 11:03, REVIEWED BY: Larissa ALEXANDER RN. EXAMINATION GENERAL: A HISTORY AND PHYSICAL EXAM ON THE PATIENT WAS DONE ON 09/14/2020 (DATE OF ORIGINAL ASSESSMENT) IN PREPARATION OF SURGERY/PROCEDURE. I HAVE NOW REASSESSED THIS PATIENT'S HEALTH STATUS AND PERFORMED AN UPDATED EXAM TODAY. ALL CHANGES IN THE PATIENT'S HISTORY, PHYSICAL EXAM, PRE-EXISTING CONDITONS, AND INDICATIONS/CONTRAINDICATIONS TO THE PLANNED PROCEDURE AND ANESTHESIA ARE DOCUMENTED AND EVALUATED BELOW. I ATTEST TO THE ADEQUACY AND APPROPRIATENESS OF MY ASSESSMENT, AND CONFIRM THE NECESSITY FOR THE PLANNED PROCEDURE. THE PATIENT IS ALERT, ORIENTED TIMES THREE AND COOPERATIVE. LUNGS ARE CLEAR TO AUSCULTATION. HEART SHOWS REGULAR RHYTHM, NO MURMURS AND NO GALLOPS. ASSESSMENTS LUMBAR POST-LAMINECTOMY SYNDROME - M96.1 (PRIMARY) TREATMENT LUMBAR POST-LAMINECTOMY SYNDROME MEDICATION: VALIUM TAB 10MG ORALLY (DIAZEPAM)SONIA SZYMANSKI 09/28/2020 11:25:40 AM > VERIFIED. RAAD ALEXANDER 09/28/2020 11:29:17 AM > ADMINISTERED. MEDICATION: OXYCODONE HCL TAB 10MG ORALLYDUKESONIA FORTUNE 09/28/2020 11:25:57 AM > VERIFIED. RAAD ALEXANDER 09/28/2020 11:29:45 AM > ADMINISTERED. COMPLETION OF PROCEDURAL VISIT WHEN MEETS CRITERIAARAD ALEXANDER 09/28/2020 1:22:14 PM > CRITERIA MET. OTHERS NOTES: 5/12/21 1652 PAT COMPLETED. Larissa ALEXANDER RN. PROCEDURES PAIN NURSING RECORD PROCEDURE IN ROOM 1155, PHYSICIAN IN ROOM 1225, START 1230, FINISH 1235, PHYSICIAN OUT OF ROOM 1239, OUT OF ROOM 1252, ECG NORMAL SINUS, PATIENT SHIELDED YES, SAFETY STRAP YES, PREP BETADINE Larissa ALEXANDER RN, DRESSING TEGADERM DR. WILL LOC: RAAD ALEXANDER 09/28/2020 12:30:35 PM > , 1. ALERT, ORIENTED RESP: RAAD ALEXANDER 09/28/2020 12:30:40 PM > , 1. REGULAR, NO DYSPNEA COLOR: RAAD ALEXANDER 09/28/2020 12:30:49 PM > , 1. PINK SKIN: RAAD ALEXANDER 09/28/2020 12:30:52 PM > , 1. WARM, DRY POSITION: RAAD ALEXANDER 09/28/2020 12:30:56 PM > , 1. PRONE VITALS: SOO GODDARD 09/28/2020 11:54:19 AM > HR 95 02 86% BP 134/97 RAAD ALEXANDER 09/28/2020 12:01:30 PM > 162/11, 88, 16, 98% RAAD ALEXANDER 09/28/2020 12:05:25 PM > 140/105, 89, 16, 98% RAAD ALEXANDER 09/28/2020 12:14:44 PM > 151/104, 84, 16, 97% RAAD ALEXANDER 09/28/2020 12:28:44 PM > 152/101, 83, 16, 97% RAAD ALEXANDER 09/28/2020 12:41:42 PM > 154/106, 88, 16, 97% RAAD ALEXANDER 09/28/2020 1:05:40 PM > 145/94, 89, 16, 97% COMPLETION OF PROCEDURE APPOINTMENT: POST PAIN 6, DRESSING SITE DRY AND INTACT, IV N/A, GAIT STEADY, TEACHING COMPLETED, PATIENT ACKNOWLEDGES UNDERSTANDING YES, PROCEDURE APPOINTMENT COMPLETED AT 1322 BY: Larissa ALEXADNER RN PN CAUDAL EPIDURALS PRE PROCEDURE DIAGNOSIS LUMBAR POST LAMINECTOMY PAIN SYNDROME POST PROCEDURE DIAGNOSIS LUMBAR POST LAMINECTOMY PAIN SYNDROME PROCEDURE CAUDAL EPIDURAL STEROID INJECTION SURGEON DR. CROW WILL ANALYTICAL STRATEGIST NONE ANESTHESIA LOCAL PRE PROCEDURE NOTE THE PATIENT HAS HISTORY OF CHRONIC LOW BACK PAIN. I EVALUATED THE PATIENT AND REVIEWED THE CHART. I WENT OVER THE RISKS, ALTERNATIVES, AND BENEFITS ASSOCIATED WITH THIS PROCEDURE. THE PATIENT WOULD LIKE TO PROCEED AND GIVE CONSENT TO PERFORMED THE PROCEDURE. THE PATIENT DENIES UNEXPLAINABLE WEIGHT LOSS, FEVER, CHILLS, OR NEW CHANGES IN URINARY OR BOWEL CONTROL. THE PATIENT IS COVID-19 NEGATIVE DESCRIPTION OF PROCEDURE THE PATIENT WAS BROUGHT TO THE PROCEDURE ROOM AND PLACED IN THE PRONE POSITION. THE LUMBOSACRAL AREA WAS CLEANED WITH BETADINE SOLUTION AND DRAPED ASEPTICALLY. THE PROCEDURE WAS DONE UNDER STERILE CONDITIONS. A TIMEOUT WAS PERFORMED WHERE THE CONSENTED SITE WAS VERIFIED WITH EVERYONE IN THE ROOM. UNDER FLUOROSCOPIC GUIDANCE, THE TARGET POINT WAS SELECTED AT THE EPIDURAL SPACE BELOW THE SACROCOCCYGEAL LIGAMENT. I CONFIRMED AGAIN THE SITE OF TARGET. LIDOCAINE 0.5% WAS USE TO NUMB THE SKIN AND THE SUBCUTANEOUS TISSUE BELOW IT. SPINAL NEEDLE, 22-GAUGE 3.5 INCH, WAS ADVANCED UNDER FLUOROSCOPIC GUIDANCE AND FOLLOWING PATIENT FEEDBACK UNTIL THE EPIDURAL SPACE WAS REACHED BY THE LOSS OF RESISTANCE TECHNIQUE. ISOVUE M DYE 30%, 0.25 ML, WAS INJECTED SHOWING ADEQUATE SPREAD OF THE DYE. THEN, A SOLUTION OF 6 ML OF NORMAL SALINE WITH DEPO-MEDROL 40 MG WAS INJECTED SLOWLY FOLLOWING THE PATIENT FEEDBACK. THERE WAS NO EVIDENCE OF BLOOD, PARESTHESIA OR CEREBROSPINAL FLUID DURING THE PROCEDURE. THE PATIENT WAS SENT TO THE RECOVERY ROOM. THE PATIENT WAS MOVING THE EXTREMITIES AND DOING WELL. THERE WAS NO COMPLICATION DURING THE PROCEDURE. ESTIMATED BLOOD LOSS LESS THAN 5 ML. FLUOROSCOPY TIME WAS 8 SECONDS POST PROCEDURE NOTE I WOULD LIKE TO OPTAIN A COPY OF HER OPERATIVE REPORT FROM HER BACK SURGERY. DEPENDING ON THE RESULTS, CONSIDER A RIGHT TRANSFORAMINAL L4-L5, L5-S1. THE PATIENT WILL BE SEEN IN A FOLLOW UP IN THE NEXT FEW WEEKS. I AM LOOKING FOR LONG LASTING RELIEF FOR THE PATIENT WITH THIS INTERVENTION. INSTRUCTIONS WERE GIVEN, QUESTIONS WERE ANSWERED, AND THE PATIENT EXPRESSED UNDERSTANDING AND AGREES WITH THE PLAN. I, GARRETT SPEARS, DOCUMENTED THE ABOVE INFORMATION ACTING A SCRIBE FOR DR. WILL. I HAVE REVIEWED THE ABOVE DOCUMENT, WRITTEN BY GARRETT SPEARS, SPORTS DEVELOPMENT OFFICER, AND I VERIFY THAT IT IS [facility] FLUORO GUIDE SPINE INJECTION (PAIN)[id number] PROCEDURE CODES 83256 LUMBAR/SACRAL W/ IMAGING DISPOSITION & COMMUNICATION FOLLOW UP FOLLOW UP WITH CLAY CARMAN (REASON: POST CAUDAL EPIDURAL STEROID INJECTION) ELECTRONICALLY SIGNED BY CROW WILL MD, MD ON 09/29/2020 AT 04:03 PM EDT DISCLAIMER : THIS IS A VISIT SUMMARY EXTRACTED FROM THE [employer] CHART. IT IS NOT A COPY OF THE [employer] PROGRESS NOTE. MARKUS
== END ==
LOC: M PAIN 11:00
PROVIDERS: ATTEND Anesthesiology
DX: M96.1 Postlaminectomy syndrome, not elsewhere classified (principal); F17.290 Nicotine dependence, other tobacco product, uncomplicated; Z86.59 Personal history of other mental and behavioral disorders; Z88.5 Allergy status to narcotic agent; Z88.8 Allergy status to other drugs, medicaments and biological substances; Z79.899 Other long term (current) drug therapy
CPT/HCPCS: 62323; J1030; Q9967

== ENCOUNTER → 2020-10-11 | Outpatient (CLI) | payer OTHER ==
[~2020-10-11] MED LIST changes: -ISOVUE-M 300 61% 15ML VIAL As Ordered ONE; -LIDOCAINE 1% SDV 30ML VIAL As Ordered ONE; -diazePAM 5MG TABLET As Ordered ONE; -methylPREDNISolone SUSP 40MG/ML 1ML VIAL (DEPO MEDROL) As Ordered ONE; -oxyCODONE 5MG TAB As Ordered ONE
--- NOTE | 2020-10-13 01:29 | ECWPNPC ---
PATIENT NAME: IMER JON : 1980 GENDER: FEMALE VISIT DATE: 10/11/2020 DISCHARGE DATE: 10/11/20 1025 VISIT LOCKED DATE TIME: PHYSICIAN: BOO BHATTI RESOURCE: BOO BHATTI REASON FOR APPOINTMENT 1. POST CAUDAL EPIDURAL STEROID INJECTION HISTORY OF PRESENT ILLNESS GENERAL: HPI 40-YEAR-OLD FEMALE IN FOR POST CAUDAL EPIDURAL STEROID INJECTION FOLLOW-UP. PATIENT FEELS THE PROCEDURE WAS UNSUCCESSFUL. SHE RATES HER PAIN CURRENTLY AT A 9 OUT OF 10 AND DESCRIBES IT CONTINUOUS AND SHOOTING. SHE ADMITS TO INCREASED MUSCLE SPASMS.. -. FALL RISK SCREENING: SCREENING : NO FALLS REPORTED IN THE LAST YEAR. PAIN SCREENING: PATIENT HAS A COMPLAINT OF ACUTE OR CHRONIC PAIN :YES LOCATION OF PAIN:LOW BACK, LEFT HIP, RIGHT HIP INTENSITY OF PAIN (SCALE OF 1 TO 10):9 WHAT DOES YOUR PAIN FEEL LIKE:CONTINOUS, SHOOTING DURATION:CONSTANT PAIN IS DECREASED BY:USE OF PAIN MEDICATIONS PAIN CENTER INTAKE QUESTIONS: DO YOU HAVE A HISTORY OF MRSA? :NO DO YOU TAKE A BLOOD THINNERS? :NO DO YOU HAVE ANY BLEEDING DISORDERS? :NO ANY NEW NUMBNESS OR WEAKNESS IN YOUR LEGS OR ARMS? :NO ANY PACEMAKER,DEFIBRILLATOR, OR DORSAL COLUMN STIMULATOR? :NO DO YOU HAVE ANY RASHES OR OPEN SORES? :NO ARE YOU ALLERGIC TO IV DYE? :NO ARE YOU DIABETIC? :NO ANY NEW PROBLEMS WITH YOUR MEDICATIONS? :NO HAVE YOU RECEIVED A VACCINE IN THE PAST 30 DAYS? :NO DO YOU PLAN TO RECEIVE A VACCINE IN THE NEXT 21 DAYS? :NO DO YOU NEED ANY PRESCRIPTION? :YES PT WOULD LIKE TO DISCUSS YOU PRESCRIBING HER PAIN MEDICATIONS DO YOU TAKE ANY IMMUNOSUPPRESSIVE MEDICATIONS? :NO DO YOU HAVE ANY KIDNEY OR LIVER DISEASE? :NO IS THERE A CHANCE YOU COULD BE ? :NO ARE YOU BREAST FEEDING? :NO CURRENT MEDICATIONS TAKING OXYCODONE-ACETAMINOPHEN 5-325 MG TABLET 1 TABLET NEEDED ORALLY EVERY 6 HRS TAKING ADDERALL 10 MG TABLET 1 TABLET ORALLY TWICE A DAY TAKING TRILEPTAL 150 MG TABLET 1 TABLET ORALLY TWICE A DAY TAKING LINZESS 290 MCG CAPSULE 1 CAPSULE ORALLY ONCE A DAY TAKING OMEPRAZOLE 20 MG CAPSULE DELAYED RELEASE 1 CAPSULE ORALLY ONCE A DAY TAKING LEXAPRO 20 MG TABLET 1 TABLET ORALLY ONCE A DAY NOT-TAKING VITAMIN B COMPLEX-C - CAPSULE 1 CAP ORALLY DAILY NOT-TAKING FISH OIL 1000 MG CAPSULE 1 CAPSULE ORALLY ONCE A DAY NOT-TAKING CALCIUM POLYCARBOPHIL 625 MG TABLET 2 TABLETS NEEDED ORALLY ONCE DAILY NOT-TAKING OXCARBAZEPINE 150 MG TABLET 1 TABLET ORALLY TWICE A DAY NOT-TAKING ESCITALOPRAM OXALATE 20 MG TABLET 1 TABLET ORALLY ONCE A DAY NOT-TAKING EFFEXOR TABLET ORALLY , NOTES: 50MG DAILY MEDICATION LIST REVIEWED AND RECONCILED WITH THE PATIENT PAST MEDICAL HISTORY CHRONIC BACK PAIN DEPRESSION ANXIETY ADHD ALLERGIES GABAPENTIN: NAUSEA/VOMITING - ALLERGY HYDROMORPHONE HCL: CONFUSION, MEMORY LOSS - SIDE EFFECTS SURGICAL HISTORY REMOVAL OF DCS PARTIAL HYSTERECTOMY 2013 TUBAL LIGATION 2012 ECTOPIC 2011 DISCETOMY 2019 DORSAL STIMULATOR IMPLANT 2017 COLONOSCOPY 2007 ENDOSCOPY 2006 FAMILY HISTORY FATHER: ALIVE MOTHER: ALIVE SIBLINGS: ALIVE 1 BROTHER(S) , 1 SISTER(S) - HEALTHY. 1 SON(S) , 1 DAUGHTER(S) - HEALTHY. HOSPITALIZATION/MAJOR DIAGNOSTIC PROCEDURE BLOOD CLOT IN SPINE DUE TO REMOVAL OF DCS, OVERNIGHT STAY 12/2017 REVIEW OF SYSTEMS CONSTITUTIONAL: ANY RECENT FEVER NO . CHILLS NO . WEIGHT CHANGE OF UNKNOWN REASONS NO . GASTROENTEROLOGY: NEW UNEXPLAINABLE CHANGES IN BOWEL CONTROL NO . CONSTIPATION NO . GENITOURINARY: ANY NEW CHANGE IN BLADDER CONTROL? NO . NEUROLOGY: NEW ONSET DIZZINESS OR NEUROLOGICAL CHANGES NOT MENTIONED NO . NEW NUMBNESS OR PAIN PATTERNS NOT MENTIONED AND PERTINENT TO TODAY'S VISIT NO . CARDIOLOGY: NEW CHEST PRESSURE NO . PATIENT DENIES NO . RESPIRATORY: UNEXPLAINABLE COUGH NO . NEW SHORTNESS OF BREATH NO . VITAL SIGNS WT 213.6 LBS, HT 66", BMI 34.47 INDEX, BP 167/114 MM HG, REPEAT BP 150/102 MANUAL , HR 86 /MIN, RR 18 /MIN, TEMP 98.3 F, OXYGEN SAT % 96%, SAFE IN ENV? (Y/N) YES, NA INITIALS MS 09:38, REVIEWED BY: KG. EXAMINATION GENERAL EXAMINATION: GENERALNO ACUTE DISTRESS, WELL NOURISHED AND HYDRATED. PSYCHAPPROPRIATE MOOD AND AFFECT . LUNGS:CLEAR TO AUSCULTATION BILATERALLY, NO WHEEZES, RHONCHI, RALES. HEART:NO MURMURS, REGULAR RATE AND RHYTHM. ASSESSMENTS OTHER CHRONIC PAIN - G89.29 (PRIMARY) INTERVERTEBRAL DISC DISORDERS WITH RADICULOPATHY, LUMBOSACRAL REGION - M51.17, RISK: (NULL) TREATMENT OTHER CHRONIC PAIN PAIN PROCEDURE LOGDATE OF [id number]/13/2021ROCEDURE:CAUDAL EPIDURAL STEROID INJECTIONAMOUNT OF PRE SEDATEVALIUM 10MG; OXYCODONE 10MGRESULT:UNSUCCESSFUL NOTES: PRINT OUT GIVEN ON MEDICATION AND QUESTIONS ANSWERED. INTERVERTEBRAL DISC DISORDERS WITH RADICULOPATHY, LUMBOSACRAL REGION START TIZANIDINE HCL TABLET, 4 MG, 1 TABLET NEEDED, ORALLY, THREE TIMES A DAY PRN, 30 DAY(S), 90 NOTES: 40-YEAR-OLD FEMALE IN FOR POST CAUDAL EPIDURAL FOLLOW-UP. GIVEN PRESENTING SYMPTOMS RECOMMEND STARTING TIZANIDINE 4 MG 3 TIMES A DAY WITH FOLLOW-UP IN 4 WEEKS. PATIENT HAS EXPRESSED UNDERSTANDING OF AND WAS IN AGREEMENT WITH TREATMENT PLAN. GIVEN TIME TO ASK QUESTIONS AND EXPRESS CONCERNS. PROCEDURE CODES FA211 ESTABILISHED PATIENT [facility] CHARGE DISPOSITION & COMMUNICATION FOLLOW UP 4 WEEKS (REASON: NEW MEDICATION ) ELECTRONICALLY SIGNED BY MAVERICK ULLOA ON 10/12/2020 AT 08:34 AM EDT DISCLAIMER : THIS IS A VISIT SUMMARY EXTRACTED FROM THE [employer] CHART. IT IS NOT A COPY OF THE [employer] PROGRESS NOTE. MARKUS
== END ==
LOC: M PAIN 09:30
PROVIDERS: ATTEND Family Medicine
DX: G89.29 Other chronic pain (principal); M51.17 Intervertebral disc disorders with radiculopathy, lumbosacral region; Z86.59 Personal history of other mental and behavioral disorders; Z88.5 Allergy status to narcotic agent; Z88.8 Allergy status to other drugs, medicaments and biological substances; Z79.899 Other long term (current) drug therapy

== ENCOUNTER → 2020-11-09 | Outpatient (CLI) | payer OTHER ==
--- NOTE | 2020-11-11 03:59 | ECWPNPC ---
PATIENT NAME: IMER JON : 1980 GENDER: FEMALE VISIT DATE: 11/09/2020 DISCHARGE DATE: 11/09/20 1010 VISIT LOCKED DATE TIME: PHYSICIAN: BOO BHATTI RESOURCE: BOO BHATTI REASON FOR APPOINTMENT 1. NEW MEDICATION HISTORY OF PRESENT ILLNESS GENERAL: HPI 40-YEAR-OLD FEMALE FOR CHRONIC PAIN FOLLOW-UP. AT LAST CLINIC VISIT PATIENT WAS STARTED ON TIZANIDINE AND SHE ADMITS TODAY THAT THIS HAS BEEN BENEFICIAL. SHE RATES HER PAIN CURRENTLY AT A 7 OUT OF 10 AND DESCRIBES IT ACHING, AND CONTINUOUS.PER RECOMMENDATION OF DR. WILL WE WILL DISCUSS RIGHT TRANSFORAMINAL EPIDURAL STEROID INJECTION FOR PATIENT'S LOW BACK PAIN WITH RADICULAR SYMPTOMS.. -. FALL RISK SCREENING: SCREENING ONE FALLS REPORTED IN THE LAST YEAR WITHOUT INJURY.. PAIN SCREENING: PATIENT HAS A COMPLAINT OF ACUTE OR CHRONIC PAIN :YES LOCATION OF PAIN:LOW BACK INTENSITY OF PAIN (SCALE OF 1 TO 10):7 WHAT DOES YOUR PAIN FEEL LIKE:ACHING, CONTINOUS, THROBBING, SHOOTING DURATION:CONTINOUS, CONSTANT PAIN IS INCREASED BY:ACTIVITIES, PROLONGED STANDING PAIN IS DECREASED BY:USE OF PAIN MEDICATIONS, SITTING NURSING NOTE: -. PAIN CENTER INTAKE QUESTIONS: DO YOU HAVE A HISTORY OF MRSA? :NO DO YOU TAKE A BLOOD THINNERS? :NO DO YOU HAVE ANY BLEEDING DISORDERS? :NO ANY NEW NUMBNESS OR WEAKNESS IN YOUR LEGS OR ARMS? :NO ANY PACEMAKER,DEFIBRILLATOR, OR DORSAL COLUMN STIMULATOR? :NO DO YOU HAVE ANY RASHES OR OPEN SORES? :NO ARE YOU ALLERGIC TO IV DYE? :NO ARE YOU DIABETIC? :NO ANY NEW PROBLEMS WITH YOUR MEDICATIONS? :NO HAVE YOU RECEIVED A VACCINE IN THE PAST 30 DAYS? :NO DO YOU PLAN TO RECEIVE A VACCINE IN THE NEXT 21 DAYS? :NO DO YOU NEED ANY PRESCRIPTION? :NO DO YOU TAKE ANY IMMUNOSUPPRESSIVE MEDICATIONS? :NO DO YOU HAVE ANY KIDNEY OR LIVER DISEASE? :NO IS THERE A CHANCE YOU COULD BE ? :NO ARE YOU BREAST FEEDING? :NO CURRENT MEDICATIONS TAKING OXYCODONE-ACETAMINOPHEN 5-325 MG TABLET 1 TABLET NEEDED ORALLY EVERY 6 HRS TAKING ADDERALL 10 MG TABLET 1 TABLET ORALLY TWICE A DAY TAKING TRILEPTAL 150 MG TABLET 1 TABLET ORALLY TWICE A DAY TAKING LINZESS 290 MCG CAPSULE 1 CAPSULE ORALLY ONCE A DAY TAKING OMEPRAZOLE 20 MG CAPSULE DELAYED RELEASE 1 CAPSULE ORALLY ONCE A DAY TAKING LEXAPRO 20 MG TABLET 1 TABLET ORALLY ONCE A DAY TAKING TIZANIDINE HCL 4 MG TABLET 1 TABLET NEEDED ORALLY THREE TIMES A DAY PRN NOT-TAKING VITAMIN B COMPLEX-C - CAPSULE 1 CAP ORALLY DAILY NOT-TAKING FISH OIL 1000 MG CAPSULE 1 CAPSULE ORALLY ONCE A DAY NOT-TAKING CALCIUM POLYCARBOPHIL 625 MG TABLET 2 TABLETS NEEDED ORALLY ONCE DAILY NOT-TAKING OXCARBAZEPINE 150 MG TABLET 1 TABLET ORALLY TWICE A DAY NOT-TAKING ESCITALOPRAM OXALATE 20 MG TABLET 1 TABLET ORALLY ONCE A DAY NOT-TAKING EFFEXOR TABLET ORALLY , NOTES: 50MG DAILY MEDICATION LIST REVIEWED AND RECONCILED WITH THE PATIENT PAST MEDICAL HISTORY CHRONIC BACK PAIN DEPRESSION ANXIETY ADHD ALLERGIES GABAPENTIN: NAUSEA/VOMITING - ALLERGY HYDROMORPHONE HCL: CONFUSION, MEMORY LOSS - SIDE EFFECTS FAMILY HISTORY FATHER: ALIVE MOTHER: ALIVE SIBLINGS: ALIVE 1 BROTHER(S) , 1 SISTER(S) - HEALTHY. 1 SON(S) , 1 DAUGHTER(S) - HEALTHY. SOCIAL HISTORY GENERAL: TOBACCO USE ARE YOU A:FORMER SMOKER SMOKING CESSATION INFORMATION GIVEN09/14/2020 [facility] DAILY LATEX QUESTIONNAIRE LATEX ALLERGY : HAVE YOU EVER DEVELOPED ANY TYPE OF REACTION AFTER HANDLING LATEX PRODUCTS SUCH RUBBER GLOVES, CONDOMS, DIAPHRAGMS, BALLOONS, SOCKS, OR UNDERWEAR?NO LATEX ALLERGY : HAVE YOU EVER DEVELOPED ANY TYPE OF REACTION DURING OR AFTER DENTAL APPOINTMENT, VAGINAL/RECTAL EXAMINATION, SURGICAL PROCEDURE, OR ANY OTHER EXPOSURE?NO LATEX RISK : HAVE YOU EVER HAD ANY DIFFICULTY BREATHING OR HIVES AFTER EATING OR HANDLING ANY FRUITS, OR VEGETABLES; SUCH KIWI, BANANAS, STONE FRUITS, OR CHESTNUTSNO LATEX RISK : DO YOU HAVE A PREVIOUS PERSONAL HISTORY OF MORE THAN NINE SURGERIES, SPINA BIFIDA, OR REPEATED CATHERIZATIONS? NO LATEX RISK : ARE YOU FREQUENTLY EXPOSED TO LATEX PRODUCTS IN YOUR OCCUPATION?NO DATE ASKED : 11/09/2020 ALCOHOL USE: OCCASIONAL. RECREATIONAL DRUG USE DRUG USE?NO CAFFEINE CAFFEINE USE?YES HOW OFTEN AND HOW MUCH? 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 EXERCISE: WALKS. - WAS THE PROVIDER NOTIFIED OF ANY PERTINENT INFO?YES HAS THE PATIENT BEEN EDUCATED REGARDING HIS/HER PLAN OF CARE?YES HAS THE PATIENT BEEN EDUCATED REGARDING PAIN, THE RISK FOR PAIN, THE IMPORTANCE OF EFFECTIVE PAIN MANAGEMENT, AND THE PAIN ASSESSMENT PROCESS?YES ADVANCE DIRECTIVE ADVANCE DIRECTIVE DISCUSSED WITH PATIENT:NO YFN LUCAS - [phone] REVIEW OF SYSTEMS CONSTITUTIONAL: ANY RECENT FEVER NO . CHILLS NO . WEIGHT CHANGE OF UNKNOWN REASONS NO . GASTROENTEROLOGY: NEW UNEXPLAINABLE CHANGES IN BOWEL CONTROL NO . CONSTIPATION NO . GENITOURINARY: ANY NEW CHANGE IN BLADDER CONTROL? NO . NEUROLOGY: NEW ONSET DIZZINESS OR NEUROLOGICAL CHANGES NOT MENTIONED NO . NEW NUMBNESS OR PAIN PATTERNS NOT MENTIONED AND PERTINENT TO TODAY'S VISIT NO . CARDIOLOGY: NEW CHEST PRESSURE NO . PATIENT DENIES NO . RESPIRATORY: UNEXPLAINABLE COUGH NO . NEW SHORTNESS OF BREATH NO . VITAL SIGNS WT 212.6 LBS, HT 66", BMI 34.31 INDEX, BP 144/73 MM HG, HR 82 /MIN, RR 18 /MIN, TEMP 98.0 F, OXYGEN SAT % 98%, SAFE IN ENV? (Y/N) YES, NA INITIALS AW 0940, REVIEWED BY: CHANELLE KUMARI MA. EXAMINATION GENERAL EXAMINATION: GENERALNO ACUTE DISTRESS, WELL NOURISHED AND HYDRATED. PSYCHAPPROPRIATE MOOD AND AFFECT . LUNGS:CLEAR TO AUSCULTATION BILATERALLY, NO WHEEZES, RHONCHI, RALES. HEART:NO MURMURS, REGULAR RATE AND RHYTHM. BACK:POINT TENDER RIGHT LUMBAR SPINE, POSITIVE MODIFIED SLR RIGHT SIDE. MUSCULOSKELETAL:EQUAL STRENGTH OF THE LOWER EXTREMITIES BILATERALLY. ASSESSMENTS INTERVERTEBRAL DISC DISORDERS WITH RADICULOPATHY, LUMBOSACRAL REGION - M51.17 (PRIMARY), RISK: (NULL) TREATMENT INTERVERTEBRAL DISC DISORDERS WITH RADICULOPATHY, LUMBOSACRAL REGION MEDICATION: OXYCODONE HCL TAB 10MG ORALLY (ORDERED FOR 11/17/2020) MEDICATION: VALIUM TAB 10MG ORALLY (DIAZEPAM) (ORDERED FOR 11/17/2020) NOTES: 40-YEAR-OLD FEMALE IN FOR CHRONIC PAIN FOLLOW-UP. GIVEN PRESENTING SYMPTOMS AND RESULTS OF PHYSICAL EXAMINATION RECOMMEND RIGHT TRANSFORAMINAL EPIDURAL STEROID INJECTION L4-L5 L5-S1 WITH POSTPROCEDURAL FOLLOW-UP. PATIENT HAS EXPRESSED UNDERSTANDING OF AND WAS IN AGREEMENT WITH TREATMENT PLAN. GIVEN TIME TO ASK QUESTIONS AND EXPRESS CONCERNS. CLINICAL NOTES: PREPROCEDURE AND PROCEDURE INFORMATION PRINTED AND PROVIDED TO PATIENT. PATIENT VERBALIZED AN UNDERSTANDING. KATIE KUMARI MA. PROCEDURE CODES [id number] ESTABILISHED PATIENT [facility] CHARGE DISPOSITION & COMMUNICATION FOLLOW UP POST PROCEDURE (REASON: RIGHT TRANSFORAMINAL EPIDURAL STEROID INJECTION L4-L5,L5-S1) ELECTRONICALLY SIGNED BY MAVERICK ULLOA ON 11/10/2020 AT 09:18 AM EDT DISCLAIMER : THIS IS A VISIT SUMMARY EXTRACTED FROM THE [id number] CHART. IT IS NOT A COPY OF THE [id number] PROGRESS NOTE. TAMIRD
== END ==
LOC: M PAIN 09:30
PROVIDERS: ATTEND Family Medicine
DX: M51.17 Intervertebral disc disorders with radiculopathy, lumbosacral region (principal); G89.29 Other chronic pain; Z86.59 Personal history of other mental and behavioral disorders; Z87.891 Personal history of nicotine dependence; Z88.5 Allergy status to narcotic agent; Z88.8 Allergy status to other drugs, medicaments and biological substances; Z79.899 Other long term (current) drug therapy

== ENCOUNTER → 2020-12-16 | Outpatient (CLI) | payer OTHER | LOC: M LABSMTC 09:51 | PROVIDERS: ATTEND Anesthesiology | DX: Z20.822 Contact with and (suspected) exposure to COVID-19 (principal) ==

== ENCOUNTER → 2020-12-21 | Outpatient (CLI) | payer OTHER ==
[~2020-12-21] MED LIST changes: +BUPIVACAINE HCL 0.25% 30ML VIAL As Ordered ONE; +ISOVUE-M 300 61% 15ML VIAL As Ordered ONE; +LIDOCAINE 1% SDV 30ML VIAL As Ordered ONE; +dexameTHASONE 10MG/1ML VIAL PRES.FREE (J1100 PER 1MG) As Ordered ONE; +diazePAM 5MG TABLET As Ordered ONE; +oxyCODONE 5MG TAB As Ordered ONE
--- NOTE | 2020-12-21 17:09 | REP ---
INDICATION: RIGHT TRANSFORAMINAL EPIDURALSTEROID INJECTION. COMPARISON: 09/28/2020. TECHNIQUE: Multiple C-arm views lower lumbar spine performed. FINDINGS: [place] are seen along the lower lumbar spine. IMPRESSION: 80 seconds of fluoroscopy time was utilized. <Electronically signed by Arnol Ames > 12/21/20 [id number]
--- NOTE | 2020-12-27 03:09 | ECWPNPC ---
PATIENT NAME: IMER JON : 1980 GENDER: FEMALE VISIT DATE: 12/21/2020 DISCHARGE DATE: 12/21/20 1558 VISIT LOCKED DATE TIME: PHYSICIAN: CROW WILL MD RESOURCE: CROW WILL MD REASON FOR APPOINTMENT 1. RIGHT TRANSFORAMINAL EPIDURAL STEROID INJECTION L4-L5,L5-S1 HISTORY OF PRESENT ILLNESS GENERAL: -. FALL RISK SCREENING: SCREENING : NO FALLS REPORTED IN THE LAST YEAR. PAIN SCREENING: PATIENT HAS A COMPLAINT OF ACUTE OR CHRONIC PAIN :YES LOCATION OF PAIN:LOW BACK INTENSITY OF PAIN (SCALE OF 1 TO 10):7 WHAT DOES YOUR PAIN FEEL LIKE:ACHING, SHARP, STABBING, SHOOTING DURATION:CONTINOUS, CONSTANT PAIN IS INCREASED BY:ACTIVITIES PAIN IS DECREASED BY:SITTING NURSING NOTE: -. PAIN CENTER INTAKE QUESTIONS: DO YOU HAVE A HISTORY OF MRSA? :NO DO YOU TAKE A BLOOD THINNERS? :NO DO YOU HAVE ANY BLEEDING DISORDERS? :NO ANY NEW NUMBNESS OR WEAKNESS IN YOUR LEGS OR ARMS? :NO ANY PACEMAKER,DEFIBRILLATOR, OR DORSAL COLUMN STIMULATOR? :NO DO YOU HAVE ANY RASHES OR OPEN SORES? :YES ON INNER ASPECT OF LEFT ARM ARE YOU ALLERGIC TO IV DYE? :NO ARE YOU DIABETIC? :NO ANY NEW PROBLEMS WITH YOUR MEDICATIONS? :NO HAVE YOU RECEIVED A VACCINE IN THE PAST 30 DAYS? :NO DO YOU PLAN TO RECEIVE A VACCINE IN THE NEXT 21 DAYS? :NO DO YOU TAKE ANY IMMUNOSUPPRESSIVE MEDICATIONS? :NO ANY HISTORY OF SEIZURES? :NO ANY HISTORY OF CARDIAC ISSUES OR EVENTS? :NO DO YOU HAVE ANY KIDNEY OR LIVER DISEASE? :NO DO YOU HAVE SLEEP APNEA? :NO ANY RECENT HEAD INJURY? :NO DO YOU HAVE ANY NEW INFECTIONS? :NO IS THERE A CHANCE YOU COULD BE ? :NO ARE YOU BREAST FEEDING? :NO WHEN DID YOU LAST EAT? : -12/20/20 @ 2300 WHEN DID YOU LAST DRINK? : -12/21/20 @ 0800 WHAT DID YOU LAST DRINK? : -WATER NAME OF PERSON DRIVING YOU HOME? : -S/O DO YOU HAVE ANY OTHER QUESTIONS OR CONCERNS? : -DENIES CURRENT MEDICATIONS TAKING OXYCODONE-ACETAMINOPHEN 5-325 MG TABLET 1 TABLET NEEDED ORALLY EVERY 6 HRS, NOTES: 12/20/20@1800 TAKING ADDERALL 10 MG TABLET 1 TABLET ORALLY TWICE A DAY TAKING TRILEPTAL 150 MG TABLET 1 TABLET ORALLY TWICE A DAY TAKING LINZESS 290 MCG CAPSULE 1 CAPSULE ORALLY ONCE A DAY TAKING OMEPRAZOLE 20 MG CAPSULE DELAYED RELEASE 1 CAPSULE ORALLY ONCE A DAY TAKING LEXAPRO 20 MG TABLET 1 TABLET ORALLY ONCE A DAY TAKING TIZANIDINE HCL 4 MG TABLET 1 TABLET NEEDED ORALLY THREE TIMES A DAY PRN NOT-TAKING VITAMIN B COMPLEX-C - CAPSULE 1 CAP ORALLY DAILY NOT-TAKING FISH OIL 1000 MG CAPSULE 1 CAPSULE ORALLY ONCE A DAY NOT-TAKING CALCIUM POLYCARBOPHIL 625 MG TABLET 2 TABLETS NEEDED ORALLY ONCE DAILY NOT-TAKING OXCARBAZEPINE 150 MG TABLET 1 TABLET ORALLY TWICE A DAY NOT-TAKING ESCITALOPRAM OXALATE 20 MG TABLET 1 TABLET ORALLY ONCE A DAY NOT-TAKING EFFEXOR TABLET ORALLY , NOTES: 50MG DAILY MEDICATION LIST REVIEWED AND RECONCILED WITH THE PATIENT PAST MEDICAL HISTORY CHRONIC BACK PAIN DEPRESSION ANXIETY ADHD ALLERGIES GABAPENTIN: NAUSEA/VOMITING - ALLERGY HYDROMORPHONE HCL: CONFUSION, MEMORY LOSS - SIDE EFFECTS VITAL SIGNS WT 205.8 LBS, WT-KG 93.35 KG, HT 66", BMI 33.21 INDEX, BP 166/105 MM HG, REPEAT BP 145/91 MM HG, HR 85 /MIN, RR 18 /MIN, TEMP 97.8 F, OXYGEN SAT % 98%, SAFE IN ENV? (Y/N) Y, NA INITIALS SC 14:21, REVIEWED BY: MIREYA IS AWEAR OF PT'S BP. EXAMINATION GENERAL: THE PATIENT IS ALERT, ORIENTED TIMES THREE AND COOPERATIVE. LUNGS ARE CLEAR TO AUSCULTATION. HEART SHOWS REGULAR RHYTHM, NO MURMURS AND NO GALLOPS. ASSESSMENTS INTERVERTEBRAL DISC DISORDERS WITH RADICULOPATHY, LUMBOSACRAL REGION - M51.17 (PRIMARY) TREATMENT INTERVERTEBRAL DISC DISORDERS WITH RADICULOPATHY, LUMBOSACRAL REGION [facility] FLUORO GUIDE SPINE INJECTION (PAIN)[id number] COMPLETION OF PROCEDURAL VISIT WHEN MEETS [id number] 12/21/2020 4:25:15 PM > CRITERIA MET @1448 MEDICATION: PAIN OXYCODONE HCL TAB 10MG [id number],JAMIE L 12/21/2020 1:48:42 PM > VERIFIED. DURAN DUNBAR 12/21/2020 1:54:22 PM > ADMINISTERED MEDICATION: PAIN VALIUM TAB 10MG ORALLY (DIAZEPAM)[id number],JAMIE L 12/21/2020 1:49:00 PM > VERIFIED. DURAN DUNBAR 12/21/2020 1:54:47 PM > ADMINISTERED CLINICAL NOTES: DR NOTIFIED OF PATIENT BP BY MACHINE AT 210/120, AND BP TRENDING UPWARD. REQUESTED THAT THE BP BE RE-TAKEN MANUALLY, AND REPORTED BACK TO HIM. SECOND POST PROCEDURE BP WAS 158/118. A CALL TO [facility] [place] [facility] WAS UNSUCCESSFUL. PATIENT AGREE TO CALL [place] [facility] IN THE MORNING TO BE EVALUATED, STATES IS ASYMPTOMATIC. IS SUPPORTIVE OF PATIENT GETTING WORK UP FOR HER ELEVATED BP, STATING THAT THIS IS NOT NEW. PATIENT APPOINTMENT IS CONCLUDED. TBRADLEYRN. PROCEDURES PAIN NURSING RECORD PROCEDURE IN ROOM 1430, PHYSICIAN IN ROOM 1450, START 1455, FINISH 1515, PHYSICIAN OUT OF ROOM 1518, OUT OF ROOM 1522, ECG NORMAL SINUS, PATIENT SHIELDED NO, SAFETY STRAP NO, PREP CHLOROPREP, BETADINE Tony DUNBAR RN, DR. WILL, DRESSING TEGADERM DR. WILL LOC: 1. ALERT, ORIENTED, DURAN DUNBAR 12/21/2020 2:59:29 PM > RESP: 1. REGULAR, NO DYSPNEA, DURAN DUNBAR 12/21/2020 2:59:40 PM > COLOR: 1. PINKBETTINA TOM 12/21/2020 2:59:46 PM > SKIN: 1. WARM, DRY, DURAN DUNBAR 12/21/2020 2:59:51 PM > POSITION: 1. PRONEBETTINA TOM 12/21/2020 2:59:57 PM > VITALS: 1445 - HR78, 140/94,98% R14 1500 - HR 78, 157/101, 98% R14 1515 - HR73, 150/98, 98%, R14 1520 - HR 73, 210/120, 98%, R14 PATIENT ASYMPTOMATIC. MD NOTIFIED MANUAL 1525 - HR 72, 158/118, 98%, R14 PAIN 07/26 MD NOTIFIED 1530 - HR 77, 130/110, 98% R14 1545- BP 138/80 PATIENT LAYING ON LEFT SIDE, PRESSURE TAKEN IN RA BY Carrie SANCHEZ RN. NOTES Tony DUNBAR RN PN LUMBAR TRANSFORAMINAL BLOCKS PRE PROCEDURE DIAGNOSIS LUMBAR DISC DISORDER WITH RADICULOPATHY POST PROCEDURE DIAGNOSIS LUMBAR DISC DISORDER WITH RADICULOPATHY PROCEDURE RIGHT L4-L5 AND RIGHT L5-S1 TRANSFORAMINAL EPIDURAL STEROID INJECTION UNDER FLUOROSCOPIC GUIDANCE SURGEON DR CROW WILL WEBSPHERE CONSULTANT NONE ANESTHESIA LOCAL PRE PROCEDURE NOTE THE PATIENT WITH HISTORY OF CHRONIC LOW BACK PAIN. I EVALUATED THE PATIENT AND REVIEWED THE CHART. I WENT OVER THE RISKS, ALTERNATIVES, AND BENEFITS ASSOCIATED WITH THIS PROCEDURE. THE PATIENT WOULD LIKE TO PROCEED AND GIVE CONSENT TO PERFORMED THE PROCEDURE. THE PATIENT DENIES UNEXPLAINABLE WEIGHT LOSS, FEVER, CHILLS, OR CHANGES IN URINARY OR BOWEL CONTROL. THE PATIENT IS COVID-19 NEGATIVE DESCRIPTION OF PROCEDURE THE PATIENT WAS BROUGHT TO THE PROCEDURE ROOM AND PLACED IN THE PRONE POSITION. THE LUMBOSACRAL AREA WAS CLEANED WITH BETADINE SOLUTION AND DRAPED ASEPTICALLY. THE PROCEDURE WAS DONE UNDER STERILE CONDITIONS. A TIMEOUT WAS PERFORMED WHERE THE CONSENTED SITE WAS VERIFIED WITH EVERYONE IN THE ROOM. UNDER FLUOROSCOPIC GUIDANCE, THE TARGET POINT WAS SELECTED AT THE RIGHT TRANSFORAMINAL OPENING OF L4 AND RIGHT TRANSFORAMINAL OPENING OF L5. TARGET POINT WAS SELECTED AFTER LATERAL ROTATION AND TILT OF THE MAGNIFIER OF THE C-ARM. I CONFIRMED AGAIN THE SITE OF TARGET. LIDOCAINE 0.5% WAS USED TO NUMB THE SKIN AND THE SUBCUTANEOUS TISSUE BELOW IT. AN EPIMED INTRODUCER, 18-GAUGE, WAS ADVANCED UNTIL I WENT CLOSE TO THE SELECTED TRANSFORAMINAL OPENINGS. AFTER PROPER POSITION OF THE NEEDLES WAS ACHIEVED, A 22-GAUGE, EPIMED NEEDLE, WAS PLACED INSIDE OF THE INTRODUCER AND ADVANCED TO THE TRANSFORAMINAL OPENING OF THE SELECTED SITES. WHEN PROPER POSITION OF THE NEEDLE WAS ACHIEVED, ISOVUE-M DYE 30%, 0.25 ML, WAS INJECTED SHOWING ADEQUATE SPREAD OF THE DYE. THIS WAS DONE UNDER DIGITAL SUBTRACTION AND ANGIOGRAPHY. THERE WAS NO VASCULAR UPDATE. THEN, A SOLUTION OF 2 ML OF BUPIVACAINE 0.25% AND DEXAMETHASONE 10 MG WAS INJECTED AT EACH SITE. THE MEDICATION WAS VERIFIED WITH THE NURSE. THERE WAS NO EVIDENCE OF BLOOD, PARESTHESIA OR CEREBROSPINAL FLUID DURING THE PROCEDURE. THE PATIENT WAS SENT TO THE RECOVERY ROOM. THE PATIENT WAS MOVING THE EXTREMITIES AND DOING WELL. THERE WAS NO COMPLICATION DURING THE PROCEDURE. ESTIMATED BLOOD LOSS WAS LESS THAN 5 ML. FLUOROSCOPY TIME WAS 1 MINUTE 38 SECONDS POST PROCEDURE NOTE L5 WAS VERY STENOTIC. I HAD TO REMOVE THE NEEDLE AND REPOSITION IT. THE PROCEDURE DONE WAS DISCUSSED WITH THE PATIENT. THE PATIENT WILL BE SEEN IN A FOLLOW UP IN THE NEXT FEW WEEKS. I AM LOOKING FOR LONG LASTING PAIN RELIEF FOR THE PATIENT WITH THIS INTERVENTION. INSTRUCTIONS WERE GIVEN, QUESTIONS WERE ANSWERED, AND THE PATIENT EXPRESSED UNDERSTANDING AND AGREES WITH THE PLAN. I, GARRETT SPEARS, DOCUMENTED THE ABOVE INFORMATION ACTING A SCRIBE FOR DR. WILL. I HAVE REVIEWED THE ABOVE DOCUMENT, WRITTEN BY GARRETT SPEARS, SAW SETTER, AND I VERIFY THAT IT IS ACCURATE -. VISIT CODES PROCEDURE CODES 52236 INJ FORAMEN EPIDURAL L/S, [place]: [place] [id number] INJ FORAMEN EPIDURAL ADD-ON, MODIFIERS: RT DISPOSITION & COMMUNICATION FOLLOW UP FOLLOW UP WITH SPIKE MACHINE FEEDER (REASON: POST RIGHT TRANSFORAMINAL EPIDURAL STEROID INJECTION L4-L5, L5-S1) ELECTRONICALLY SIGNED BY CROW WILL MD, MD ON 12/26/2020 AT 01:38 PM EDT DISCLAIMER : THIS IS A VISIT SUMMARY EXTRACTED FROM THE [employer] CHART. IT IS NOT A COPY OF THE [employer] PROGRESS NOTE. [place]
== END ==
LOC: M PAIN 13:20
PROVIDERS: ATTEND Anesthesiology
DX: M51.17 Intervertebral disc disorders with radiculopathy, lumbosacral region (principal); Z86.59 Personal history of other mental and behavioral disorders; Z88.5 Allergy status to narcotic agent; Z88.8 Allergy status to other drugs, medicaments and biological substances; Z79.899 Other long term (current) drug therapy
CPT/HCPCS: 64483; 64484; J1100; Q9967

== ENCOUNTER 2021-04-20 15:35 | Outpatient (CLI) | payer OTHER ==
[~2021-04-20] VITALS: Ht 172.7 cm; Wt 90.7 kg
[~2021-04-20 15:35] MED LIST changes: +ACETAMINOPHEN TAB 650MG DOSE (2X325MG) PO ONE; +ALBUTEROL 90 MCG/ACT 8GM HFA INHALER INH PRN; +ALBUTEROL SULFATE 2.5 MG/0.5 ML INH NEB SOLN INH PRN; -BUPIVACAINE HCL 0.25% 30ML VIAL As Ordered ONE; +CASIRIVIMAB/IMDEVIMAB 1,200 MG in NS 250 ML IV ONE; +EPINEPHrine INJ 1 MG/ML 1ML AMP IM PRN; -ISOVUE-M 300 61% 15ML VIAL As Ordered ONE; -LIDOCAINE 1% SDV 30ML VIAL As Ordered ONE; -MAGN400T3 PO; +MAGN400T33 PO; +NS 1,000 ML IV SCH; +[UNRECOGNIZED DRUG - OTHER] IV ONE; -dexameTHASONE 10MG/1ML VIAL PRES.FREE (J1100 PER 1MG) As Ordered ONE; -diazePAM 5MG TABLET As Ordered ONE; +diphenhydrAMINE 50MG/ML VIAL (J1200) IV PRN; +methylPREDNISolone 125MG 2ML VIAL IV PRN; -oxyCODONE 5MG TAB As Ordered ONE
[2021-04-20 15:57] VITALS: BP 135/97
[2021-04-20 16:27] VITALS: BP 147/98
[2021-04-20 16:57] VITALS: BP 150/94
[2021-04-20 17:57] VITALS: BP 159/89
== END 2021-04-20 17:57 | disposition home or self-care (01) ==
LOC: M OPCLI4PR 15:35
PROVIDERS: ATTEND Family Medicine
DX: U07.1 COVID-19 (principal); Z88.8 Allergy status to other drugs, medicaments and biological substances

== ENCOUNTER 2023-01-10 06:53 | Day surgery (SDC) | payer OTHER ==
[~2023-01-10] VITALS: Ht 170.2 cm; Wt 80.2 kg
[~2023-01-10 06:53] MED LIST changes: -ACETAMINOPHEN TAB 650MG DOSE (2X325MG) PO ONE; +ADDE10CA3 PO; -ALBUTEROL 90 MCG/ACT 8GM HFA INHALER INH PRN; -ALBUTEROL SULFATE 2.5 MG/0.5 ML INH NEB SOLN INH PRN; +AZIT500T5 PO; -CASIRIVIMAB/IMDEVIMAB 1,200 MG in NS 250 ML IV ONE; -EPINEPHrine INJ 1 MG/ML 1ML AMP IM PRN; +NS 1,000 ML IV ONE; -NS 1,000 ML IV SCH; +OXCA300T14 PO; +TOPI-254 PO; -TOPI50TA9 PO; -[UNRECOGNIZED DRUG - OTHER] IV ONE; -diphenhydrAMINE 50MG/ML VIAL (J1200) IV PRN; -methylPREDNISolone 125MG 2ML VIAL IV PRN
[2023-01-10] MEDS ORDERED: propofoL 200 MG/20 ML VIAL As Ordered ONE (06:59)
[2023-01-10] MEDS ORDERED: LIDOCAINE 2% 100MG/5ML SDV (FOR ANES.) As Ordered ONE (06:59)
[2023-01-10] MEDS ORDERED: fentaNYL 100 MCG/2 ML INJECTION As Ordered ONE (07:59)
[2023-01-10 08:45] VITALS: TEMP 97.6
[2023-01-10 09:04] VITALS: BP 122/72; O2SAT 100
== END 2023-01-10 09:12 | disposition home or self-care (01) ==
LOC: M OPP 06:53
PROVIDERS: ATTEND Surgery
DX: Z12.11 Encounter for screening for malignant neoplasm of colon (principal); K57.30 Diverticulosis of large intestine without perforation or abscess without bleeding; R13.10 Dysphagia, unspecified; R12 Heartburn; K21.9 Gastro-esophageal reflux disease without esophagitis; M19.90 Unspecified osteoarthritis, unspecified site; G43.909 Migraine, unspecified, not intractable, without status migrainosus; F41.9 Anxiety disorder, unspecified; F32.A Depression, unspecified; F90.9 Attention-deficit hyperactivity disorder, unspecified type; F17.290 Nicotine dependence, other tobacco product, uncomplicated; Z88.5 Allergy status to narcotic agent; Z88.8 Allergy status to other drugs, medicaments and biological substances; Z79.899 Other long term (current) drug therapy
CPT/HCPCS: 43235; G0121; J3010

== ENCOUNTER → 2024-09-15 | Outpatient (CLI) | payer OTHER ==
[~2024-09-15] MED LIST changes: -AMBI10TA PO; -EFFE150C2 PO; +EFFE150C3 PO; -NS 1,000 ML IV ONE; +PREG-35; -PREG100CA; -PREG50CA; +PREG50CA87; +TOPI-21 PO; -TOPI-254 PO; +ZOLP-533 PO
== END ==
LOC: M RAD 15:57
PROVIDERS: ATTEND Family Medicine
DX: Z01.89 Encounter for other specified special examinations (principal); M50.123 Cervical disc disorder at C6-C7 level with radiculopathy; M50.322 Other cervical disc degeneration at C5-C6 level; M50.122 Cervical disc disorder at C5-C6 level with radiculopathy